=== PATIENT | female | born 1950 | race Caucasian/White ===

== ENCOUNTER 2016-12-24 22:36 | Emergency (ER) | payer MEDICARE, SELFPAY ==
[2016-12-24 22:46] VITALS: BP 132/70
[2016-12-24] MEDS ORDERED: Sodium Chloride 0.9% 10 ML Syringe FLUSH PRN (22:54)
[2016-12-24] MEDS ORDERED: HYDROmorphone 1 MG/ML Syringe IVPUSH ONE ×2 (22:55→23:30)
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
[2016-12-25] MEDS ORDERED: Ketorolac 30 MG/ML SDV IVPUSH ONE (00:23)
[2016-12-25] MEDS ORDERED: fentaNYL 100 MCG/2 ML SDV IVPUSH ONE (00:23)
[2016-12-25] MEDS ORDERED: Famotidine 20 MG Tab PO ONE (01:17)
--- NOTE | 2016-12-25 07:35 | CR ---
Chest: Portable view of the chest was obtained. Comparison: Previous chest x-ray of 06/06/16. Heart is slightly prominent. Tortuous thoracic aorta is seen. Lungs are clear. Minimal scoliosis is present within the spine. Bony structures are osteopenic. Impression: 1. Findings as described above. Nothing acute is identified on portable chest x-ray. Diagnostic code #2
== END 2016-12-25 02:17 | disposition home or self-care (01) ==
LOC: JD.ED 22:36
DX: R07.89 Other chest pain (principal); M54.5 Low back pain; J44.9 Chronic obstructive pulmonary disease, unspecified; M19.90 Unspecified osteoarthritis, unspecified site; E11.9 Type 2 diabetes mellitus without complications; M81.0 Age-related osteoporosis without current pathological fracture; F17.210 Nicotine dependence, cigarettes, uncomplicated; Z79.899 Other long term (current) drug therapy; Z88.1 Allergy status to other antibiotic agents; Z88.6 Allergy status to analgesic agent; Z88.8 Allergy status to other drugs, medicaments and biological substances; Z91.030 Bee allergy status; Z79.02 Long term (current) use of antithrombotics/antiplatelets
CPT/HCPCS: 36415; 71010; 80053; 84484; 85025; 93005; 96374; 96375; 96376; 99285; A9270; J1170; J1885; J3010; J7050; 99284

== ENCOUNTER 2017-01-06 23:25 | Emergency (ER) | payer MEDICARE, SELFPAY ==
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
[2017-01-06 23:46] VITALS: BP 112/86
[2017-01-07] MEDS ORDERED: LORazepam 2 MG/ML MDV IVPUSH ONE (00:27)
[2017-01-07] MEDS ORDERED: diphenhydrAMINE 50 MG/ML SDV IVPUSH ONE (02:01)
[2017-01-07] MEDS ORDERED: Lactated Ringers 1,000 ML IV ONE (02:01)
[2017-01-07] MEDS ORDERED: Doxycycline 100 MG Cap PO ONE (02:33)
--- NOTE | 2017-01-07 14:37 | CR ---
Chest: Portable view of the chest was obtained. Comparison: Previous chest x-ray of 12/24/16. Heart size mildly prominent. Mild tortuosity of the thoracic aorta is seen. Scoliosis is present within the spine. Lungs are clear with no acute infiltrates. Impression: 1. Incidental findings as noted above. Nothing acute is identified on portable chest x-ray. Diagnostic code #2
--- NOTE | 2017-01-07 14:37 | CT ---
Head CT Technique: Multiple axial sections through the brain were obtained. Intravenous contrast was not utilized. Comparison: Previous head CT study of 05/09/16. Findings: Ventricles along with basal cisterns and sulci over the convexities are mildly prominent. Minimal diminished density is noted within the periventricular white matter compatible with minimal small vessel ischemic demyelination change. No other abnormal parenchymal densities are seen. No evidence of intracranial hemorrhage. No midline shift or mass effect is seen. Bone window settings were reviewed which show no discrete calvarial abnormality. Visualized sinuses show minimal mucosal thickening within the ethmoid and left side of the sphenoid sinus. Impression: 1. Mild senescent change. Minimal sinus findings. 2. No acute abnormality is seen on noncontrast head CT. Diagnostic code #2 I agree with preliminary report issued by [facility] ([facility] preliminary report dictated on 01/07/17, 3:20 AM Central Time)
== END 2017-01-07 03:05 | disposition home or self-care (01) ==
LOC: JD.ED 23:25
DX: T63.441A Toxic effect of venom of bees, accidental (unintentional), initial encounter (principal); L03.114 Cellulitis of left upper limb; F41.9 Anxiety disorder, unspecified; J44.9 Chronic obstructive pulmonary disease, unspecified; M19.90 Unspecified osteoarthritis, unspecified site; E11.9 Type 2 diabetes mellitus without complications; F17.210 Nicotine dependence, cigarettes, uncomplicated; Z79.899 Other long term (current) drug therapy; Z88.6 Allergy status to analgesic agent; Z88.1 Allergy status to other antibiotic agents; R51 Headache
CPT/HCPCS: 36415; 70450; 71010; 80053; 83735; 85025; 93005; 96374; 99285; A9270; J2060; 99284

== ENCOUNTER 2017-03-21 00:50 | Emergency (ER) | payer MEDICARE, SELFPAY ==
[2017-03-21 01:14] VITALS: BP 108/62
--- NOTE | 2017-03-21 01:14 | EDM.PDOC ---
ED HPI GENERAL MEDICAL PROBLEM - General Chief Complaint: Gastrointestinal Problem Stated Complaint: BLOOD IN STOOL Time Seen by Provider: 03/21/17 01:14 - History of Present Illness INITIAL COMMENTS - FREE TEXT/NARRATIVE: 66-year-old female presents emergency room with rectal bleeding and concerns about needing a blood transfusion. Patient is had chronic intermittent rectal bleeding but this seems to be getting worse over the last couple of days. She notices this only when she has a BM or attempts to have a BM. The blood is described as bright red in the toilet the patient tries to pad the area with wipes and these start out with bright red discoloration but get darker with time. The patient has problems with chronic constipation. The patient has had long-standing external hemorrhoids. The patient denies any fevers or chills. She has not had any abdominal discomfort no nausea or vomiting. She has noticed some dizziness at times. Generalized Pain Score (Numeric/FACES): 9 - Related Data Allergies Allergy/AdvReac Type Severity Reaction Status Date / Time chlorhexidine Allergy Cannot Verified 03/21/17 01:27 Remember hornet venom Allergy Cannot Verified 03/21/17 01:27 Remember ibuprofen Allergy Bleeding Verified 03/21/17 01:27 venom-honey bee Allergy Cannot Verified 03/21/17 01:27 [bee venom (honey bee)] Remember doxycycline AdvReac Headache Verified 03/21/17 01:27 Home Meds: Home Meds Atenolol [Atenolol] 1 tab PO DAILY 05/09/16 [History] Clopidogrel [Plavix] 1 tab PO DAILY 05/09/16 [History] Dextromethorphan HBr/Chlor-Mal [Robitussin Long-Acting] 5 ml PO Q8H PRN [History] Diazepam [Diazepam] 1 tab PO BID PRN 05/09/16 [History] Dicyclomine [Bentyl] 10 mg PO QID 05/09/16 [History] Furosemide [Furosemide] 1 tab PO DAILY 05/09/16 [History] Glimepiride [Amaryl] 2 mg PO DAILY 05/09/16 [History] Loratadine [Claritin] 10 mg PO DAILY 05/09/16 [History] Multivitamin with Minerals [Hair, Skin & Nails] 1 tab PO DAILY 05/09/16 [History ] Omeprazole 20 mg PO DAILY 05/09/16 [History] Potassium Chloride 10 meq PO DAILY 05/09/16 [History] diphenhydrAMINE HCl [Allergy Relief] 2 tab PO DAILY PRN 05/09/16 [History] Hydrocortisone [Anusol-Hc] 30 gm TP Q12H #1 cream..g. 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 OB/BYN History: 3 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 Musculoskeletal History: Reports: Back Pain, Chronic, Fibromyalgia, Osteoarthritis Endocrine/Metabolic History: Reports: Diabetes, Type II, Osteoporosis - Past Surgical History Musculoskeletal Surgical History: Reports: Other (See Below) Social & Family History - Family History Family Medical History: Noncontributory - Tobacco Use Smoking Status *Q: Current Every Day Smoker Years of Tobacco use: 50 Packs/Tins Daily: 0.5 Used Tobacco, but Quit: No Second Hand Smoke Exposure: Yes - Caffeine Use Caffeine Use: Reports: Coffee - Recreational Drug Use Recreational Drug Use: No - Living Situation & Occupation Living situation: Reports: Single Occupation: Disabled ED ROS GENERAL - Review of Systems Review Of Systems: See Below Constitutional: Reports: No Symptoms Respiratory: Reports: No Symptoms, Cough GI/Abdominal: Reports: Bloody Stool, Constipation, Other (Blood with stool bright red). Denies: Abdominal Pain, Anorexia, Black Stool, Diarrhea, Hematochezia, Nausea, Vomiting ED EXAM, GI/ABD - Physical Exam Exam: See Below Exam Limited By: No Limitations General Appearance: Alert, No Apparent Distress Respiratory/Chest: No Respiratory Distress, Lungs Clear, Normal Breath Sounds Cardiovascular: Regular Rate, Rhythm, No Edema, No Murmur GI/Abdominal Exam: Normal Bowel Sounds, Soft, Non-Tender Rectal (Female) Exam: Normal Rectal Tone, Other (Patient has significant external hemorrhoids normal colored stool obtained is Hemoccult negative the patient has placed wipes near her rectum these do have blood on them that is mostly dried) Course - Vital Signs Last Recorded V/S: Last Vital Signs Temp 36.5 C 03/21/17 01:09 Pulse 78 03/21/17 01:09 Resp 16 03/21/17 01:09 BP 108/62 03/21/17 01:09 Pulse Ox 93 L 03/21/17 01:09 - Orders/Labs/Meds Orders: Active Orders 24 hr Category Date Time Status Abdomen 1V Flat [CR] Stat Exams 03/21/17 01:54 Taken Labs: Laboratory Tests 03/21/17 03/21/17 Range/Units 02:19 02:19 WBC 8.01 (3.98-10.04) K/mm3 RBC 4.26 (3.98-5.22) M/mm3 Hgb 13.0 (11.2-15.7) gm/L Hct 39.5 (34.1-44.9) % MCV 92.7 (79.4-94.8) fl MCH 30.5 (25.6-32.2) pg MCHC 32.9 (32.2-35.5) g/dl RDW Std Deviation 47.4 H (36.4-46.3) fL Plt Count 243 (182-369) K/mm3 MPV 9.8 (9.4-12.3) fl Neutrophils % (Manual) 65 H (40-60) % Band Neutrophils % 0 (0-10) % Lymphocytes % (Manual) 23 (20-40) % Atypical Lymphs % 0 % Monocytes % (Manual) 4 (2-10) % Eosinophils % (Manual) 5 (0.7-5.8) % Basophils % (Manual) 3 H (0.1-1.2) Platelet Estimate Adequate Plt Morphology Comment Normal RBC Morph Comment Normal Sodium 143 (136-145) mEq/L Potassium 4.1 (3.5-5.1) mEq/L Chloride 106 (98-107) mEq/L Carbon Dioxide 30 (21-32) mEq/L Anion Gap 11.1 (5-15) BUN 13 (7-18) mg/dL Creatinine 1.0 (0.55-1.02) mg/dL Est Cr Clr Drug Dosing 56.27 mL/min Estimated GFR (MDRD) 55 (>60) mL/min BUN/Creatinine Ratio 13.0 L (14-18) Glucose 114 (80-115) mg/dL Calcium 9.4 (8.5-10.1) mg/dL Total Bilirubin 0.2 (0.2-1.0) mg/dL AST 13 L (15-37) U/L ALT 16 (14-59) U/L Alkaline Phosphatase 55 (46-116) U/L Total Protein 7.2 (6.4-8.2) g/dl Albumin 3.6 (3.4-5.0) g/dl Globulin 3.6 gm/dL Albumin/Globulin Ratio 1.0 (1-2) - Re-Assessments/Exams Free Text/Narrative Re-Assessment/Exam: 03/21/17 04:04 Her hemoglobin and hematocrit are stable her RDW is a little elevated and her RBC indices are approaching the lower end of normal. The patient did have a Hemoccult test done rectal exam showed significant external hemorrhoids. She clearly had some blood on the tissue she had up there however was no gross blood seen on the stool obtained from digital rectal exam the stool was Hemoccult checked and was Hemoccult negative. This is suggestive of bleeding coming from the hemorrhoids. The patient be started anusol hc, she has problems with chronic constipation we'll start lactulose, and recommend sitz baths. Departure - Departure Time of Disposition: 04:06 Disposition: Home, Self-Care 01 Clinical Impression: Hemorrhoids - Discharge Information Prescriptions: Hydrocortisone [Anusol-Hc] 30 gm TP Q12H #1 cream..g. Lactulose 10 gm PO Q24H #500 ml Referrals: Tyrone Rivas MD [Primary Care Provider] - Forms: ED Department Discharge Additional Instructions: Return to the emergency room with any questions problems worsening symptoms. Follow-up with your regular physician next week for recheck. Discuss if your hemorrhoids are improving. Discuss any more bleeding. Discuss how the constipation is going. And mention your CBC in the emergency room possibly suggest an early iron deficiency process. You been started on 2 medications the first one is Anusol HC this is a cream for hemorrhoids apply this twice daily for 10 days. You been started on lactulose this is for constipation start out with 2 tablespoons a day if the stool gets excessively soft decrease to 1 tablespoon daily. Controlling the constipation will be essential to getting the hemorrhoids to improve. Sit in warm water several times a day. Epsom salts may be beneficial. - My Orders Last 24 Hours: My Active Orders 03/21/17 01:54 Abdomen 1V Flat [CR] Stat - Assessment/Plan Last 24 Hours: My Active Orders 03/21/17 01:54 Abdomen 1V Flat [CR] Stat
--- NOTE | 2017-03-21 09:42 | CR ---
Abdomen: Supine view of the abdomen was obtained. Comparison: No previous abdominal x-ray. Two cannulated screws cross the left sacroiliac joint. Old healed trauma is noted around the pubic symphysis. Mild scoliosis is noted within the spine. Bowel gas pattern is normal. Calcification is seen within the pelvis compatible with phlebolith. Impression: 1. Nonspecific abdominal study with incidental findings as described above. Diagnostic code #2
== END 2017-03-21 04:30 | disposition home or self-care (01) ==
LOC: JD.ED 00:50
DX: K64.4 Residual hemorrhoidal skin tags (principal); J44.9 Chronic obstructive pulmonary disease, unspecified; E11.9 Type 2 diabetes mellitus without complications; F17.210 Nicotine dependence, cigarettes, uncomplicated; Z88.8 Allergy status to other drugs, medicaments and biological substances; Z88.1 Allergy status to other antibiotic agents; Z91.030 Bee allergy status; Z79.899 Other long term (current) drug therapy
CPT/HCPCS: 36415; 74000; 74000-26; 80053; 82270; 85025; 99283; 99283-25

== ENCOUNTER 2017-09-04 09:53 | Day surgery (SDC) | payer MEDICARE, OTHER ==
[~2017-09-04 09:53] MED LIST: Bupivacaine 0.5%/EPINEPHrine 1:200,000 50 ML MDV ONE; Lactated Ringers 1,000 ML IV SCH; Lidocaine 1% 0 ML ONE; Lidocaine 1% with EPINEPHrine 1:100,000 20 ML MDV ONE; Lidocaine 1%/Sod Bicarbonate in NS 8.4% 1 ML Syringe IDERM PRN; Midazolam 1 MG/ML 2 ML SDV ONE; Ondansetron 4 MG/2 ML SDV ONE; Propofol 200 MG/20 ML SDV ONE; Sodium Chloride 0.9% 10 ML Syringe FLUSH PRN; fentaNYL 100 MCG/2 ML SDV ONE
[2017-09-04] MEDS ORDERED: Ondansetron 4 MG/2 ML SDV ONE (10:18)
[2017-09-04] MEDS ORDERED: Propofol 200 MG/20 ML SDV ONE ×2 (10:19→11:28)
[2017-09-04] MEDS ORDERED: Lidocaine 1% 4 ML ONE (10:19)
[2017-09-04] MEDS ORDERED: Midazolam 1 MG/ML 2 ML SDV ONE (10:19)
[2017-09-04] MEDS ORDERED: fentaNYL 250 MCG/5 ML SDV ONE (10:19)
--- NOTE | 2017-09-04 10:25 | PCM.PREANE ---
Preanesthetic Assessment - Anesthesia/Transfusion/Family Hx Anesthesia History: Prior Anesthesia Without Reaction Family History of Anesthesia Reaction: No Transfusion History: No Prior Transfusion(s) - Review of Systems General: No Symptoms Pulmonary: No Symptoms Cardiovascular: Dyspnea on Exertion Gastrointestinal: No Symptoms Neurological: No Symptoms Other: Reports: Diabetes - Physical Assessment NPO Status Date: 09/03/17 NPO Status Time: 00:00 Pulse: 53 O2 Sat by Pulse Oximetry: 99 Respiratory Rate: 16 Blood Pressure: 166/65 Temperature: 36.6 C Height: 1.73 m Weight: 71.577 kg ASA Class: 3 Mental Status: Alert & Oriented x3 Airway Class: Mallampati = 1 Dentition: Reports: Dentures Thyro-Mental Finger Breadths: 3 Mouth Opening Finger Breadths: 2 ROM/Head Extension: Limited/Partial Lungs: Normal Respiratory Effort, Decreased Breath Sounds Cardiovascular: Regular Rate, Regular Rhythm - Allergies Allergies/Adverse Reactions: Allergies Allergy/AdvReac Type Severity Reaction Status Date / Time amoxicillin [From Augmentin] Allergy Cannot Verified 09/03/17 13:03 Remember chlorhexidine Allergy Cannot Verified 09/03/17 13:03 Remember clavulanic acid Allergy Cannot Verified 09/03/17 13:03 [From Augmentin] Remember hornet venom Allergy Cannot Verified 09/03/17 13:03 Remember hydrocodone Allergy Cannot Verified 09/03/17 13:03 Remember ibuprofen Allergy Bleeding Verified 09/03/17 13:03 venom-honey bee Allergy Cannot Verified 09/03/17 13:03 [bee venom (honey bee)] Remember doxycycline AdvReac Headache Verified 09/03/17 13:03 - Anesthesia Plan Pre-Op Medication Ordered: Beta Emanuel Beta Emanuel: Atenolol Med Last Dose Date: 09/04/17 Med Last Dose Time: 08:30 - Acknowledgements Anesthesia Type Planned: MAC Pt an Appropriate Candidate for the Planned Anesthesia: Yes Alternatives and Risks of Anesthesia Discussed w Pt/Guardian: Yes Pt/Guardian Understands and Agrees with Anesthesia Plan: Yes PreAnesthesia Questionnaire HEENT History: Reports: Allergic Rhinitis, Sinusitis Cardiovascular History: Reports: CAD, Hypertension Respiratory History: Reports: Bronchitis, Recurrent, COPD Gastrointestinal History: Reports: Hemorrhoids [employer] History: Reports: Other OB/BYN History: 3 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 Musculoskeletal History: Reports: Arthritis, Back Pain, Chronic, Fibromyalgia, Osteoarthritis, Osteoporosis Neurological History: Reports: Headaches, Chronic Psychiatric History: Reports: Anxiety, Depression Endocrine/Metabolic History: Reports: Diabetes, Type II, Osteoporosis Hematologic History: Reports: None Immunologic History: Reports: None Oncologic (Cancer) History: Reports: None Dermatologic History: Reports: Other (See Below) Other Dermatologic History: bug bite - Past Surgical History Head Surgeries/Procedures: Reports: None HEENT Surgical History: Reports: Cataract Surgery, Tonsillectomy Cardiovascular Surgical History: Reports: None Respiratory Surgical History: Reports: None GI Surgical History: Reports: None Female Surgical History: Reports: Hysterectomy, Oophorectomy Other Female Surgeries/Procedures: pt states "partial hysterectomy, I still have my ovaries." Endocrine Surgical History: Reports: None Neurological Surgical History: Reports: None Musculoskeletal Surgical History: Reports: Other (See Below) Other Musculoskeletal Surgeries/Procedures:: back surgery. Oncologic Surgical History: Reports: None - SUBSTANCE USE Smoking Status *Q: Current Every Day Smoker Tobacco Use Within Last Twelve Months: Cigarettes Second Hand Smoke Exposure: Yes Days Per Week of Alcohol Use: 0 Number of Drinks Per Day: 0 Total Drinks Per Week: 0 Recreational Drug Use History: No - HOME MEDS Home Medications: Home Meds Atenolol [Atenolol] 50 tab PO DAILY 05/09/16 [History] Clopidogrel [Plavix] 75 mg PO DAILY 05/09/16 [History] Dextromethorphan HBr/Chlor-Mal [Robitussin Long-Acting] 5 ml PO Q8H PRN [History] Diazepam [Diazepam] 5 mg PO BID PRN 05/09/16 [History] Dicyclomine [Bentyl] 10 mg PO QID 05/09/16 [History] Furosemide [Furosemide] 20 mg PO DAILY 05/09/16 [History] Glimepiride [Amaryl] 2 mg PO DAILY 05/09/16 [History] Loratadine [Claritin] 10 mg PO DAILY 05/09/16 [History] Multivitamin with Minerals [Hair, Skin & Nails] 1 tab PO DAILY 05/09/16 [History ] Omeprazole 20 mg PO DAILY 05/09/16 [History] Potassium Chloride 10 meq PO DAILY 05/09/16 [History] diphenhydrAMINE HCl [Allergy Relief] 2 tab PO DAILY PRN 05/09/16 [History] Hydrocortisone [Anusol-Hc] 30 gm TP Q12H #1 cream..g. 03/21/17 [Rx] Lactulose 10 gm PO Q24H #500 ml 03/21/17 [Rx] Albuterol [Proair HFA] 1 - 2 puff INH Q4H PRN 09/03/17 [History] EPINEPHrine [Epipen] 1 dose IM ONETIME PRN 09/03/17 [History] Fluticasone Propionate [Flonase] 1 spray NASBOTH BID 09/03/17 [History] Ibandronate Sodium 150 mg PO ASDIRECTED 09/03/17 [History] Rosuvastatin [Crestor] 10 mg PO DAILY 09/03/17 [History] - CURRENT (IN HOUSE) MEDS Current Meds: Current Medications Lactated Ringer's (Ringers, Lactated) 1,000 mls @ 125 mls/hr IV ASDIRECTED FRANNIE Lidocaine/Sodium Bicarbonate (Buffered Lidocaine 1% In Ns 8.4%) 0.25 ml IDERM ONETIME PRN PRN Reason: Prior to IV Start Sodium Chloride (Saline Flush) 10 ml FLUSH ASDIRECTED PRN PRN Reason: Keep Vein Open Discontinued Medications Bupivacaine HCl/Epinephrine Bitart (Marcaine 0.5%/Epinephrine 1:200,000) Confirm Administered Dose 50 ml .ROUTE .STK-MED ONE Stop: 09/04/17 09:45 Dibucaine (Nupercainal 1% Oint) Confirm Administered Dose 28.35 gm .ROUTE .STK- MED ONE Stop: 09/04/17 09:53 Fentanyl (Sublimaze) Confirm Administered Dose 100 mcg .ROUTE .STK-MED ONE Stop: 09/04/17 09:06 Fentanyl (Sublimaze) Confirm Administered Dose 250 mcg .ROUTE .STK-MED ONE Stop: 09/04/17 10:20 Lidocaine HCl (Xylocaine-Mpf 1%) Confirm Administered Dose 4 mls @ as directed .ROUTE .STK-MED ONE Stop: 09/04/17 09:06 Lidocaine HCl (Xylocaine-Mpf 1%) Confirm Administered Dose 4 mls @ as directed .ROUTE .STK-MED ONE Stop: 09/04/17 10:20 Lidocaine/Epinephrine (Xylocaine 1% With Epinephrine 1:100,000) Confirm Administered Dose 20 ml .ROUTE .STK-MED ONE Stop: 09/04/17 09:45 Midazolam HCl (Versed 1 Mg/Ml) Confirm Administered Dose 2 mg .ROUTE .STK-MED ONE Stop: 09/04/17 09:06 Midazolam HCl (Versed 1 Mg/Ml) Confirm Administered Dose 2 mg .ROUTE .STK-MED ONE Stop: 09/04/17 10:20 Ondansetron HCl (Zofran) Confirm Administered Dose 4 mg .ROUTE .STK-MED ONE Stop: 09/04/17 09:06 Ondansetron HCl (Zofran) Confirm Administered Dose 4 mg .ROUTE .STK-MED ONE Stop: 09/04/17 10:19 Propofol (Diprivan 20 Ml) Confirm Administered Dose 200 mg .ROUTE .STK-MED ONE Stop: 09/04/17 09:06 Propofol (Diprivan 20 Ml) Confirm Administered Dose 200 mg .ROUTE .STK-MED ONE Stop: 09/04/17 10:20
[2017-09-04] MEDS ORDERED: Ertapenem 1 GM in Sodium Chloride 0.9% 100 ML IV ONE (10:45)
--- NOTE | 2017-09-04 11:28 | PCM.OPNOTE ---
- General Post-Op/Procedure Note Date of Surgery/Procedure: 09/04/17 Operative Procedure(s): Stapled hemorrhoidal pexy--PPH Findings: 1. Prolapsing 3 column hemorrhoids 2. Diminutive rectal polyp Pre Op Diagnosis: Grade 3 internal hemorrhoids Post-Op Diagnosis: Same. Diminutive rectal polyp Anesthesia Technique: Local, MAC, Moderate Sedation Primary Surgeon: El Graham Pathology: 1. Rectal polyp 2. Rectal mucosal EBL in mLs: 5 Complications: None Condition: Good Free Text/Narrative:: After adequate IV sedation and analgesia was obtained with monitoring the patient was placed in the prone jackknife position with her buttocks taped. The perianal region was prepped with Betadine and draped with field towels. A perianal block was administered with local analgesia. Inspection revealed the internal prolapsing hemorrhoids. Anoscopy revealed the hemorrhoids as well. A 2- 0 Prolene pursestring suture was placed about 4 cm from the dentate line. A circular stapler was inserted into the anal canal and fired. The staple line was hemostatic. There was a small diminutive polyp about 2 cm from the dentate line anteriorly which I excised with cautery. This was sent to pathology. Surgicel and ointment were applied to the anal canal. There were no complications.
[2017-09-04 12:03] VITALS: BP 166/65
--- NOTE | 2017-09-04 12:04 | PCM48HPAN ---
Post Anesthesia Note - EVALUATION WITHIN 48HRS OF ANESTHETIC Vital Signs in Normal Range: Yes Patient Participated in Evaluation: Yes Respiratory Function Stable: Yes Airway Patent: Yes Cardiovascular Function Stable: Yes Hydration Status Stable: Yes Pain Control Satisfactory: Yes Nausea and Vomiting Control Satisfactory: Yes Mental Status Recovered: Yes Pulse Rate: 53 SaO2: 91 Resp Rate: 14 Temperature: 36.6 C Blood Pressure: 166/65 Pulse Rate: 53 - COMMENTS/OBSERVATIONS Free Text/Narrative:: no anesthesia complications noted
[2017-09-04] MEDS ORDERED: traMADol 50 MG Tab PO ONE (13:00)
== END 2017-09-04 13:07 | disposition home or self-care (01) ==
LOC: JD.SDS 09:53
PROVIDERS: ATTEND Surgery
DX: K62.1 Rectal polyp (principal); F41.9 Anxiety disorder, unspecified; I25.10 Atherosclerotic heart disease of native coronary artery without angina pectoris; F32.9 Major depressive disorder, single episode, unspecified; I10 Essential (primary) hypertension; E11.9 Type 2 diabetes mellitus without complications; Z88.1 Allergy status to other antibiotic agents; Z88.8 Allergy status to other drugs, medicaments and biological substances; Z91.030 Bee allergy status; Z79.899 Other long term (current) drug therapy; F17.210 Nicotine dependence, cigarettes, uncomplicated
CPT/HCPCS: 46947; 82962; A9270; J1335; J2250; J2405; J3010; J7030; J7120; J2704

== ENCOUNTER 2017-09-09 23:21 | Emergency (ER) | payer MEDICARE, OTHER ==
[2017-09-09 23:29] VITALS: BP 107/65
[2017-09-09] MEDS ORDERED: Sodium Chloride 0.9% 10 ML Syringe FLUSH PRN (23:38)
[2017-09-09] MEDS ORDERED: HYDROmorphone 1 MG/ML Syringe IVPUSH ONE (23:40)
[2017-09-09] MEDS ORDERED: Sodium Chloride 0.9% 1,000 ML IV SCH (23:45)
[2017-09-09] MEDS ORDERED: HYDROmorphone 0.5 MG/0.5 ML SYRINGE IVPUSH ONE (23:45)
--- NOTE | 2017-09-10 00:07 | EDM.PDOC ---
ED HPI GENERAL MEDICAL PROBLEM - General Chief Complaint: Gastrointestinal Problem Stated Complaint: PAIN FROM SURGERY Time Seen by Provider: 09/09/17 23:31 Source of Information: Reports: Patient History Limitations: Reports: No Limitations - History of Present Illness INITIAL COMMENTS - FREE TEXT/NARRATIVE: The patient presents with rectal pain and generalized abdominal pain going on for the past few days. She had internal hemorrhoids removed a few days ago by Dr Graham. The pain has gotten worse. She has no bleeding. She has no nausea and vomiting. She has no appetite. She has no fever, chills, cough, chest pain or shortness of breath. Onset: Gradual Duration: Day(s): (4) Location: Reports: Abdomen (and rectum) Severity: Severe Improves with: Reports: None Worsens with: Reports: None Associated Symptoms: Denies: Confusion, Chest Pain, Fever/Chills, Headaches, Nausea/Vomiting, Shortness of Breath Rectal Pain Score (Numeric/FACES): 10 - Related Data Allergies Allergy/AdvReac Type Severity Reaction Status Date / Time amoxicillin [From Augmentin] Allergy Cannot Verified 09/09/17 23:41 Remember chlorhexidine Allergy Cannot Verified 09/09/17 23:41 Remember clavulanic acid Allergy Cannot Verified 09/09/17 23:41 [From Augmentin] Remember hornet venom Allergy Cannot Verified 09/09/17 23:41 Remember hydrocodone Allergy Cannot Verified 09/09/17 23:41 Remember venom-honey bee Allergy Cannot Verified 09/09/17 23:41 [bee venom (honey bee)] Remember doxycycline AdvReac Headache Verified 09/09/17 23:41 ibuprofen AdvReac Bleeding Verified 09/09/17 23:41 Home Meds: Home Meds Atenolol 50 tab PO DAILY 05/09/16 [History] Clopidogrel [Plavix] 75 mg PO DAILY 05/09/16 [History] Dextromethorphan HBr/Chlor-Mal [Robitussin Long-Acting] 5 ml PO Q8H PRN [History] Diazepam 5 mg PO BID PRN 05/09/16 [History] Dicyclomine [Bentyl] 10 mg PO QID 05/09/16 [History] Furosemide 20 mg PO DAILY 05/09/16 [History] Glimepiride [Amaryl] 2 mg PO DAILY 05/09/16 [History] Loratadine [Claritin] 10 mg PO DAILY 05/09/16 [History] Multivitamin with Minerals [Hair, Skin and Nails] 1 tab PO DAILY 05/09/16 [ History] Omeprazole 20 mg PO DAILY 05/09/16 [History] Potassium Chloride 10 meq PO DAILY 05/09/16 [History] diphenhydrAMINE HCl [Allergy Relief] 2 tab PO DAILY PRN 05/09/16 [History] Hydrocortisone [Anusol-HC] 30 gm TP Q12H #1 cream..g. 03/21/17 [Rx] Lactulose 10 gm PO Q24H #500 ml 03/21/17 [Rx] Albuterol [Proair HFA] 1 - 2 puff INH Q4H PRN 09/03/17 [History] EPINEPHrine [Epipen] 1 dose IM ONETIME PRN 09/03/17 [History] Fluticasone Propionate [Flonase] 1 spray NASBOTH BID 09/03/17 [History] Ibandronate Sodium 150 mg PO ASDIRECTED 09/03/17 [History] Rosuvastatin [Crestor] 10 mg PO DAILY 09/03/17 [History] oxyCODONE HCl/Acetaminophen [Percocet 5-325 mg Tablet] 1 - 2 each PO Q6HR PRN # 20 tablet 09/10/17 [Rx] Past Medical History HEENT History: Reports: Allergic Rhinitis, Sinusitis Cardiovascular History: Reports: CAD, Hypertension Respiratory History: Reports: Bronchitis, Recurrent, COPD Gastrointestinal History: Reports: Hemorrhoids STONER OUT History: Reports: Other OB/BYN History: 3 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 Musculoskeletal History: Reports: Arthritis, Back Pain, Chronic, Fibromyalgia, Osteoarthritis, Osteoporosis Neurological History: Reports: Headaches, Chronic Psychiatric History: Reports: Anxiety, Depression Endocrine/Metabolic History: Reports: Diabetes, Type II, Osteoporosis Hematologic History: Reports: None Immunologic History: Reports: None Oncologic (Cancer) History: Reports: None Dermatologic History: Reports: Other (See Below) Other Dermatologic History: bug bite - Past Surgical History Head Surgeries/Procedures: Reports: None HEENT Surgical History: Reports: Cataract Surgery, Tonsillectomy Cardiovascular Surgical History: Reports: None Respiratory Surgical History: Reports: None GI Surgical History: Reports: None Female Surgical History: Reports: Hysterectomy, Oophorectomy Other Female Surgeries/Procedures: pt states "partial hysterectomy, I still have my ovaries." Endocrine Surgical History: Reports: None Neurological Surgical History: Reports: None Musculoskeletal Surgical History: Reports: Other (See Below) Other Musculoskeletal Surgeries/Procedures:: back surgery. Oncologic Surgical History: Reports: None Social & Family History - Family History Family Medical History: Noncontributory - Tobacco Use Smoking Status *Q: Current Every Day Smoker Years of Tobacco use: 50 Packs/Tins Daily: 0.5 Used Tobacco, but Quit: No Second Hand Smoke Exposure: Yes - Caffeine Use Caffeine Use: Reports: Coffee - Alcohol Use Days Per Week of Alcohol Use: 0 Number of Drinks Per Day: 0 Total Drinks Per Week: 0 - Recreational Drug Use Recreational Drug Use: No - Living Situation & Occupation Living situation: Reports: Single Occupation: Disabled ED ROS GENERAL - Review of Systems Review Of Systems: See Below Constitutional: Reports: No Symptoms HEENT: Reports: No Symptoms Respiratory: Reports: No Symptoms Cardiovascular: Reports: No Symptoms Endocrine: Reports: No Symptoms GI/Abdominal: Reports: Abdominal Pain, Other (Rectal pain). Denies: Nausea, Vomiting : Reports: No Symptoms Musculoskeletal: Reports: No Symptoms ED EXAM, GI/ABD - Physical Exam Exam: See Below Exam Limited By: No Limitations General Appearance: Alert, No Apparent Distress Ears: Normal External Exam Nose: Normal Inspection Head: Atraumatic, Normocephalic Neck: Normal Inspection Respiratory/Chest: No Respiratory Distress, Lungs Clear, Normal Breath Sounds Cardiovascular: Regular Rate, Rhythm, No Edema, No Murmur GI/Abdominal Exam: Soft, No Organomegaly, No Mass, Tender (Mild generalized tenderness) Back Exam: Normal Inspection Extremities: Normal Inspection Course - Vital Signs Last Recorded V/S: Last Vital Signs Temp 97.7 F 09/09/17 23:26 Pulse 75 09/09/17 23:26 Resp 16 09/09/17 23:26 BP 107/65 09/09/17 23:26 Pulse Ox 100 09/09/17 23:26 - Orders/Labs/Meds Orders: Active Orders 24 hr Category Date Time Status Peripheral IV Care [RC] . DIRECTED Care 09/09/17 23:39 Active Abdomen Pelvis w Cont [CT] Stat Exams 09/09/17 23:38 Taken UA W/MICROSCOPIC [URIN] Stat Lab 09/09/17 23:38 Stop Req Sodium Chloride 0.9% [Normal Saline] 1,000 ml Med 09/09/17 23:45 Active IV ASDIRECTED Sodium Chloride 0.9% [Saline Flush] Med 09/09/17 23:38 Active 10 ml FLUSH ASDIRECTED PRN ED Antiemetic Medication Reflex [OM.PC] Stat Oth 09/09/17 23:38 Ordered Peripheral IV Insertion Adult [OM.PC] Stat Ot 09/09/17 23:38 Ordered Medication Orders Sodium Chloride (Normal Saline) 1,000 mls @ 125 mls/hr IV ASDIRECTED FRANNIE Last Admin: 09/09/17 23:50 Dose: 125 mls/hr Sodium Chloride (Saline Flush) 10 ml FLUSH ASDIRECTED PRN PRN Reason: Keep Vein Open Last Admin: 09/09/17 23:51 Dose: 10 ml Labs: Laboratory Tests 09/09/17 09/09/17 Range/Units 23:53 23:53 WBC 8.16 (3.98-10.04) K/mm3 RBC 4.06 (3.98-5.22) M/mm3 Hgb 12.0 (11.2-15.7) gm/L Hct 37.9 (34.1-44.9) % MCV 93.3 (79.4-94.8) fl MCH 29.6 (25.6-32.2) pg MCHC 31.7 L (32.2-35.5) g/dl RDW Std Deviation 44.9 (36.4-46.3) fL Plt Count 330 (182-369) K/mm3 MPV 9.3 L (9.4-12.3) fl Neut % (Auto) 53.0 (34.0-71.1) % Lymph % (Auto) 34.9 (19.3-51.7) % Metcalfe % (Auto) 7.1 (4.7-12.5) % Eos % (Auto) 4.5 (0.7-5.8) Baso % (Auto) 0.4 (0.1-1.2) % Neut # (Auto) 4.32 (1.56-6.13) K/mm3 Lymph # (Auto) 2.85 (1.18-3.74) K/mm3 Metcalfe # (Auto) 0.58 H (0.24-0.36) K/mm3 Eos # (Auto) 0.37 H (0.04-0.36) K/mm3 Baso # (Auto) 0.03 (0.01-0.08) K/mm3 Sodium 141 (136-145) mEq/L Potassium 3.6 (3.5-5.1) mEq/L Chloride 103 (98-107) mEq/L Carbon Dioxide 29 (21-32) mEq/L Anion Gap 12.6 (5-15) BUN 14 (7-18) mg/dL Creatinine 0.9 (0.55-1.02) mg/dL Est Cr Clr Drug Dosing 61.65 mL/min Estimated GFR (MDRD) > 60 (>60) mL/min BUN/Creatinine Ratio 15.6 (14-18) Glucose 158 H (80-115) mg/dL Calcium 9.1 (8.5-10.1) mg/dL Total Bilirubin 0.1 L (0.2-1.0) mg/dL AST 15 (15-37) U/L ALT 20 (14-59) U/L Alkaline Phosphatase 69 (46-116) U/L Total Protein 7.5 (6.4-8.2) g/dl Albumin 3.5 (3.4-5.0) g/dl Globulin 4.0 gm/dL Albumin/Globulin Ratio 0.9 L (1-2) Lipase 89 (73-393) U/L Meds: Medications Generic Name Dose Route Start Last Admin Trade Name Freq PRN Reason Stop Dose Admin Sodium Chloride 1,000 mls @ 125 mls/hr 09/09/17 23:45 09/09/17 23:50 Normal Saline IV 125 mls/hr ASDIRECTED FRANNIE Administration Sodium Chloride 10 ml 09/09/17 23:38 09/09/17 23:51 Saline Flush FLUSH 10 ml ASDIRECTED PRN Administration Keep Vein Open Discontinued Medications Generic Name Dose Route Start Last Admin Trade Name Freq PRN Reason Stop Dose Admin Diatrizoate Meglum/Diatrizoate Sod 120 ml 09/10/17 00:58 09/10/17 02:01 Gastrografin 37% PO 09/10/17 00:59 120 ml ONETIME ONE Administration Hydromorphone HCl 1 mg 09/09/17 23:40 Dilaudid IVPUSH 09/09/17 23:41 ONETIME ONE Hydromorphone HCl 1 mg 09/09/17 23:45 09/09/17 23:51 Dilaudid IVPUSH 09/09/17 23:46 1 mg ONETIME ONE Administration Iopamidol 125 ml 09/10/17 00:58 09/10/17 01:59 Isovue-300 (61%) IVPUSH 09/10/17 00:59 125 ml ONETIME ONE Administration - Re-Assessments/Exams Free Text/Narrative Re-Assessment/Exam: 09/10/17 00:06 I ordered an IV NS 125mL/hr, zofran 4mg IV, dilaudid 1mg IV, labs, UA and a CT of her abdomen and pelvis. 09/10/17 02:16 Her CBC and CMP look good. My nurse and I looked at her rectum and she had a hemorrhoid but it was not thrombosed. She was tender around the rectum but no sign of an abscess. Her CT shows nothing acute. I will give her some percocet for pain. Departure - Departure Time of Disposition: 02:20 Disposition: Home, Self-Care 01 Condition: Good Clinical Impression: Rectal pain Hemorrhoid Qualifiers: Hemorrhoid type: other Qualified Code(s): K64.8 - Other hemorrhoids - Discharge Information Prescriptions: oxyCODONE HCl/Acetaminophen [Percocet 5-325 mg Tablet] 1 - 2 each PO Q6HR PRN # 20 tablet PRN Reason: Pain Referrals: Tyrone Rivas MD [Primary Care Provider] - Forms: ED Department Discharge Additional Instructions: Take your medicine as prescribed. Take the percocet as needed for pain. Drink plenty of fluids. Take a stool softner such as colace daily. Please return if you are worse. - My Orders Last 24 Hours: My Active Orders 09/09/17 23:38 Abdomen Pelvis w Cont [CT] Stat UA W/MICROSCOPIC [URIN] Stat Sodium Chloride 0.9% [Saline Flush] 10 ml FLUSH ASDIRECTED PRN ED Antiemetic Medication Reflex [OM.PC] Stat Peripheral IV Insertion Adult [OM.PC] Stat 09/09/17 23:39 Peripheral IV Care [RC] . DIRECTED 09/09/17 23:45 Sodium Chloride 0.9% [Normal Saline] 1,000 ml IV ASDIRECTED - Assessment/Plan Last 24 Hours: My Active Orders 09/09/17 23:38 Abdomen Pelvis w Cont [CT] Stat UA W/MICROSCOPIC [URIN] Stat Sodium Chloride 0.9% [Saline Flush] 10 ml FLUSH ASDIRECTED PRN ED Antiemetic Medication Reflex [OM.PC] Stat Peripheral IV Insertion Adult [OM.PC] Stat 09/09/17 23:39 Peripheral IV Care [RC] . DIRECTED 09/09/17 23:45 Sodium Chloride 0.9% [Normal Saline] 1,000 ml IV ASDIRECTED
[2017-09-10] MEDS ORDERED: Iopamidol 612 MG/ML 150 ML Bottle IVPUSH ONE (00:58)
[2017-09-10] MEDS: Diatrizoate Meglumine/Diatrizoate Sodium 37% 120 ML Bottle PO ONE ×2 (01:59→02:01)
[2017-09-10] MEDS ORDERED: HYDROmorphone 0.5 MG/0.5 ML SYRINGE IVPUSH ONE (02:15)
--- NOTE | 2017-09-10 08:01 | CT ---
CT abdomen and pelvis Technique: Multiple axial sections were obtained from above the dome of the diaphragm inferiorly through the pubic symphysis. Intravenous and oral contrast has been given. Delayed images were also obtained through the pelvis. Comparison: No prior abdominal or pelvic CT exam. Findings: Small portion of the visualized lung bases show nothing acute. Liver shows no focal parenchymal abnormality. Adrenal glands show no nodule. Spleen appears within normal limits. Reflux of contrast is seen into the esophagus. Kidneys show symmetric contrast enhancement without hydronephrosis or mass. Aorta and iliac vessels show atherosclerotic change. Pancreas appears normal. No retroperitoneal adenopathy or mesenteric abnormalities are seen. Appendix is not definitely seen. Mild increased stool is noted within portions of the colon. No pelvic mass or adenopathy is seen. Delayed images show contrast within both distal ureters and within the bladder. Bone window settings shows 2 fixation screws across left sacroiliac joints. Disc space narrowing and vacuum phenomena is noted within the L5-S1 disc. Lesser degenerative disc change is seen throughout other portions of the spine. Impression: 1. Incidental findings as noted above. Nothing acute is appreciated on CT study of the abdomen and pelvis. Diagnostic code #2 I agree with preliminary report issued by [facility] preliminary report dictated on 09/10/17, 3:07 AM Central Time)
== END 2017-09-10 03:10 | disposition home or self-care (01) ==
LOC: JD.ED 23:21
DX: K64.8 Other hemorrhoids (principal); I10 Essential (primary) hypertension; I25.10 Atherosclerotic heart disease of native coronary artery without angina pectoris; J44.9 Chronic obstructive pulmonary disease, unspecified; F32.9 Major depressive disorder, single episode, unspecified; E11.9 Type 2 diabetes mellitus without complications; F17.210 Nicotine dependence, cigarettes, uncomplicated; Z79.02 Long term (current) use of antithrombotics/antiplatelets; Z79.899 Other long term (current) drug therapy; Z79.84 Long term (current) use of oral hypoglycemic drugs; Z88.1 Allergy status to other antibiotic agents; Z88.5 Allergy status to narcotic agent; Z88.6 Allergy status to analgesic agent; Z91.030 Bee allergy status; Z88.8 Allergy status to other drugs, medicaments and biological substances
CPT/HCPCS: 36415; 74177; 80053; 83690; 85025; 96361; 96374; 96376; 99284; J1170; J7040; J7050; Q9963; Q9967

== ENCOUNTER 2017-09-18 23:22 | Emergency (ER) | payer MEDICARE, SELFPAY ==
[2017-09-18 23:34] VITALS: BP 114/79
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
== END 2017-09-19 01:16 | disposition home or self-care (01) ==
LOC: JD.ED 23:22
DX: R10.2 Pelvic and perineal pain (principal); G89.29 Other chronic pain; I10 Essential (primary) hypertension; E11.9 Type 2 diabetes mellitus without complications; F17.210 Nicotine dependence, cigarettes, uncomplicated; Z88.1 Allergy status to other antibiotic agents; Z91.030 Bee allergy status; Z88.8 Allergy status to other drugs, medicaments and biological substances; Z79.899 Other long term (current) drug therapy; Z79.82 Long term (current) use of aspirin
CPT/HCPCS: 99283

== ENCOUNTER 2017-10-02 23:30 | Emergency (ER) | payer MEDICARE, OTHER ==
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
[2017-10-03] MEDS: Acetaminophen/oxyCODONE 325-5 MG Tab PO ONE (00:49)
[2017-10-03 00:57] VITALS: BP 112/70
== END 2017-10-03 00:50 | disposition home or self-care (01) ==
LOC: JD.ED 23:30
DX: M54.5 Low back pain (principal); G89.29 Other chronic pain; J44.9 Chronic obstructive pulmonary disease, unspecified; E78.00 Pure hypercholesterolemia, unspecified; I10 Essential (primary) hypertension; E11.9 Type 2 diabetes mellitus without complications; F32.9 Major depressive disorder, single episode, unspecified; F41.9 Anxiety disorder, unspecified; Z88.1 Allergy status to other antibiotic agents; Z88.8 Allergy status to other drugs, medicaments and biological substances; Z91.030 Bee allergy status; Z88.5 Allergy status to narcotic agent; Z79.82 Long term (current) use of aspirin; Z79.899 Other long term (current) drug therapy; Z77.22 Contact with and (suspected) exposure to environmental tobacco smoke (acute) (chronic)
CPT/HCPCS: 99283; A9270

== ENCOUNTER 2017-10-13 02:49 | Emergency (ER) | payer MEDICARE, OTHER ==
[2017-10-13 02:59] VITALS: BP 113/86
[2017-10-13] MEDS ORDERED: Meperidine PF 50 MG/ML Syringe IVPUSH ONE (03:19)
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
--- NOTE | 2017-10-13 12:46 | CR ---
Chest: Two views of the chest were obtained. Comparison: Prior chest x-ray of 07/23/17. Slight parenchymal density is seen within the lingula which is more prominent than on prior exam raising the possibility of small area of pneumonia. Lungs otherwise are clear. Several old right-sided rib fractures are seen. Mild scoliosis is noted within the spine. Anterior wedge deformity is noted within the mid thoracic spine which is stable. Mild degenerative change is seen within the mid thoracic spine. Impression: 1. Slight parenchymal density within the lingula possibly due to small area of pneumonia. 2. Other incidental findings as noted above. Diagnostic code #3
== END 2017-10-13 05:59 | disposition home or self-care (01) ==
LOC: JD.ED 02:49
DX: M54.9 Dorsalgia, unspecified (principal); R10.2 Pelvic and perineal pain; G89.29 Other chronic pain; E78.00 Pure hypercholesterolemia, unspecified; R25.8 Other abnormal involuntary movements; I10 Essential (primary) hypertension; J44.9 Chronic obstructive pulmonary disease, unspecified; F41.9 Anxiety disorder, unspecified; F32.9 Major depressive disorder, single episode, unspecified; E11.9 Type 2 diabetes mellitus without complications; F17.210 Nicotine dependence, cigarettes, uncomplicated; Z88.1 Allergy status to other antibiotic agents; Z88.8 Allergy status to other drugs, medicaments and biological substances; Z88.6 Allergy status to analgesic agent; Z79.899 Other long term (current) drug therapy
CPT/HCPCS: 36415; 71046; 80053; 81001; 83605; 84484; 85025; 93005; 96374; 99284; J2175

== ENCOUNTER 2018-01-29 23:12 | Emergency (ER) | payer MEDICARE, SELFPAY ==
[2018-01-29 23:24] VITALS: BP 112/75
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
[2018-01-30] MEDS: HYDROmorphone 0.5 MG/0.5 ML SYRINGE IM STA (00:06)
== END 2018-01-30 00:10 | disposition home or self-care (01) ==
LOC: JD.ED 23:12
DX: G89.29 Other chronic pain (principal); E11.9 Type 2 diabetes mellitus without complications; F17.210 Nicotine dependence, cigarettes, uncomplicated; Z79.899 Other long term (current) drug therapy; Z88.1 Allergy status to other antibiotic agents; Z88.6 Allergy status to analgesic agent; Z91.030 Bee allergy status; F41.9 Anxiety disorder, unspecified
CPT/HCPCS: 96372; 99283-25; J1170

== ENCOUNTER 2018-08-01 13:49 | Emergency (ER) | payer MEDICARE, OTHER ==
[2018-08-01 14:19] VITALS: BP 106/62
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
--- NOTE | 2018-08-01 16:49 | CR ---
Chest: Two views of the chest were obtained. Comparison: Prior chest x-ray of 07/08/18. Heart is slightly enlarged. Tortuous thoracic aorta is seen. Slight scarring is seen within the left base. No acute parenchymal change is seen within either lung. Anterior wedge deformity is noted within the mid thoracic spine which is stable. Impression: 1. Findings as noted above. Nothing acute is appreciated. Diagnostic code #2
== END 2018-08-01 16:19 | disposition home or self-care (01) ==
LOC: JD.ED 13:49
DX: J42 Unspecified chronic bronchitis (principal); I25.10 Atherosclerotic heart disease of native coronary artery without angina pectoris; I10 Essential (primary) hypertension; K21.9 Gastro-esophageal reflux disease without esophagitis; E11.9 Type 2 diabetes mellitus without complications; F41.9 Anxiety disorder, unspecified; F32.9 Major depressive disorder, single episode, unspecified; Z91.030 Bee allergy status; Z88.8 Allergy status to other drugs, medicaments and biological substances; Z91.011 Allergy to milk products; Z79.899 Other long term (current) drug therapy; Z77.22 Contact with and (suspected) exposure to environmental tobacco smoke (acute) (chronic); Z79.84 Long term (current) use of oral hypoglycemic drugs
CPT/HCPCS: 71046; 71046-26; 87804; 99284

== ENCOUNTER 2018-09-24 02:45 | Emergency (ER) | payer MEDICARE, OTHER ==
[2018-09-24 02:58] VITALS: BP 99/63
[2018-09-24] MEDS ORDERED: Amoxicillin 500 MG Cap PO ONE (03:43)
--- NOTE | 2018-09-24 03:49 | EDM.PDOC ---
ED HPI GENERAL MEDICAL PROBLEM - General Chief Complaint: Respiratory Problem Stated Complaint: COLD Time Seen by Provider: 09/24/18 03:05 - History of Present Illness INITIAL COMMENTS - FREE TEXT/NARRATIVE: 68 year old female comes in with cough, mild dyspnea, difficulty sleeping secondary to cough. Has had 2 recent courses of zithromax for similar sx. No chest pain at this time, does not feel short of breath at this time. Cough is dry, non prod. No current sore throat, fever or chills. Hx COPD Chest Pain Score (Numeric/FACES): 3 - Related Data Allergies Allergy/AdvReac Type Severity Reaction Status Date / Time hornet venom Allergy Cannot Verified 09/24/18 02:58 Remember ketoprofen Allergy Nausea Verified 09/24/18 02:58 lactose Allergy bloating Verified 09/24/18 02:58 Pork/Porcine Containing Allergy bloating Verified 09/24/18 02:58 Products venom-honey bee Allergy Cannot Verified 09/24/18 02:58 [bee venom (honey bee)] Remember doxycycline AdvReac Headache Verified 09/24/18 02:58 ibuprofen AdvReac Bleeding Verified 09/24/18 02:58 Home Meds: Home Meds Atenolol 50 tab PO DAILY 05/09/16 [History] Dicyclomine [Bentyl] 10 mg PO QID 05/09/16 [History] Furosemide 20 mg PO DAILY 05/09/16 [History] Glimepiride [Amaryl] 2 mg PO DAILY 05/09/16 [History] Loratadine [Claritin] 10 mg PO DAILY 05/09/16 [History] Omeprazole 20 mg PO DAILY 05/09/16 [History] Potassium Chloride 10 meq PO DAILY 05/09/16 [History] diazePAM [Diazepam] 5 mg PO QID PRN 05/09/16 [History] Albuterol [Proair HFA] 1 - 2 puff INH Q4H PRN 09/03/17 [History] EPINEPHrine [Epipen] 1 dose IM ONETIME PRN 09/03/17 [History] Dronabinol [Marinol] 2.5 mg PO TID 01/29/18 [History] Acetaminophen/Butalbital/Caff [Fioricet 325-50-40 MG] 1 tab PO Q6H PRN 07/09/18 [History] Amitriptyline [Elavil] 50 mg PO DAILY 07/09/18 [History] Budesonide [Rhinocort Allergy] 1 spray NASBOTH BID 07/09/18 [History] Lidocaine 5% [Lidoderm 5%] 1 dose TOP ASDIRECTED PRN 07/09/18 [History] atorvaSTATin [Lipitor] 10 mg PO DAILY 07/09/18 [History] Enoxaparin Sodium [Lovenox] 40 mg SQ DAILY #20 ml 07/10/18 [Rx] oxyCODONE HCl/Acetaminophen [Percocet 5-325 mg Tablet] 1 - 2 each PO Q6H PRN # 20 tablet 07/10/18 [Rx] Albuterol/Ipratropium [DuoNeb 3.0-0.5 MG/3 ML] 3 ml .XX Q8HR #30 neb 08/01/18 [ Rx] predniSONE [Prednisone] 20 mg PO DAILY #11 tablet 08/01/18 [Rx] Amoxicillin 500 mg PO Q8HR #20 capsule 09/24/18 [Rx] Past Medical History HEENT History: Reports: Allergic Rhinitis, Cataract, Impaired Vision Other HEENT History: Wears glasses Cardiovascular History: Reports: Arrhythmia, CAD, High Cholesterol, Hypertension Respiratory History: Reports: COPD Other Respiratory History: coughing Gastrointestinal History: Reports: GERD, Hemorrhoids Genitourinary History: Reports: None 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 FAT TESTER History: 3 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 Musculoskeletal History: Reports: Back Pain, Chronic, Fracture, Osteoarthritis, Osteoporosis, Other (See Below) Other Musculoskeletal History: fracture ankle currently in boot Neurological History: Reports: Concussion, Headaches, Chronic, TIA Psychiatric History: Reports: Anxiety, Depression, Other (See Below) Endocrine/Metabolic History: Reports: Diabetes, Type II Hematologic History: Reports: None Immunologic History: Reports: None Oncologic (Cancer) History: Reports: None Dermatologic History: Reports: Other (See Below) Other Dermatologic History: bug bite - Past Surgical History Head Surgeries/Procedures: Reports: None HEENT Surgical History: Reports: Cataract Surgery, Tonsillectomy Cardiovascular Surgical History: Reports: None Respiratory Surgical History: Reports: None GI Surgical History: Reports: Appendectomy, Other (See Below) Other GI Surgeries/Procedures: prolapsed hemorrhoid surgery Female Surgical History: Reports: Hysterectomy 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 Oncologic Surgical History: Reports: None Dermatological Surgical History: Reports: None Social & Family History - Family History Family Medical History: Noncontributory - Tobacco Use Smoking Status *Q: Current Every Day Smoker Years of Tobacco use: 50 Packs/Tins Daily: 0.5 - Caffeine Use Caffeine Use: Reports: None - Recreational Drug Use Recreational Drug Use: No - Living Situation & Occupation Living situation: Reports: , with Spouse Occupation: Retired ED ROS GENERAL - Review of Systems Review Of Systems: See Below Constitutional: Denies: Fever, Chills, Diaphoresis HEENT: Denies: Sinus Problem, Throat Pain Respiratory: Reports: Shortness of Breath (exertional, chronic), Wheezing ( occasional), Cough. Denies: Pleuritic Chest Pain, Sputum Cardiovascular: Denies: Chest Pain GI/Abdominal: Denies: Abdominal Pain, Nausea, Vomiting Musculoskeletal: Denies: Shoulder Pain, Arm Pain Skin: Reports: No Symptoms Neurological: Reports: No Symptoms ED EXAM, GENERAL - Physical Exam Exam: See Below General Appearance: Alert, No Apparent Distress Ears: Normal External Exam, Normal TMs Nose: Normal Inspection Throat/Mouth: Normal Inspection, Normal Oropharynx Head: Atraumatic. No: Facial Swelling Neck: Supple, Full Range of Motion Respiratory/Chest: No Respiratory Distress, Lungs Clear, Normal Breath Sounds. No: Rales, Rhonchi, Wheezing Cardiovascular: Regular Rate, Rhythm GI/Abdominal: Soft, Non-Tender Extremities: Normal Inspection. No: Pedal Edema, Leg Pain, Increased Warmth, Redness Neurological: Alert, Oriented, No Motor/Sensory Deficits Course - Vital Signs Last Recorded V/S: Last Vital Signs Temp 97.5 F 09/24/18 02:54 Pulse 77 09/24/18 02:54 Resp 20 09/24/18 02:54 BP 99/63 09/24/18 02:54 Pulse Ox 96 09/24/18 02:54 - Orders/Labs/Meds Meds: Medications Discontinued Medications Generic Name Dose Route Start Last Admin Trade Name Freq PRN Reason Stop Dose Admin Amoxicillin 500 mg 09/24/18 03:43 09/24/18 03:48 Amoxil PO 09/24/18 03:44 500 mg ONETIME ONE Administration - Re-Assessments/Exams Free Text/Narrative Re-Assessment/Exam: 09/25/18 11:44 CXR normal, sats are good, sinus rythm, no ecotpy. She and her are convinced she needs "amoxacillin to get over this, has worked well in the past " CXR, lungs are clear a this time, discharge instr. as documented. Departure - Departure Time of Disposition: 03:48 Disposition: Home, Self-Care 01 Condition: Fair Clinical Impression: Bronchitis - Discharge Information Prescriptions: Amoxicillin 500 mg PO Q8HR #20 capsule Instructions: Acute Bronchitis, Adult, [id number] Referrals: Tyrone Rivas MD [Primary Care Provider] - Forms: ED Department Discharge Additional Instructions: Vaporizer or humidifier as needed, amoxicillin 500 mg 3 times daily for 1 week or until gone, drinke plenty of water to maintain hydration, Phenergan with codeine cough medication if needed for severe cough. Follow up with Dr Rivas if not much better within 5-7 days as expected.
--- NOTE | 2018-09-24 07:01 | CR ---
Chest: Frontal view of the chest was obtained utilizing portable technique. Comparison: Prior chest x-ray of 08/01/18. Heart size at the upper limits of normal. Tortuous thoracic aorta is seen. Lungs are clear with no acute parenchymal change. Old healed left mid rib fracture is incidentally noted. Impression: 1. Incidental findings. Nothing acute is seen. Diagnostic code #2
== END 2018-09-24 04:00 | disposition home or self-care (01) ==
LOC: JD.ED 02:45
DX: J40 Bronchitis, not specified as acute or chronic (principal); I10 Essential (primary) hypertension; J44.9 Chronic obstructive pulmonary disease, unspecified; E11.9 Type 2 diabetes mellitus without complications; F17.210 Nicotine dependence, cigarettes, uncomplicated; Z88.8 Allergy status to other drugs, medicaments and biological substances; Z91.030 Bee allergy status; Z79.899 Other long term (current) drug therapy
CPT/HCPCS: 71045; 99283; A9270

== ENCOUNTER → 2019-05-21 | Day surgery (SDC) | payer MEDICARE, OTHER, SELFPAY ==
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
[~2019-05-21] MED LIST changes: +Albuterol 0.083% 2.5 MG/3 ML Neb Soln NEB PRN; +Bupivacaine 0.25% 10 ML SDV ONE; -Bupivacaine 0.5%/EPINEPHrine 1:200,000 50 ML MDV ONE; +HYDROmorphone 0.5 MG/0.5 ML Syringe IVPUSH PRN; +Lactated Ringers 1,000 ML ONE; -Lidocaine 1% 0 ML ONE; +Lidocaine 1% 6 ML ONE; -Lidocaine 1% with EPINEPHrine 1:100,000 20 ML MDV ONE; +Ondansetron 4 MG/2 ML SDV IVPUSH PRN; +Phenylephrine 1 MG in Sodium Chloride 0.9% 10 ML IV SCH; +Phenylephrine/Normal Saline 100 MCG/ML 10 ML Syringe ONE; +ceFAZolin 1 GM Vial ONE
--- NOTE | 2019-05-21 07:48 | PCM48HPAN ---
Post Anesthesia Note - EVALUATION WITHIN 48HRS OF ANESTHETIC Vital Signs in Normal Range: Yes Patient Participated in Evaluation: Yes Respiratory Function Stable: Yes Airway Patent: Yes Cardiovascular Function Stable: Yes Hydration Status Stable: Yes Pain Control Satisfactory: Yes Nausea and Vomiting Control Satisfactory: Yes Mental Status Recovered: Yes Vital Signs: Last Vital Signs Temp 98.5f 05/21/19 0745 Pulse 59 05/21/19 0745 Resp 10 05/21/1945 BP 93/53 05/21/1945 Pulse Ox 96 05/21/1945
--- NOTE | 2019-05-21 08:44 | CR ---
Left ankle: Single fluoroscopic spot view is obtained of the left ankle utilizing C-arm device. Comparison: Prior CT left ankle exam of 07/03/18. Plate and screws are identified within the distal fibula. Single screw crosses into the tibia. Lucency is seen around this tibial screw. Previous fractures show healing. Ankle mortise is symmetric. Fluoroscopy time given as 5.1 seconds. Impression: 1. Previous ankle fracture show healing. 2. Orthopedic hardware as noted above. Diagnostic code #2
[2019-05-21 09:08] VITALS: BP 93/57; PULSE 61
--- NOTE | 2019-05-26 14:17 | PCM.OPNOTE ---
- General Post-Op/Procedure Note Date of Surgery/Procedure: 05/21/19 Operative Procedure(s): left deep medial ankle hardware removal Pre Op Diagnosis: painful hardware left ankle Post-Op Diagnosis: Same Anesthesia Technique: Local, MAC Primary Surgeon: Gomez Renteria Anesthesia Provider: Hedy Durham Building Supervisor: Jalyn Berg in mLs: 5 Complications: None Condition: Good
--- NOTE | 2019-05-26 16:27 | OR ---
DATE OF OPERATION: 05/21/2019 SURGEON: Gomez Renteria MD OPERATION PERFORMED: Left medial ankle hardware removal. PREOPERATIVE DIAGNOSIS: Painful hardware, left ankle. POSTOPERATIVE DIAGNOSIS: Painful hardware, left ankle. ANESTHESIA: Local MAC. ANESTHESIA PROVIDER: Hedy Durham CRNA. BILLPOSTER: Jalyn Berg PA-C. ESTIMATED BLOOD LOSS: Less than 5 mL. COMPLICATIONS: None. CONDITION: Stable. DESCRIPTION OF PROCEDURE: The patient was identified in the preop holding area. Proper site was marked and identified by the surgeon. The patient was taken back to the operating theater where after adequate anesthesia, the patient's left lower extremity was sterilely prepped and draped in the usual sterile fashion. OR time-out was performed. The patient received 2 g IV Ancef at this time. A small incision was made over the medial deep hardware. After 1% lidocaine without epinephrine and 0.25% Marcaine without epinephrine used to anesthetize the incisional site. At this time, under direct C-arm fluoroscopy, the both K-wires on the medial side were removed. Adequate saline was irrigated through the wound. 2-0 nylon sutures were used for closure of the skin. The patient tolerated this procedure well and sent to PACU in stable condition. YRN /[id number]
== END | disposition home or self-care (01) ==
LOC: JD.SDS 06:16
PROVIDERS: ATTEND Orthopaedic Surgery
DX: T84.84XA Pain due to internal orthopedic prosthetic devices, implants and grafts, initial encounter (principal); S82.852D Displaced trimalleolar fracture of left lower leg, subsequent encounter for closed fracture with routine healing; I10 Essential (primary) hypertension; E11.9 Type 2 diabetes mellitus without complications; E78.2 Mixed hyperlipidemia; J44.9 Chronic obstructive pulmonary disease, unspecified; K21.9 Gastro-esophageal reflux disease without esophagitis; F41.9 Anxiety disorder, unspecified; F32.9 Major depressive disorder, single episode, unspecified; F17.210 Nicotine dependence, cigarettes, uncomplicated; M41.9 Scoliosis, unspecified; X58.XXXD Exposure to other specified factors, subsequent encounter; Z88.6 Allergy status to analgesic agent; Z91.018 Allergy to other foods; Z91.011 Allergy to milk products; Z88.1 Allergy status to other antibiotic agents; Z91.030 Bee allergy status; Z91.09 Other allergy status, other than to drugs and biological substances; Z79.02 Long term (current) use of antithrombotics/antiplatelets; Z79.84 Long term (current) use of oral hypoglycemic drugs; Z79.51 Long term (current) use of inhaled steroids; Z79.899 Other long term (current) drug therapy
CPT/HCPCS: 20680; 76000; 82962; 87641; 94640; J0690; J1170; J2001; J2250; J2370; J2405; J2704; J3010; J3490; J7120; 01480

== ENCOUNTER 2019-05-25 15:36 | Emergency (ER) | payer MEDICARE ==
--- NOTE | 2019-05-25 15:58 | EDM.PDOC ---
ED HPI GENERAL MEDICAL PROBLEM - General Chief Complaint: Respiratory Problem Stated Complaint: COUGH AND NO APPETITE Time Seen by Provider: 05/25/19 15:57 Source of Information: Reports: Patient, RN, RN Notes Reviewed, Significant Other History Limitations: Reports: No Limitations - History of Present Illness INITIAL COMMENTS - FREE TEXT/NARRATIVE: Patient is a 68-year-old female who presents to the ED with a "bad cold". She reports she's had sinus issues and a sore throat accompanied by cough which has been nonproductive. She also reports she's had occasional chest pain when she coughs. She reports this started in full force on Saturday but she has had some mild symptoms prior to that. Loss of appetite. Denies any nausea, vomiting, fevers. She has had some ear pain. She reports her voice comes and goes. She has tried Robitussin but that has not helped. She also does have a little bit of a headache. Her significant other reports she has not been eating or drinking much. She reports she lives in an apartment complex that has had multiple sick individuals. She reports she smokes less than 8 cigarettes per day. She states she underwent surgery on in which Dr. Tess obando removed a few pins from her left foot. She does have a walking boot on her left foot. She carries a history of "racing heart", diabetes which she describes as "mild" , osteoporosis. She denies any lung problems. Her PCP is Dr. Rivas. Throat Pain Score (Numeric/FACES): 8 - Related Data Allergies Allergy/AdvReac Type Severity Reaction Status Date / Time hornet venom Allergy Cannot Verified 05/20/19 13:53 Remember ketoprofen Allergy Nausea Verified 05/20/19 13:53 lactose Allergy bloating Verified 05/20/19 13:53 Pork/Porcine Containing Allergy bloating Verified 05/20/19 13:53 Products venom-honey bee Allergy Cannot Verified 05/20/19 13:53 [bee venom (honey bee)] Remember doxycycline AdvReac Headache Verified 05/20/19 13:53 ibuprofen AdvReac Bleeding Verified 05/20/19 13:53 Home Meds: Home Meds Atenolol 50 tab PO DAILY 05/09/16 [History] Dicyclomine [Bentyl] 10 mg PO QID 05/09/16 [History] Furosemide 20 mg PO DAILY 05/09/16 [History] Glimepiride [Amaryl] 2 mg PO DAILY 05/09/16 [History] Loratadine [Claritin] 10 mg PO DAILY 05/09/16 [History] Omeprazole 40 mg PO DAILY 05/09/16 [History] Potassium Chloride 10 meq PO DAILY 05/09/16 [History] diazePAM [Diazepam] 10 mg PO QID PRN 05/09/16 [History] Albuterol [Proair HFA] 1 - 2 puff INH Q4H PRN 09/03/17 [History] EPINEPHrine [Epipen] 1 dose IM ONETIME PRN 09/03/17 [History] Acetaminophen/Butalbital/Caff [Fioricet 325-50-40 MG] 1 tab PO Q6H PRN 07/09/18 [History] Budesonide [Rhinocort Allergy] 1 spray NASBOTH BID 07/09/18 [History] atorvaSTATin [Lipitor] 10 mg PO DAILY 07/09/18 [History] oxyCODONE HCl/Acetaminophen [Percocet 5-325 mg Tablet] 1 - 2 each PO Q6H PRN # 20 tablet 07/10/18 [Rx] Albuterol/Ipratropium [DuoNeb 3.0-0.5 MG/3 ML] 3 ml NEB Q6HR #25 ampule [Rx] Amitriptyline [Elavil] 50 mg PO BEDTIME 05/20/19 [History] Clopidogrel Bisulfate [Plavix] 75 mg PO DAILY 05/20/19 [History] Fluticasone Propionate [Flonase] 1 dose NASBOTH BID 05/20/19 [History] Ibandronate Sodium [Boniva] 150 mg PO Q30D 05/20/19 [History] Amoxicillin 1,000 mg PO BID #40 tab 05/25/19 [Rx] Codeine/Promethazine [Phenergan with Codeine] 5 ml PO Q6HR PRN #300 ml 05/25/19 [Rx] Past Medical History HEENT History: Reports: Allergic Rhinitis, Cataract, Impaired Vision Other HEENT History: Wears glasses Cardiovascular History: Reports: Arrhythmia, CAD, High Cholesterol, Hypertension Respiratory History: Reports: COPD Other Respiratory History: coughing Gastrointestinal History: Reports: GERD, Hemorrhoids Other Gastrointestinal History: abdominal pain Genitourinary History: Reports: None TIMBER APPRAISER 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: Reports: Other TIMBER APPRAISER History: 3 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 Musculoskeletal History: Reports: Back Pain, Chronic, Fracture, Osteoarthritis, Osteoporosis, Other (See Below) Other Musculoskeletal History: fracture ankle currently in boot Neurological History: Reports: Concussion, Headaches, Chronic, TIA Psychiatric History: Reports: Anxiety, Depression, Other (See Below) Endocrine/Metabolic History: Reports: Diabetes, Type II Hematologic History: Reports: None Immunologic History: Reports: None Oncologic (Cancer) History: Reports: None Dermatologic History: Reports: Other (See Below) Other Dermatologic History: bug bite - Infectious Disease History Infectious Disease History: Reports: None - Past Surgical History Head Surgeries/Procedures: Reports: None HEENT Surgical History: Reports: Cataract Surgery, Tonsillectomy Cardiovascular Surgical History: Reports: None Respiratory Surgical History: Reports: None GI Surgical History: Reports: Appendectomy, Other (See Below) Other GI Surgeries/Procedures: prolapsed hemorrhoid surgery Female Surgical History: Reports: Hysterectomy 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 Oncologic Surgical History: Reports: None Dermatological Surgical History: Reports: None Social & Family History - Family History Family Medical History: Noncontributory - Tobacco Use Smoking Status *Q: Current Every Day Smoker Years of Tobacco use: 50 Packs/Tins Daily: 0.4 - Caffeine Use Caffeine Use: Reports: Coffee, Soda - Recreational Drug Use Recreational Drug Use: No - Living Situation & Occupation Living situation: Reports: , with Spouse Occupation: Retired ED ROS GENERAL - Review of Systems Review Of Systems: See Below Constitutional: Reports: Malaise, Weakness, Fatigue, Decreased Appetite. Denies : Fever, Chills HEENT: Reports: Ear Pain, Sinus Problem, Throat Pain. Denies: Ear Discharge, Eye Discharge, Eye Pain, Rhinitis, Vertigo, Vision Change Respiratory: Reports: Shortness of Breath, Pleuritic Chest Pain, Cough. Denies : Wheezing, Sputum Cardiovascular: Reports: No Symptoms. Denies: Chest Pain, Dyspnea on Exertion, Palpitations GI/Abdominal: Reports: No Symptoms. Denies: Abdominal Pain, Constipation, Diarrhea, Nausea, Vomiting : Reports: No Symptoms Musculoskeletal: Reports: Other (Generalized pain from accident several years ago ) Skin: Reports: No Symptoms Neurological: Reports: No Symptoms ED EXAM, GENERAL - Physical Exam Exam: See Below Exam Limited By: No Limitations General Appearance: Alert, WD/WN, No Apparent Distress Eye Exam: Bilateral Eye: EOMI, PERRL Ears: Hearing Grossly Normal Ear Exam: Bilateral Ear: Auricle Normal, Canal Normal, Erythema, TM Red Nose: Normal Inspection, Normal Mucosa Throat/Mouth: Normal Lips, Normal Teeth, Normal Oropharynx, Normal Voice, No Airway Compromise, Other (dry mucous membranes) Head: Atraumatic, Normocephalic Neck: Normal Inspection, Supple, Non-Tender, Full Range of Motion Respiratory/Chest: No Respiratory Distress, Lungs Clear, No Accessory Muscle Use , Chest Non-Tender, Decreased Breath Sounds. No: Rhonchi, Wheezing Cardiovascular: Normal Peripheral Pulses, Regular Rate, Rhythm, No Edema, No Gallop, No JVD, No Murmur, No Rub Peripheral Pulses: 2+: Radial (L), Radial (R), Dorsalis Pedis (R) Extremities: Normal Inspection, Normal Range of Motion, Non-Tender, No Pedal Edema, Normal Capillary Refill, Other (Walking boot on left foot ) Skin Exam: Warm, Dry, Intact Course - Vital Signs Last Recorded V/S: Last Vital Signs Temp 97.3 F 05/25/19 15:57 Pulse 60 05/25/19 15:57 Resp 20 05/25/19 15:57 BP 127/73 05/25/19 15:57 Pulse Ox 95 05/25/19 15:57 - Orders/Labs/Meds Orders: Active Orders 24 hr Category Date Time Status Peripheral IV Care [RC] . DIRECTED Care 05/25/19 16:31 Active Sodium Chloride 0.9% [Normal Saline] 1,000 ml Med 05/25/19 16:45 Active IV ASDIRECTED Sodium Chloride 0.9% [Saline Flush] Med 05/25/19 16:31 Active 10 ml FLUSH ASDIRECTED PRN Peripheral IV Insertion Adult [OM.PC] Stat Oth 05/25/19 16:31 Ordered Medication Orders Sodium Chloride (Normal Saline) 1,000 mls @ 150 mls/hr IV ASDIRECTED FRANNIE Last Admin: 05/25/19 16:49 Dose: 150 mls/hr Sodium Chloride (Saline Flush) 10 ml FLUSH ASDIRECTED PRN PRN Reason: Keep Vein Open Last Admin: 05/25/19 16:50 Dose: 10 ml Labs: Laboratory Tests 05/25/19 05/25/19 Range/Units 16:56 16:56 WBC 7.45 (3.98-10.04) K/mm3 RBC 3.78 L (3.98-5.22) M/mm3 Hgb 11.9 (11.2-15.7) gm/dl Hct 36.7 (34.1-44.9) % MCV 97.1 H D (79.4-94.8) fl MCH 31.5 (25.6-32.2) pg MCHC 32.4 (32.2-35.5) g/dl RDW Std Deviation 49.6 H (36.4-46.3) fL Plt Count 228 D (182-369) K/mm3 MPV 9.6 (9.4-12.3) fl Neutrophils % (Manual) 64 H (40-60) % Band Neutrophils % 3 (0-10) % Lymphocytes % (Manual) 25 (20-40) % Atypical Lymphs % 0 % Monocytes % (Manual) 4 (2-10) % Eosinophils % (Manual) 2 (0.7-5.8) % Basophils % (Manual) 2 H (0.1-1.2) Platelet Estimate Adequate RBC Morph Comment Normal Sodium 143 (136-145) mEq/L Potassium 3.3 L (3.5-5.1) mEq/L Chloride 107 (98-107) mEq/L Carbon Dioxide 28 (21-32) mEq/L Anion Gap 11.3 (5-15) BUN 4 L (7-18) mg/dL Creatinine 0.6 (0.55-1.02) mg/dL Est Cr Clr Drug Dosing 82.47 mL/min Estimated GFR (MDRD) > 60 (>60) mL/min BUN/Creatinine Ratio 6.7 L (14-18) Glucose 97 (80-115) mg/dL Calcium 8.5 (8.5-10.1) mg/dL Total Bilirubin 0.3 (0.2-1.0) mg/dL AST 11 L (15-37) U/L ALT 12 L (14-59) U/L Alkaline Phosphatase 62 (46-116) U/L Total Protein 6.2 L (6.4-8.2) g/dl Albumin 2.9 L (3.4-5.0) g/dl Globulin 3.3 gm/dL Albumin/Globulin Ratio 0.9 L (1-2) Mycoplasma pneumon IgM Negative (NEGATIVE) Meds: Medications Generic Name Dose Route Start Last Admin Trade Name Freq PRN Reason Stop Dose Admin Sodium Chloride 1,000 mls @ 150 mls/hr 05/25/19 16:45 05/25/19 16:49 Normal Saline IV 150 mls/hr ASDIRECTED FRANNIE Administration Sodium Chloride 10 ml 05/25/19 16:31 05/25/19 16:50 Saline Flush FLUSH 10 ml ASDIRECTED PRN Administration Keep Vein Open Discontinued Medications Generic Name Dose Route Start Last Admin Trade Name Freq PRN Reason Stop Dose Admin Potassium Chloride 40 meq 05/25/19 18:04 05/25/19 19:03 Klor-Con M20 PO 05/25/19 18:05 40 meq ONETIME ONE Administration - Re-Assessments/Exams Free Text/Narrative Re-Assessment/Exam: initial plan of care will include 2 view chest x-ray, influenza swab, CMP, CBC, mycoplasma. Will also order IV fluids at 150 mils an hour for now. 05/25/19 16:46 Labs have mostly returned. Influenza is negative. CBC is otherwise grossly normal. Potassium is low at 3.3. We'll give potassium pill. Mycoplasma still pending. Chest x-ray interpreted by Dr. Wilson, radiologist, as "1. Interstitial change believed to be chronic. Emphysematous changes noted. 2. Focal parenchyma densities within the right upper and left lower lung are These are most likely due to focal areas of scarring although given the emphysematous change, recommend noncontrast chest CT to completely exclude parenchymal nodule or mass." Will order chest CT. 05/25/19 18:11 Mycoplasma returns negative. chest CT was obtained and interpreted by Dr. Wilson as "1. Multiple findings as noted above. Nothing acute is seen. Pulmonary nodules that are noted on recent chest x-ray are felt to be incidental as described above." 05/25/19 19:10 Departure - Departure Time of Disposition: 19:12 Disposition: Home, Self-Care 01 Clinical Impression: Bronchitis Otitis media Qualifiers: Otitis media type: unspecified Chronicity: acute Qualified Code(s): H66.90 - Otitis media, unspecified, unspecified ear - Discharge Information *PRESCRIPTION DRUG MONITORING PROGRAM REVIEWED*: No *COPY OF PRESCRIPTION DRUG MONITORING REPORT IN PATIENT SANDOR: No Prescriptions: Codeine/Promethazine [Phenergan with Codeine] 5 ml PO Q6HR PRN #300 ml PRN Reason: Cough Amoxicillin 1,000 mg PO BID #40 tab Instructions: Otitis Media, Adult Referrals: Tyrone Rivas MD [Primary Care Provider] - Forms: ED Department Discharge Additional Instructions: you were seen today in the emergency room for cold-like symptoms. You reported ear pain and a cough. Your chest x-ray was inconclusive so a CT scan was ordered which showed nothing acute. Your labs looked good. Your ears were noted to be red and inflamed. You noted ear pain. Your prescribed the antibiotic amoxicillin 1000 mg twice a day for 10 days. He also reported a significant cough. Your prescribed Phenergan With Codeine for this cough. Be cautious as this medication can make you sleepy. drink plenty of fluids. Should symptoms return or worsen contact your primary care provider or return to the emergency room. - My Orders Last 24 Hours: My Active Orders 05/25/19 16:31 Peripheral IV Care [RC] . DIRECTED Sodium Chloride 0.9% [Saline Flush] 10 ml FLUSH ASDIRECTED PRN Peripheral IV Insertion Adult [OM.PC] Stat 05/25/19 16:45 Sodium Chloride 0.9% [Normal Saline] 1,000 ml IV ASDIRECTED - Assessment/Plan Last 24 Hours: My Active Orders 05/25/19 16:31 Peripheral IV Care [RC] . DIRECTED Sodium Chloride 0.9% [Saline Flush] 10 ml FLUSH ASDIRECTED PRN Peripheral IV Insertion Adult [OM.PC] Stat 05/25/19 16:45 Sodium Chloride 0.9% [Normal Saline] 1,000 ml IV ASDIRECTED
[2019-05-25 16:01] VITALS: BP 127/73; PULSE 60
[2019-05-25] MEDS ORDERED: Sodium Chloride 0.9% 10 ML Syringe FLUSH PRN (16:31)
[2019-05-25] MEDS ORDERED: Sodium Chloride 0.9% 1,000 ML IV SCH (16:45)
--- NOTE | 2019-05-25 17:19 | CR ---
Chest: 2 views of the chest were obtained. Comparison: Prior chest x-ray of 01/27/19. Heart is felt to be slightly enlarged. Tortuous thoracic aorta is seen. Interstitial changes are noted which are felt to be fairly stable from most recent study. Focal densities are is noted within the right upper and left lower lung. No definite acute-appearing parenchymal change is seen. Stable compression deformity within the midthoracic spine. Lungs are hyperinflated compatible with emphysematous change. Impression: 1. Interstitial change believed to be chronic. Emphysematous change is noted. 2. Focal parenchymal densities within the right upper and left lower lung are seen. These are most likely due to focal areas of scarring although given the emphysematous change, recommend noncontrast chest CT to completely exclude parenchymal nodule or mass. Diagnostic code #9
[2019-05-25] MEDS ORDERED: Potassium Chloride 20 MEQ Tab.ER PO ONE (18:04)
--- NOTE | 2019-05-25 18:47 | CT ---
CT chest Technique: Multiple axial sections were obtained through the chest. Intravenous contrast was not utilized. Comparison: Previous chest x-ray performed earlier on same day (4:56 PM) Findings: Basilar interstitial change is noted having appearance of atelectasis and slight fibrosis. Focal nodular density is noted within the left base. This is associated with linear scar and most likely represents more nodular area of scarring rather than an actual pulmonary nodule as suggested on chest x-ray. Questioned nodule within the right upper lung on chest x-ray does not correspond to an actual parenchymal nodule on the chest CT and felt to correlate to an old rib fracture. No acute appearing parenchymal change is seen. Aorta shows no aneurysm. Mild coronary artery calcification is seen. No pericardial thickening is seen. Several old healed right sided rib fractures are noted. No acute osseous abnormality is appreciated. Compression deformity within the midthoracic spine is seen which appears old. Minimal deformity is seen within the manubrium which is believed to represent an old healed fracture. Impression: 1. Multiple findings as noted above. Nothing acute is seen. Pulmonary nodules that are noted on recent chest x-ray are felt to be incidental as described above. Diagnostic code #2
== END 2019-05-25 19:34 | disposition home or self-care (01) ==
LOC: JD.ED 15:36
DX: J40 Bronchitis, not specified as acute or chronic (principal); H66.90 Otitis media, unspecified, unspecified ear; F17.210 Nicotine dependence, cigarettes, uncomplicated; I25.10 Atherosclerotic heart disease of native coronary artery without angina pectoris; E78.00 Pure hypercholesterolemia, unspecified; I10 Essential (primary) hypertension; J44.9 Chronic obstructive pulmonary disease, unspecified; K21.9 Gastro-esophageal reflux disease without esophagitis; E11.9 Type 2 diabetes mellitus without complications; F41.9 Anxiety disorder, unspecified; F32.9 Major depressive disorder, single episode, unspecified; M81.0 Age-related osteoporosis without current pathological fracture; Z88.6 Allergy status to analgesic agent; Z91.030 Bee allergy status; Z91.011 Allergy to milk products; Z91.018 Allergy to other foods; Z88.1 Allergy status to other antibiotic agents; Z79.899 Other long term (current) drug therapy; Z79.84 Long term (current) use of oral hypoglycemic drugs; Z79.51 Long term (current) use of inhaled steroids; Z79.02 Long term (current) use of antithrombotics/antiplatelets
CPT/HCPCS: 36415; 71046; 71046-26; 71250; 71250-26; 80053; 85007; 85027; 86738; 87804; 96360; 96361; 99283; 99284-25; A9270-GY; J7040

== ENCOUNTER 2019-06-06 08:27 | Emergency (ER) | payer MEDICARE, OTHER ==
[2019-06-06 08:42] VITALS: BP 112/79; PULSE 68
[2019-06-06] MEDS ORDERED: Sodium Chloride 0.9% 10 ML Syringe FLUSH PRN (08:56)
[2019-06-06] MEDS ORDERED: methylPREDNISolone Sodium Succinate 125 MG/2 ML SDV IVPUSH ONE (08:57)
[2019-06-06] MEDS ORDERED: Albuterol/Ipratropium 3.0-0.5 MG/3 ML Neb Soln NEB ONE (08:58)
--- NOTE | 2019-06-06 09:34 | EDM.PDOC ---
ED HPI GENERAL MEDICAL PROBLEM - General Chief Complaint: Respiratory Problem Stated Complaint: PAIN IN LUNGS Time Seen by Provider: 06/06/19 08:39 Source of Information: Reports: Patient, Family History Limitations: Reports: No Limitations - History of Present Illness INITIAL COMMENTS - FREE TEXT/NARRATIVE: The patient presents with a dry cough and shortness of breath. This has been going on for a couple of weeks. She was seen here about 4 days ago and she had a CXR and CT of her chest. She had no pneumonia but she was diagnosed with bronchitis. She was put on amoxicillin for a week. She started to get better but then she got worse. She has a dry cough. She has laryngitis. She has no fever now. She has shortness of breath and some tightness in her chest. She does still smoke. She has no abdominal pain, nausea or vomiting. Onset: Gradual Duration: Week(s): (2) Location: Reports: Chest Quality: Reports: Other (Tightness) Severity: Mild Improves with: Reports: None Worsens with: Reports: None Associated Symptoms: Reports: Cough, Shortness of Breath. Denies: Chest Pain, Fever/Chills, Headaches, Nausea/Vomiting Chest Pain Score (Numeric/FACES): 9 - Related Data Allergies Allergy/AdvReac Type Severity Reaction Status Date / Time hornet venom Allergy Cannot Verified 06/06/19 08:42 Remember ketoprofen Allergy Nausea Verified 06/06/19 08:42 lactose Allergy bloating Verified 06/06/19 08:42 Pork/Porcine Containing Allergy bloating Verified 06/06/19 08:42 Products venom-honey bee Allergy Cannot Verified 06/06/19 08:42 [bee venom (honey bee)] Remember doxycycline AdvReac Headache Verified 06/06/19 08:42 ibuprofen AdvReac Bleeding Verified 06/06/19 08:42 Home Meds: Home Meds Atenolol 50 tab PO DAILY 05/09/16 [History] Dicyclomine [Bentyl] 10 mg PO QID 05/09/16 [History] Furosemide 20 mg PO DAILY 05/09/16 [History] Glimepiride [Amaryl] 2 mg PO DAILY 05/09/16 [History] Loratadine [Claritin] 10 mg PO DAILY 05/09/16 [History] Omeprazole 40 mg PO DAILY 05/09/16 [History] Potassium Chloride 10 meq PO DAILY 10/19/16 [History] diazePAM [Diazepam] 10 mg PO QID PRN 05/09/16 [History] Albuterol [Proair HFA] 1 - 2 puff INH Q4H PRN 09/03/17 [History] EPINEPHrine [Epipen] 1 dose IM ONETIME PRN 09/03/17 [History] Acetaminophen/Butalbital/Caff [Fioricet 325-50-40 MG] 1 tab PO Q6H PRN 07/09/18 [History] Budesonide [Rhinocort Allergy] 1 spray NASBOTH BID 07/09/18 [History] atorvaSTATin [Lipitor] 10 mg PO DAILY 07/09/18 [History] oxyCODONE HCl/Acetaminophen [Percocet 5-325 mg Tablet] 1 - 2 each PO Q6H PRN # 20 tablet 07/10/18 [Rx] Albuterol/Ipratropium [DuoNeb 3.0-0.5 MG/3 ML] 3 ml NEB Q6HR #25 ampule [Rx] Amitriptyline [Elavil] 50 mg PO BEDTIME 05/20/19 [History] Clopidogrel Bisulfate [Plavix] 75 mg PO DAILY 05/20/19 [History] Fluticasone Propionate [Flonase] 1 dose NASBOTH BID 05/20/19 [History] Ibandronate Sodium [Boniva] 150 mg PO Q30D 05/20/19 [History] Amoxicillin 1,000 mg PO BID #40 tab 05/25/19 [Rx] Codeine/Promethazine [Phenergan with Codeine] 5 ml PO Q6HR PRN #300 ml 05/25/19 [Rx] Amoxicillin 1,000 mg PO BID #40 tab 06/06/19 [Rx] Codeine/Promethazine [Phenergan with Codeine] 5 - 10 ml PO Q6HR PRN #300 ml [Rx] Past Medical History HEENT History: Reports: Allergic Rhinitis, Cataract, Impaired Vision Other HEENT History: Wears glasses Cardiovascular History: Reports: Arrhythmia, CAD, High Cholesterol, Hypertension Respiratory History: Reports: COPD Other Respiratory History: coughing Gastrointestinal History: Reports: GERD, Hemorrhoids Other Gastrointestinal History: abdominal pain Genitourinary History: Reports: None 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: 3 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 Musculoskeletal History: Reports: Back Pain, Chronic, Fracture, Osteoarthritis, Osteoporosis, Other (See Below) Other Musculoskeletal History: fracture ankle currently in boot Neurological History: Reports: Concussion, Headaches, Chronic, TIA Psychiatric History: Reports: Anxiety, Depression, Other (See Below) Endocrine/Metabolic History: Reports: Diabetes, Type II Hematologic History: Reports: None Immunologic History: Reports: None Oncologic (Cancer) History: Reports: None Dermatologic History: Reports: Other (See Below) Other Dermatologic History: bug bite - Infectious Disease History Infectious Disease History: Reports: None - Past Surgical History Head Surgeries/Procedures: Reports: None HEENT Surgical History: Reports: Cataract Surgery, Tonsillectomy Cardiovascular Surgical History: Reports: None Respiratory Surgical History: Reports: None GI Surgical History: Reports: Appendectomy, Other (See Below) Other GI Surgeries/Procedures: prolapsed hemorrhoid surgery Female Surgical History: Reports: Hysterectomy 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 Oncologic Surgical History: Reports: None Dermatological Surgical History: Reports: None Social & Family History - Family History Family Medical History: Noncontributory - Tobacco Use Smoking Status *Q: Current Every Day Smoker Years of Tobacco use: 50 Packs/Tins Daily: 0.4 - Caffeine Use Caffeine Use: Reports: Coffee, Soda - Recreational Drug Use Recreational Drug Use: No - Living Situation & Occupation Living situation: Reports: , with Spouse Occupation: Retired ED ROS GENERAL - Review of Systems Review Of Systems: See Below Constitutional: Reports: No Symptoms HEENT: Reports: No Symptoms Respiratory: Reports: Shortness of Breath, Cough Cardiovascular: Reports: Chest Pain Endocrine: Reports: No Symptoms GI/Abdominal: Reports: No Symptoms : Reports: No Symptoms Musculoskeletal: Reports: No Symptoms ED EXAM, GENERAL - Physical Exam Exam: See Below Exam Limited By: No Limitations General Appearance: Alert, No Apparent Distress Ears: Normal External Exam Nose: Normal Inspection Head: Atraumatic, Normocephalic Neck: Normal Inspection Respiratory/Chest: No Respiratory Distress, Decreased Breath Sounds Cardiovascular: Regular Rate, Rhythm, No Edema, No Murmur GI/Abdominal: Soft, Non-Tender, No Organomegaly, No Mass Back Exam: Normal Inspection Course - Vital Signs Last Recorded V/S: Last Vital Signs Temp 97.7 F 06/06/19 08:39 Pulse 68 06/06/19 08:39 Resp 18 06/06/19 08:39 BP 112/79 06/06/19 08:39 Pulse Ox 98 06/06/19 08:58 - Orders/Labs/Meds Orders: Active Orders 24 hr Category Date Time Status Peripheral IV Care [RC] . DIRECTED Care 06/06/19 08:56 Active RT Aerosol Therapy [RC] ASDIRECTED Care 06/06/19 08:58 Active CXR [Chest 2V] [CR] Stat Exams 06/06/19 08:57 Taken Sodium Chloride 0.9% [Saline Flush] Med 06/06/19 08:56 Active 10 ml FLUSH ASDIRECTED PRN Peripheral IV Insertion Adult [OM.PC] Routine Oth 06/06/19 08:56 Ordered Medication Orders Sodium Chloride (Saline Flush) 10 ml FLUSH ASDIRECTED PRN PRN Reason: Keep Vein Open Last Admin: 06/06/19 09:17 Dose: 10 ml Labs: Laboratory Tests 06/06/19 06/06/19 Range/Units 09:15 09:15 WBC 6.78 (3.98-10.04) K/mm3 RBC 3.87 L (3.98-5.22) M/mm3 Hgb 12.3 (11.2-15.7) gm/dl Hct 37.7 (34.1-44.9) % MCV 97.4 H (79.4-94.8) fl MCH 31.8 (25.6-32.2) pg MCHC 32.6 (32.2-35.5) g/dl RDW Std Deviation 49.2 H (36.4-46.3) fL Plt Count 298 (182-369) K/mm3 MPV 9.7 (9.4-12.3) fl Neut % (Auto) 40.0 (34.0-71.1) % Lymph % (Auto) 44.1 (19.3-51.7) % Saunders % (Auto) 8.7 (4.7-12.5) % Eos % (Auto) 6.6 H (0.7-5.8) Baso % (Auto) 0.6 (0.1-1.2) % Neut # (Auto) 2.71 (1.56-6.13) K/mm3 Lymph # (Auto) 2.99 (1.18-3.74) K/mm3 Saunders # (Auto) 0.59 H (0.24-0.36) K/mm3 Eos # (Auto) 0.45 H (0.04-0.36) K/mm3 Baso # (Auto) 0.04 (0.01-0.08) K/mm3 C-Reactive Protein < 0.2 (<1.0) mg/dL Meds: Medications Generic Name Dose Route Start Last Admin Trade Name Freq PRN Reason Stop Dose Admin Sodium Chloride 10 ml 06/06/19 08:56 06/06/19 09:17 Saline Flush FLUSH 10 ml ASDIRECTED PRN Administration Keep Vein Open Discontinued Medications Generic Name Dose Route Start Last Admin Trade Name Freq PRN Reason Stop Dose Admin Albuterol/Ipratropium 3 ml 06/06/19 08:58 06/06/19 09:09 Duoneb 3.0-0.5 Mg/3 Ml NEB 06/06/19 08:59 3 ml ONETIME ONE Administration Methylprednisolone Sodium Succinate 125 mg 06/06/19 08:57 06/06/19 09:17 Solu-Medrol IVPUSH 06/06/19 08:58 125 mg ONETIME ONE Administration - Re-Assessments/Exams Free Text/Narrative Re-Assessment/Exam: 06/06/19 09:33 I ordered an IV saline lock, solu-medrol 125mg IV, labs, CXR and duo-neb. 06/06/19 10:09 Her CXR shows no changes from prior. He CBC and CRP look good. I will discharge her home with more cough medicine and a longer course of antibiotics. Departure - Departure Time of Disposition: 10:15 Disposition: Home, Self-Care 01 Condition: Good Clinical Impression: Laryngitis Acute bronchitis Qualifiers: Bronchitis organism: unspecified organism Qualified Code(s): J20.9 - Acute bronchitis, unspecified - Discharge Information *PRESCRIPTION DRUG MONITORING PROGRAM REVIEWED*: No *COPY OF PRESCRIPTION DRUG MONITORING REPORT IN PATIENT SANDOR: No Prescriptions: Codeine/Promethazine [Phenergan with Codeine] 5 - 10 ml PO Q6HR PRN #300 ml PRN Reason: Cough Amoxicillin 1,000 mg PO BID #40 tab Referrals: Tyrone Rivas MD [Primary Care Provider] - 1 Week Forms: ED Department Discharge Additional Instructions: Take the amoxicillin 2 pills 2 times per day for 10 days. Take the phenergan with codeine every 6 hours as needed for cough. Try to take a probiotic such as activia to help avoid diarrhea. Please return if you are worse. - My Orders Last 24 Hours: My Active Orders 06/06/19 08:56 Peripheral IV Care [RC] . DIRECTED Sodium Chloride 0.9% [Saline Flush] 10 ml FLUSH ASDIRECTED PRN Peripheral IV Insertion Adult [OM.PC] Routine 06/06/19 08:57 CXR [Chest 2V] [CR] Stat 06/06/19 08:58 RT Aerosol Therapy [RC] ASDIRECTED - Assessment/Plan Last 24 Hours: My Active Orders 06/06/19 08:56 Peripheral IV Care [RC] . DIRECTED Sodium Chloride 0.9% [Saline Flush] 10 ml FLUSH ASDIRECTED PRN Peripheral IV Insertion Adult [OM.PC] Routine 06/06/19 08:57 CXR [Chest 2V] [CR] Stat 06/06/19 08:58 RT Aerosol Therapy [RC] ASDIRECTED
--- NOTE | 2019-06-06 10:30 | CR ---
Chest: Two views of the chest were obtained. Comparison: Prior chest x-ray of 05/25/19. Heart size and mediastinum are within normal limits. Lungs are hyperinflated compatible with emphysematous change. No definite acute parenchymal process is appreciated. Scoliosis is noted within the spine with compression deformity also seen within the mid thoracic spine which is old. Impression: 1. Probable emphysematous change. 2. Other findings as noted above. 3. Nothing acute is definitely appreciated. Diagnostic code #2
== END 2019-06-06 10:28 | disposition home or self-care (01) ==
LOC: JD.ED 08:27
DX: J04.0 Acute laryngitis (principal); J20.9 Acute bronchitis, unspecified; I10 Essential (primary) hypertension; K21.9 Gastro-esophageal reflux disease without esophagitis; J44.9 Chronic obstructive pulmonary disease, unspecified; E78.00 Pure hypercholesterolemia, unspecified; I25.10 Atherosclerotic heart disease of native coronary artery without angina pectoris; E11.9 Type 2 diabetes mellitus without complications; F17.210 Nicotine dependence, cigarettes, uncomplicated; Z88.6 Allergy status to analgesic agent; Z88.1 Allergy status to other antibiotic agents; Z91.030 Bee allergy status; Z91.038 Other insect allergy status; Z91.011 Allergy to milk products; Z91.018 Allergy to other foods; Z79.899 Other long term (current) drug therapy; Z79.51 Long term (current) use of inhaled steroids; Z79.02 Long term (current) use of antithrombotics/antiplatelets
CPT/HCPCS: 36415; 71046; 85025; 86140; 94640; 96374; 99285; J2930; 99283; J7620-GY

== ENCOUNTER 2019-09-17 13:12 | Emergency (ER) | payer MEDICARE, OTHER, SELFPAY ==
[2019-09-17 14:21] VITALS: BP 92/64; PULSE 58
--- NOTE | 2019-09-17 15:25 | EDM.PDOC ---
<Valentine Badillo - Last Filed: 09/17/19 15:14> ED HPI GENERAL MEDICAL PROBLEM - General Chief Complaint: Respiratory Problem Stated Complaint: SINUS/LUNG COMPLAINT/SORE THROAT Time Seen by Provider: 09/17/19 14:21 Source of Information: Reports: Patient History Limitations: Reports: No Limitations - History of Present Illness INITIAL COMMENTS - FREE TEXT/NARRATIVE: Patient is a 69-year-old female who presents to the ED for sore throat, dry cough, sinus congestion, headache, and bilateral earaches that have been ongoing for the past 10 days. She states she saw her PCP, Dr. Rivas, about ten days ago and he prescribed her a Z-Tha. During the five days of the Z-Tha course her symptoms started to resolve, but they did not completely resolve. She finished with the Z-Tha about 3-4 days ago and since then her symptoms have been increasing in severity. Denies chest pain and shortness of breath. - Related Data Allergies Allergy/AdvReac Type Severity Reaction Status Date / Time hornet venom Allergy Cannot Verified 09/17/19 14:12 Remember ketoprofen Allergy Nausea Verified 09/17/19 14:12 lactose Allergy bloating Verified 09/17/19 14:12 Pork/Porcine Containing Allergy bloating Verified 09/17/19 14:12 Products venom-honey bee Allergy Cannot Verified 09/17/19 14:12 [bee venom (honey bee)] Remember doxycycline AdvReac Headache Verified 09/17/19 14:12 ibuprofen AdvReac Bleeding Verified 09/17/19 14:12 Home Meds: Home Meds Dicyclomine [Bentyl] 10 mg PO QID 05/09/16 [History] Furosemide 20 mg PO DAILY 05/09/16 [History] Glimepiride [Amaryl] 2 mg PO DAILY 05/09/16 [History] Loratadine [Claritin] 10 mg PO DAILY 05/09/16 [History] Omeprazole 40 mg PO DAILY 05/09/16 [History] Potassium Chloride 10 meq PO DAILY 05/09/16 [History] atenoloL [Atenolol] 50 tab PO DAILY 05/09/16 [History] diazePAM [Diazepam] 10 mg PO QID PRN 05/09/16 [History] Albuterol [Proair HFA] 1 - 2 puff INH Q4H PRN 09/03/17 [History] EPINEPHrine [Epipen] 1 dose IM ONETIME PRN 09/03/17 [History] Acetaminophen/Butalbital/Caff [Fioricet 325-50-40 MG] 1 tab PO Q6H PRN 07/09/18 [History] Budesonide [Rhinocort Allergy] 1 spray NASBOTH BID 07/09/18 [History] atorvaSTATin [Lipitor] 10 mg PO DAILY 07/09/18 [History] oxyCODONE HCl/Acetaminophen [Percocet 5-325 mg Tablet] 1 - 2 each PO Q6H PRN # 20 tablet 07/10/18 [Rx] Albuterol/Ipratropium [DuoNeb 3.0-0.5 MG/3 ML] 3 ml NEB Q6HR #25 ampule [Rx] Amitriptyline [Elavil] 50 mg PO BEDTIME 05/20/19 [History] Clopidogrel Bisulfate [Plavix] 75 mg PO DAILY 05/20/19 [History] Fluticasone Propionate [Flonase] 1 dose NASBOTH BID 05/20/19 [History] Ibandronate Sodium [Boniva] 150 mg PO Q30D 05/20/19 [History] Amoxicillin 1,000 mg PO BID #40 tab 09/17/19 [Rx] Codeine/Promethazine [Phenergan with Codeine] 5 - 10 ml PO Q6HR PRN #300 ml [Rx] Past Medical History HEENT History: Reports: Allergic Rhinitis, Cataract, Impaired Vision Other HEENT History: Wears glasses Cardiovascular History: Reports: Arrhythmia, CAD, High Cholesterol, Hypertension Respiratory History: Reports: COPD Other Respiratory History: coughing Gastrointestinal History: Reports: GERD, Hemorrhoids Other Gastrointestinal History: abdominal pain Genitourinary History: Reports: None 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 Musculoskeletal History: Reports: Back Pain, Chronic, Fracture, Osteoarthritis, Osteoporosis, Other (See Below) Other Musculoskeletal History: fracture ankle currently in boot Neurological History: Reports: Concussion, Headaches, Chronic, TIA Psychiatric History: Reports: Anxiety, Depression, Other (See Below) Endocrine/Metabolic History: Reports: Diabetes, Type II Hematologic History: Reports: None Immunologic History: Reports: None Oncologic (Cancer) History: Reports: None Dermatologic History: Reports: Other (See Below) Other Dermatologic History: bug bite - Infectious Disease History Infectious Disease History: Reports: None - Past Surgical History Head Surgeries/Procedures: Reports: None HEENT Surgical History: Reports: Cataract Surgery, Tonsillectomy Cardiovascular Surgical History: Reports: None Respiratory Surgical History: Reports: None GI Surgical History: Reports: Appendectomy, Other (See Below) Other GI Surgeries/Procedures: prolapsed hemorrhoid surgery Female Surgical History: Reports: Hysterectomy 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 Oncologic Surgical History: Reports: None Dermatological Surgical History: Reports: None Social & Family History - Family History Family Medical History: Noncontributory - Tobacco Use Smoking Status *Q: Current Every Day Smoker Years of Tobacco use: 20 Packs/Tins Daily: 0.5 - Caffeine Use Caffeine Use: Reports: None - Recreational Drug Use Recreational Drug Use: No - Living Situation & Occupation Living situation: Reports: , with Spouse Occupation: Retired ED ROS GENERAL - Review of Systems Review Of Systems: See Below Constitutional: Reports: No Symptoms. Denies: Fever, Chills, Weakness, Decreased Appetite HEENT: Reports: Ear Pain, Sinus Problem, Throat Pain. Denies: Ear Discharge, Eye Pain, Vertigo, Vision Change Respiratory: Reports: Cough (non-productive). Denies: Shortness of Breath Cardiovascular: Reports: No Symptoms. Denies: Chest Pain, Edema, Lightheadedness, Syncope GI/Abdominal: Reports: No Symptoms. Denies: Abdominal Pain, Diarrhea, Nausea, Vomiting Musculoskeletal: Reports: Back Pain (chronic and unchanged). Denies: Neck Pain Skin: Reports: No Symptoms. Denies: Rash, Erythema Neurological: Reports: No Symptoms. Denies: Dizziness, Headache, Numbness, Syncope, Tingling Psychiatric: Reports: No Symptoms ED EXAM, GENERAL - Physical Exam Exam: See Below Exam Limited By: No Limitations General Appearance: Alert, WD/WN, No Apparent Distress Eye Exam: Bilateral Eye: Normal Inspection, PERRL Ears: Normal External Exam, Normal Canal, Hearing Grossly Normal, Normal TMs Nose: Normal Inspection, Normal Mucosa, No Blood Throat/Mouth: Normal Inspection, Normal Lips, Normal Teeth, Normal Gums, Normal Oropharynx, Normal Voice, No Airway Compromise Head: Atraumatic, Normocephalic, Sinus Tenderness (frontal and maxillary) Neck: Normal Inspection, Supple, Non-Tender, Full Range of Motion Respiratory/Chest: No Respiratory Distress, Lungs Clear, Normal Breath Sounds, No Accessory Muscle Use, Chest Non-Tender Cardiovascular: Normal Peripheral Pulses, Regular Rate, Rhythm, No Edema, No Gallop, No Murmur, No Rub GI/Abdominal: Normal Bowel Sounds, Soft, Non-Tender, No Organomegaly, No Distention, No Mass Back Exam: Normal Inspection, Full Range of Motion. No: Vertebral Tenderness Extremities: Normal Inspection, Normal Range of Motion, Non-Tender, Normal Capillary Refill, No Pedal Edema Neurological: Alert, Oriented, Normal Cognition, Normal Gait, No Motor/Sensory Deficits Psychiatric: Normal Affect, Normal Mood Skin Exam: Warm, Dry, Intact, Normal Color, No Rash Lymphatic: No Adenopathy Course - Vital Signs Last Recorded V/S: Last Vital Signs Temp 97.9 F 09/17/19 14:13 Pulse 58 L 09/17/19 14:13 Resp 16 09/17/19 14:13 BP 92/64 09/17/19 14:13 Pulse Ox 98 09/17/19 14:13 - Orders/Labs/Meds Orders: Active Orders 24 hr Category Date Time Status Chest 2V [CR] Stat Exams 09/17/19 14:41 Taken Departure - Departure Disposition: Home, Self-Care 01 Clinical Impression: Bronchitis - Discharge Information Prescriptions: Codeine/Promethazine [Phenergan with Codeine] 5 - 10 ml PO Q6HR PRN #300 ml PRN Reason: Cough Amoxicillin 1,000 mg PO BID #40 tab Instructions: Acute Bronchitis, Adult, [id number] Referrals: Tyrone Rivas MD [Primary Care Provider] - Forms: ED Department Discharge Additional Instructions: You have been evaluated in the ED today for your cold like symptoms, cough, sore throat. You have been diagnosed with Bronchitis. You were given a prescription for amoxicillin, please take 2 tabs 2 times daily for the next 10 days. You are also given a prescription for some cough medication, take as directed. Please increase your fluid intake. Get plenty of rest as well. You should feel better in a few days. If your symptoms are not better in one week's time recommend that you follow up in a clinic or your primary care provider. Our [facility] clinic number is [phone], the [place] clinic is [phone]. Any family practice provider would be able to provide you with the services. Please return to the ED if your symptoms change or worsen. Sepsis Event Note - Evaluation Sepsis Screening Result: No Definite Risk - Focused Exam Vital Signs: Vital Signs Temp Pulse Resp BP Pulse Ox 09/17/19 14:13 97.9 F 58 L 16 92/64 98 Date Exam was Performed: 09/17/19 Time Exam was Performed: 15:14 - My Orders Last 24 Hours: My Active Orders 09/17/19 14:41 Chest 2V [CR] Stat - Assessment/Plan Last 24 Hours: My Active Orders 09/17/19 14:41 Chest 2V [CR] Stat <Carmella Burks - Last Filed: 09/17/19 15:34> Course - Re-Assessments/Exams Free Text/Narrative Re-Assessment/Exam: 09/17/19 15:32 I have read and reviewed the student's HPI and examined the patient and agree with Rod Badillo NP student. Chest x-ray does not show any sign of pneumonia or focal consolidation, however patient is recounting similar symptoms as she did back in May when she was diagnosed with bronchitis. Since the amoxicillin did help her symptoms, I will provide her with a prescription for this and also some cough medication and discharge her home at this time. Departure - Departure Time of Disposition: 15:33 Condition: Fair - Discharge Information *PRESCRIPTION DRUG MONITORING PROGRAM REVIEWED*: No *COPY OF PRESCRIPTION DRUG MONITORING REPORT IN PATIENT SANDOR: No Sepsis Event Note - Focused Exam Date Exam was Performed: 09/17/19 Time Exam was Performed: 15:31
--- NOTE | 2019-09-18 08:37 | CR ---
Chest: Two views of the chest were obtained. Comparison: Prior chest x-ray of 06/06/19. Heart size is within normal limits for AP technique. Tortuous thoracic aorta is noted. Old healed right and left-sided rib fractures are noted. Lung markings are slightly increased which appear stable from prior exam. No acute parenchymal change is seen. Minimal linear scarring is seen within the lateral left costophrenic angle which is stable. Anterior wedge deformity seen within the mid thoracic spine which is stable. Impression: 1. Findings as noted above which are felt to be stable. 2. Nothing acute is definitely seen. Diagnostic code #2 This report was dictated in [place] Standard Time
== END 2019-09-17 15:45 | disposition home or self-care (01) ==
LOC: JD.ED 13:12
DX: J40 Bronchitis, not specified as acute or chronic (principal); I25.10 Atherosclerotic heart disease of native coronary artery without angina pectoris; E78.00 Pure hypercholesterolemia, unspecified; I10 Essential (primary) hypertension; J44.9 Chronic obstructive pulmonary disease, unspecified; K21.9 Gastro-esophageal reflux disease without esophagitis; F41.9 Anxiety disorder, unspecified; E11.9 Type 2 diabetes mellitus without complications; F32.9 Major depressive disorder, single episode, unspecified; Z86.73 Personal history of transient ischemic attack (TIA), and cerebral infarction without residual deficits; F17.210 Nicotine dependence, cigarettes, uncomplicated; Z79.84 Long term (current) use of oral hypoglycemic drugs; Z91.030 Bee allergy status; Z91.018 Allergy to other foods; Z79.899 Other long term (current) drug therapy
CPT/HCPCS: 71046; 71046-26; 99283; 99284-25

== ENCOUNTER 2019-09-28 20:39 | Emergency (ER) | payer MEDICARE, SELFPAY ==
[2019-09-28 21:00] VITALS: BP 101/65; PULSE 63
--- NOTE | 2019-09-28 21:24 | EDM.PDOC ---
ED HPI GENERAL MEDICAL PROBLEM - General Chief Complaint: Respiratory Problem Stated Complaint: CONGESTION Time Seen by Provider: 09/28/19 20:43 Source of Information: Reports: Patient History Limitations: Reports: No Limitations - History of Present Illness INITIAL COMMENTS - FREE TEXT/NARRATIVE: Patient is a 69-year-old female who presents with complaints of barky cough, congestion, and ear pressure. States symptoms began around 10 September. Patient was seen in the emergency department on September 17, diagnosed with bronchitis, and given a prescription of amoxicillin and Phenergan with codeine. Patient states symptoms were improving, however returned after she finished her antibiotic. Patient states she had a similar instance in May of last year that required 2 rounds of amoxicillin to cure. Patient has a diagnosis of COPD. She denies any fever, chills, nausea, vomiting, or diarrhea. - Related Data Allergies Allergy/AdvReac Type Severity Reaction Status Date / Time hornet venom Allergy Cannot Verified 09/28/19 21:00 Remember ketoprofen Allergy Nausea Verified 09/28/19 21:00 lactose Allergy bloating Verified 09/28/19 21:00 Pork/Porcine Containing Allergy bloating Verified 09/28/19 21:00 Products venom-honey bee Allergy Cannot Verified 09/28/19 21:00 [bee venom (honey bee)] Remember doxycycline AdvReac Headache Verified 09/28/19 21:00 ibuprofen AdvReac Bleeding Verified 09/28/19 21:00 Home Meds: Home Meds Dicyclomine [Bentyl] 10 mg PO QID 05/09/16 [History] Furosemide 20 mg PO DAILY 05/09/16 [History] Glimepiride [Amaryl] 2 mg PO DAILY 05/09/16 [History] Loratadine [Claritin] 10 mg PO DAILY 05/09/16 [History] Omeprazole 40 mg PO DAILY 05/09/16 [History] Potassium Chloride 10 meq PO DAILY 05/09/16 [History] atenoloL [Atenolol] 50 tab PO DAILY 05/09/16 [History] diazePAM [Diazepam] 10 mg PO QID PRN 05/09/16 [History] Albuterol [Proair HFA] 1 - 2 puff INH Q4H PRN 09/03/17 [History] EPINEPHrine [Epipen] 1 dose IM ONETIME PRN 09/03/17 [History] Acetaminophen/Butalbital/Caff [Fioricet 325-50-40 MG] 1 tab PO Q6H PRN 07/09/18 [History] Budesonide [Rhinocort Allergy] 1 spray NASBOTH BID 07/09/18 [History] atorvaSTATin [Lipitor] 10 mg PO DAILY 07/09/18 [History] oxyCODONE HCl/Acetaminophen [Percocet 5-325 mg Tablet] 1 - 2 each PO Q6H PRN # 20 tablet 07/10/18 [Rx] Albuterol/Ipratropium [DuoNeb 3.0-0.5 MG/3 ML] 3 ml NEB Q6HR #25 ampule [Rx] Amitriptyline [Elavil] 50 mg PO BEDTIME 05/20/19 [History] Clopidogrel Bisulfate [Plavix] 75 mg PO DAILY 05/20/19 [History] Fluticasone Propionate [Flonase] 1 dose NASBOTH BID 05/20/19 [History] Ibandronate Sodium [Boniva] 150 mg PO Q30D 05/20/19 [History] Amoxicillin 1,000 mg PO BID #40 tab 09/17/19 [Rx] Codeine/Promethazine [Phenergan with Codeine] 5 - 10 ml PO Q6HR PRN #300 ml [Rx] Amoxicillin 1,000 mg PO BID 10 Days #38 tab 09/28/19 [Rx] Past Medical History HEENT History: Reports: Allergic Rhinitis, Cataract, Impaired Vision Other HEENT History: Wears glasses Cardiovascular History: Reports: Arrhythmia, CAD, High Cholesterol, Hypertension Respiratory History: Reports: COPD Other Respiratory History: coughing Gastrointestinal History: Reports: GERD, Hemorrhoids Other Gastrointestinal History: abdominal pain Genitourinary History: Reports: None 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 CLERK 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: 3 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 Musculoskeletal History: Reports: Back Pain, Chronic, Fracture, Osteoarthritis, Osteoporosis, Other (See Below) Other Musculoskeletal History: fracture ankle currently in boot Neurological History: Reports: Concussion, Headaches, Chronic, TIA Psychiatric History: Reports: Anxiety, Depression Endocrine/Metabolic History: Reports: Diabetes, Type II Hematologic History: Reports: None Immunologic History: Reports: None Oncologic (Cancer) History: Reports: None Dermatologic History: Reports: Other (See Below) Other Dermatologic History: bug bite - Infectious Disease History Infectious Disease History: Reports: None - Past Surgical History Head Surgeries/Procedures: Reports: None HEENT Surgical History: Reports: Cataract Surgery, Tonsillectomy Cardiovascular Surgical History: Reports: None Respiratory Surgical History: Reports: None GI Surgical History: Reports: Appendectomy, Other (See Below) Other GI Surgeries/Procedures: prolapsed hemorrhoid surgery Female Surgical History: Reports: Hysterectomy 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 Oncologic Surgical History: Reports: None Dermatological Surgical History: Reports: None Social & Family History - Family History Family Medical History: Noncontributory - Tobacco Use Smoking Status *Q: Current Every Day Smoker Years of Tobacco use: 55 Packs/Tins Daily: 0.5 - Caffeine Use Caffeine Use: Reports: None - Recreational Drug Use Recreational Drug Use: No - Living Situation & Occupation Living situation: Reports: , with Spouse Occupation: Retired ED ROS GENERAL - Review of Systems Review Of Systems: Comprehensive ROS is negative, except as noted in HPI. ED EXAM, GENERAL - Physical Exam Exam: See Below Exam Limited By: No Limitations General Appearance: Alert, WD/WN, No Apparent Distress Throat/Mouth: Normal Inspection, Normal Lips, Normal Teeth, Normal Gums, Normal Oropharynx, Normal Voice, No Airway Compromise Respiratory/Chest: No Respiratory Distress, Lungs Clear, No Accessory Muscle Use , Chest Non-Tender, Decreased Breath Sounds Cardiovascular: Normal Peripheral Pulses, Regular Rate, Rhythm, No Edema, No Gallop, No JVD, No Murmur, No Rub GI/Abdominal: Normal Bowel Sounds, Soft, Non-Tender, No Organomegaly, No Distention, No Abnormal Bruit, No Mass Neurological: Alert, Oriented, CN II-XII Intact, Normal Cognition, Normal Gait, Normal Reflexes, No Motor/Sensory Deficits Psychiatric: Normal Affect, Normal Mood Skin Exam: Warm, Dry, Intact, Normal Color, No Rash Lymphatic: No Adenopathy Course - Vital Signs Last Recorded V/S: Last Vital Signs Temp 98.7 F 09/28/19 20:57 Pulse 63 09/28/19 20:57 Resp 16 09/28/19 20:57 BP 101/65 09/28/19 20:57 Pulse Ox 97 09/28/19 20:57 - Orders/Labs/Meds Orders: Active Orders 24 hr Category Date Time Status Chest 2V [CR] Stat Exams 09/28/19 21:20 Taken Departure - Departure Time of Disposition: 22:19 Disposition: Home, Self-Care 01 Condition: Fair Clinical Impression: Bronchitis - Discharge Information *PRESCRIPTION DRUG MONITORING PROGRAM REVIEWED*: No *COPY OF PRESCRIPTION DRUG MONITORING REPORT IN PATIENT SANDOR: No Prescriptions: Amoxicillin 1,000 mg PO BID 10 Days #38 tab Instructions: Chronic Obstructive Pulmonary Disease Exacerbation, [id number] , Acute Bronchitis, Adult, [id number] Referrals: Tyrone Rivas MD [Primary Care Provider] - Forms: ED Department Discharge Additional Instructions: You were seen in the emergency department today for persistent cough for the last 2 weeks. You have been started on amoxicillin. A prescription has been send to [facility] in [facility]. Take this medication as prescribed and continue to use your cough syrup as needed. Return if your symptoms should worsen. Sepsis Event Note - Evaluation Sepsis Screening Result: No Definite Risk - Focused Exam Vital Signs: Vital Signs Temp Pulse Resp BP Pulse Ox 09/28/19 20:57 98.7 F 63 16 101/65 97 Date Exam was Performed: 09/28/19 Time Exam was Performed: 22:18 - My Orders Last 24 Hours: My Active Orders 09/28/19 21:20 Chest 2V [CR] Stat - Assessment/Plan Last 24 Hours: My Active Orders 09/28/19 21:20 Chest 2V [CR] Stat
[2019-09-28] MEDS ORDERED: Amoxicillin 500 MG Cap PO ONE (22:19)
--- NOTE | 2019-09-29 07:52 | CR ---
Chest: Two views of the chest were obtained. Comparison: Previous chest x-ray of 09/17/19. Heart size is normal. Tortuous thoracic aorta is seen. Lungs are clear with no acute parenchymal change. Compression deformity is noted within the mid thoracic spine which is old. Osteopenia is present. Minimal scoliosis is noted. Several old healed bilateral rib fractures are noted. Impression: 1. Stable findings as noted above. 2. Nothing acute is appreciated. Diagnostic code #2 This report was dictated in [place] Standard Time
== END 2019-09-28 22:32 | disposition home or self-care (01) ==
LOC: JD.ED 20:39
DX: J40 Bronchitis, not specified as acute or chronic (principal); I25.10 Atherosclerotic heart disease of native coronary artery without angina pectoris; E78.00 Pure hypercholesterolemia, unspecified; I10 Essential (primary) hypertension; J44.9 Chronic obstructive pulmonary disease, unspecified; K21.9 Gastro-esophageal reflux disease without esophagitis; E11.9 Type 2 diabetes mellitus without complications; F41.9 Anxiety disorder, unspecified; F32.9 Major depressive disorder, single episode, unspecified; F17.210 Nicotine dependence, cigarettes, uncomplicated; Z79.899 Other long term (current) drug therapy; Z79.84 Long term (current) use of oral hypoglycemic drugs; Z91.030 Bee allergy status; Z88.8 Allergy status to other drugs, medicaments and biological substances; Z79.02 Long term (current) use of antithrombotics/antiplatelets
CPT/HCPCS: 71046; 99283; A9270

== ENCOUNTER 2020-02-29 14:20 | Emergency (ER) | payer MEDICARE, OTHER, SELFPAY ==
--- NOTE | 2020-02-29 14:43 | EDM.PDOC ---
ED HPI GENERAL MEDICAL PROBLEM - General Chief Complaint: Respiratory Problem Stated Complaint: BEE STING BREATHING DIFFICULTY Time Seen by Provider: 02/29/20 14:43 Source of Information: Reports: Patient, Family (spouse) History Limitations: Reports: Other (Like she cannot get her breath.) - History of Present Illness INITIAL COMMENTS - FREE TEXT/NARRATIVE: 69-year-old female presents to the ED after being stung in the right buttock cheek by a hornet. He is known to be allergic to bee venom and wasp venom. She has had previous significant respiratory distress induced by being stung. She did use her EpiPen at home approximately 25 minutes ago but did not feel much relief. She still feels very short of breath and like she cannot get her air. Her reports that her voice is abnormal as well although it sounds normal to me. Patient is extremely apprehensive. She has no hives. She denies feeling any generalized pruritus. She states shortness of breath is what happened in the past. She is a cigarette smoker with mild COPD. She has not oxygen dependent. Not sure how old her EpiPen was. Onset: Today, Sudden Onset Date: 02/29/20 Onset Time: 14:15 Duration: Minutes: Location: Reports: Chest (Feels pressure central chest and unable to get a deep breath. Feels like the back of her throat is mildly swollen as well.) Quality: Reports: Other (Difficulty breathing unable to get a full deep breath) Severity: Severe (She believes her symptoms are severe. I believe they are mild to moderate) Improves with: Reports: None (She did use her EpiPen whether it was use properly or whether was out of date it did not provide her with any relief.) Worsens with: Reports: None Context: Reports: Other (Wasp sting right buttock). Denies: Activity, Exercise, Lifting, Sick Contact, Trauma Associated Symptoms: Reports: Chest Pain, Cough (ChronicChronic cough from cigarette smoking), cough w sputum, Shortness of Breath. 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 Received no relief from this.) Right Buttock Pain Score (Numeric/FACES): 10 - Related Data Allergies Allergy/AdvReac Type Severity Reaction Status Date / Time hornet venom Allergy Cannot Verified 09/28/19 21:00 Remember venom-honey bee Allergy Cannot Verified 09/28/19 21:00 [bee venom (honey bee)] Remember doxycycline AdvReac Headache Verified 09/28/19 21:00 ibuprofen AdvReac Bleeding Verified 09/28/19 21:00 ketoprofen AdvReac Nausea Verified 02/29/20 15:03 lactose AdvReac bloating Verified 02/29/20 15:03 Pork/Porcine Containing AdvReac bloating Verified 02/29/20 15:03 Products Home Meds: Home Meds Dicyclomine [Bentyl] 10 mg PO QID 05/09/16 [History] Furosemide 20 mg PO DAILY 05/09/16 [History] Glimepiride [Amaryl] 2 mg PO DAILY 05/09/16 [History] Loratadine [Claritin] 10 mg PO DAILY 05/09/16 [History] Omeprazole 40 mg PO DAILY 05/09/16 [History] Potassium Chloride 10 meq PO DAILY 05/09/16 [History] atenoloL [Atenolol] 50 tab PO DAILY 05/09/16 [History] diazePAM [Diazepam] 10 mg PO QID PRN 05/09/16 [History] Albuterol [Proair HFA] 1 - 2 puff INH Q4H PRN 09/03/17 [History] EPINEPHrine [Epipen] 1 dose IM ONETIME PRN 09/03/17 [History] Acetaminophen/Butalbital/Caff [Fioricet 325-50-40 MG] 1 tab PO Q6H PRN 07/09/18 [History] Budesonide [Rhinocort Allergy] 1 spray NASBOTH BID 07/09/18 [History] atorvaSTATin [Lipitor] 10 mg PO DAILY 07/09/18 [History] oxyCODONE HCl/Acetaminophen [Percocet 5-325 mg Tablet] 1 - 2 each PO Q6H PRN #20 tablet 07/10/18 [Rx] Albuterol/Ipratropium [DuoNeb 3.0-0.5 MG/3 ML] 3 ml NEB Q6HR #25 ampule 01/27/19 [Rx] Amitriptyline [Elavil] 50 mg PO BEDTIME 10/30/19 [History] Clopidogrel Bisulfate [Plavix] 75 mg PO DAILY 05/20/19 [History] Fluticasone Propionate [Flonase] 1 dose NASBOTH BID 05/20/19 [History] Ibandronate Sodium [Boniva] 150 mg PO Q30D 05/20/19 [History] Amoxicillin 1,000 mg PO BID #40 tab 09/17/19 [Rx] Codeine/Promethazine [Phenergan with Codeine] 5 - 10 ml PO Q6HR PRN #300 ml 09/17/19 [Rx] Amoxicillin 1,000 mg PO BID 10 Days #38 tab 09/28/19 [Rx] Past Medical History HEENT History: Reports: Allergic Rhinitis, Cataract, Impaired Vision Other HEENT History: Wears glasses Cardiovascular History: Reports: Arrhythmia, CAD, High Cholesterol, Hypertension Respiratory History: Reports: COPD Other Respiratory History: coughing Gastrointestinal History: Reports: GERD, Hemorrhoids Other Gastrointestinal History: abdominal pain Genitourinary History: Reports: None 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 FINANCE MANAGER 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: 3 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 Musculoskeletal History: Reports: Back Pain, Chronic, Fracture, Osteoarthritis, Osteoporosis, Other (See Below) Other Musculoskeletal History: fracture ankle currently in boot Neurological History: Reports: Concussion, Headaches, Chronic, TIA Psychiatric History: Reports: Anxiety, Depression Endocrine/Metabolic History: Reports: Diabetes, Type II Hematologic History: Reports: None Immunologic History: Reports: None Oncologic (Cancer) History: Reports: None Dermatologic History: Reports: Other (See Below) Other Dermatologic History: bug bite - Infectious Disease History Infectious Disease History: Reports: None - Past Surgical History Head Surgeries/Procedures: Reports: None HEENT Surgical History: Reports: Cataract Surgery, Tonsillectomy Cardiovascular Surgical History: Reports: None Respiratory Surgical History: Reports: None GI Surgical History: Reports: Appendectomy, Other (See Below) Other GI Surgeries/Procedures: prolapsed hemorrhoid surgery Female Surgical History: Reports: Hysterectomy 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 Oncologic Surgical History: Reports: None Dermatological Surgical History: Reports: None Social & Family History - Family History Family Medical History: Noncontributory - Tobacco Use Smoking Status *Q: Current Every Day Smoker Years of Tobacco use: 63 Packs/Tins Daily: 0.5 - Caffeine Use Caffeine Use: Reports: None - Living Situation & Occupation Living situation: Reports: , with Spouse Occupation: Retired ED ROS GENERAL - Review of Systems Review Of Systems: See Below Constitutional: Denies: Fever, Chills, Malaise, Weakness, Fatigue, Decreased Appetite, Weight Loss HEENT: Reports: Glasses Respiratory: Reports: Shortness of Breath, Wheezing, Cough, Sputum. Denies: Pleuritic Chest Pain Cardiovascular: Reports: Chest Pain (Until chest heaviness), Blood Pressure Pro blem ( since being stung by a wasp), Dyspnea on Exertion. Denies: Claudication, Edema, Lightheadedness, Orthopnea ( on medication for hypertension), Palpitations (Occasionally.) Endocrine: Reports: Fatigue GI/Abdominal: Reports: Other : Reports: Frequency (GERD.), Incontinence (Mostly urge incontinence) Musculoskeletal: Reports: Joint Pain (Knees hips low back and neck at times) Skin: Reports: Other (Burning at the site of recent sting by a hornet.) Neurological: Reports: No Symptoms Psychiatric: Reports: No Symptoms Hematologic/Lymphatic: Reports: No Symptoms Immunologic: Reports: No Symptoms ED EXAM, GENERAL - Physical Exam Exam: See Below Exam Limited By: No Limitations General Appearance: Alert, Anxious (Very anxious.), Moderate Distress, Other (Temperature is 36.2 with a heart rate of 66 and sinus respiratory 16 sats are 98% on room air BP 08/12/1953.) Eye Exam: Bilateral Eye: Normal Inspection, PERRL Throat/Mouth: Other (The uvula is erythematous from cigarette smoking but it is not swollen. There is no swelling of the floor of the mouth. Phonation is normal to me.) Head: Atraumatic ( mouth or tongue.), Normocephalic Neck: Normal Inspection, Supple, Non-Tender, Full Range of Motion Respiratory/Chest: No Respiratory Distress, Normal Breath Sounds (Creased air entry to the lower posterior lung sanchez by 25% due to COPD.), No Accessory Muscle Use, Decreased Breath Sounds. No: Rhonchi, Wheezing Cardiovascular: Regular Rate, Rhythm, No Edema, No Gallop, No Murmur, No Rub. No: Normal Peripheral Pulses Peripheral Pulses: 1+: Posterior Tibial (L), Posterior Tibial (R), Dorsalis Pedis (L), Dorsalis Pedis (R) GI/Abdominal: Normal Bowel Sounds, Soft, Non-Tender, No Organomegaly, No Abnormal Bruit, No Mass, Pelvis Stable Back Exam: Normal Inspection, Full Range of Motion. No: CVA Tenderness (L), CVA Tenderness (R) Extremities: Normal Inspection, Normal Range of Motion, Non-Tender, No Pedal Edema Neurological: Alert, Oriented, CN II-XII Intact, Normal Cognition Psychiatric: Normal Affect, Normal Mood Skin Exam: Warm, Dry, Intact, Normal Color, No Rash, Other (Urticaria. There is a slight wheal around the sting on the right buttock cheek but no other erythema.) Course - Vital Signs Last Recorded V/S: Last Vital Signs Temp 36.4 C 02/29/20 17:20 Pulse 70 02/29/20 17:20 Resp 12 02/29/20 17:20 BP 105/54 L 02/29/20 17:20 Pulse Ox 95 02/29/20 17:20 - Orders/Labs/Meds Orders: Active Orders 24 hr Category Date Time Status EKG Documentation Completion [RC] STAT Care 02/29/20 15:04 Active RT Aerosol Therapy [RC] ASDIRECTED Care 02/29/20 14:48 Active Meds: Medications Discontinued Medications Generic Name Dose Route Start Last Admin Trade Name Freq PRN Reason Stop Dose Admin Albuterol/Ipratropium 3 ml 02/29/20 14:48 02/29/20 15:06 Duoneb 3.0-0.5 Mg/3 Ml NEB 3 ml Q4H PRN Administration Shortness Of Breath/wheezing Dexamethasone 10 mg 02/29/20 14:45 02/29/20 15:06 Dexamethasone IVPUSH 02/29/20 14:46 Not Given ONETIME ONE Dexamethasone 10 mg 02/29/20 15:15 02/29/20 15:09 Dexamethasone IVPUSH 02/29/20 15:16 10 mg ONETIME ONE Administration Diphenhydramine HCl 50 mg 02/29/20 14:45 02/29/20 14:59 Benadryl IVPUSH 02/29/20 14:46 50 mg ONETIME ONE Administration Epinephrine HCl 0.3 mg 02/29/20 14:44 02/29/20 14:51 Adrenalin SUBCUT 02/29/20 14:45 0.3 mg ONETIME ONE Administration Famotidine 20 mg 02/29/20 14:45 02/29/20 15:12 Pepcid IVPUSH 02/29/20 14:46 20 mg ONETIME ONE Administration - Radiology Interpretation Free Text/Narrative:: 69-year-old female presents to the ED after being stung by presumably a wasp or hornet right buttock. She is allergic to venom from both bees and wasp. Within moments she started to feel like her throat was closing in and that she could not get her air. This is what has happened to her in the past. She has an EpiPen at home and did use it 25 minutes before coming to the ED with very little relief of chest discomfort. On examination her vital signs are normal with sats of 98% on room air. There is no inspiratory stridor. Lungs are clear to auscultation percussion all there is decreased air entry to the bases due to COPD. There is no swelling of the tongue or floor the mouth or the oropharynx. There is no change in phonation on my assessment. No urticaria or for generalized pruritus. Patient is extremely apprehensive. Plan Benadryl 50 mg IV. Dexamethasone 10 mg IV. Epinephrine 0.3 mg subcu forearm. Pepcid 20 mg IV. - Re-Assessments/Exams Free Text/Narrative Re-Assessment/Exam: 02/29/20 15:45: On recheck the patient is in no respiratory distress. She has not developed any urticaria. No generalized erythema. She has lost her voice which I believe to be due to histrionic event. O2 sats are 96 to 97% on room air. Chest is clear to auscultation without any wheezes. 02/29/20 17:05 recheck again patient is not exhibiting any respiratory distress. Lungs are clear to auscultation percussion. O2 sats are 97% on room air. She still aphonia but I believe this is histrionic as there is no respiratory stridor tongue and floor of mouth are not swollen. Voice to discharge her home to use Benadryl 50 mg every 6 hours as needed for pain or hive development which is highly unlikely to occur since she has had a good dose of steroids. Departure - Departure Time of Disposition: 17:06 Disposition: Home, Self-Care 01 Condition: Fair Clinical Impression: Accidental wasp sting Hymenoptera sting Qualifiers: Encounter type: initial encounter Injury intent: accidental or unintentional Qualified Code(s): T63.481A - Toxic effect of venom of other arthropod, accidental (unintentional), initial encounter Bee sting Qualifiers: Encounter type: initial encounter Injury intent: accidental or unintentional Qualified Code(s): T63.441A - Toxic effect of venom of bees, accidental (unintentional), initial encounter - Discharge Information *PRESCRIPTION DRUG MONITORING PROGRAM REVIEWED*: Not Applicable *COPY OF PRESCRIPTION DRUG MONITORING REPORT IN PATIENT SANDOR: Not Applicable Instructions: Bee, Wasp, or Hornet Sting, Adult Referrals: Tyrone Rivas MD [Primary Care Provider] - Forms: ED Department Discharge Additional Instructions: Evaluation in the emergency room today in regards to a suspect wasp sting to the right buttock which caused a localized urticaria or wheal with white blanching around the sting site. It appears this is most likely induced by a wasp and there was no stinger evident in the wound. This induced shortness of breath and loss of voice. However lungs are clear to auscultation percussion without any wheezing and you never developed any hives or generalized erythema or redness that would suggest a systemic response to the hymenoptera sting. You were treated with a combination of medications i.e. Benadryl 50 mg IV with dexamethasone 10 mg IV steroid to help stabilize and prevent further response of allergic reaction. Also Pepcid 20 mg IV which blocks the H2 receptors which can sometimes be stimulated by assisting. At the time of discharge he still had not regained your voice but your lungs are clear and your voice will return over time. You may repeat Benadryl 50 mg every 6 hours if needed for recurrence of itch swelling or shortness of breath. Next dose of Benadryl could be used around 10:30 tonight Sepsis Event Note (ED) - Evaluation Sepsis Screening Result: No Definite Risk - Focused Exam Vital Signs: Vital Signs Temp Pulse Resp BP Pulse Ox Pulse Ox 02/29/20 17:20 36.4 C 70 12 105/54 L 95 02/29/20 14:48 98 02/29/20 14:32 36.2 C 66 16 122/52 L 98 - My Orders Last 24 Hours: My Active Orders 02/29/20 14:48 RT Aerosol Therapy [RC] ASDIRECTED 02/29/20 15:04 EKG Documentation Completion [RC] STAT - Assessment/Plan Last 24 Hours: My Active Orders 02/29/20 14:48 RT Aerosol Therapy [RC] ASDIRECTED 02/29/20 15:04 EKG Documentation Completion [RC] STAT
[2020-02-29] MEDS ORDERED: EPINEPHrine 1 MG/ML SDV SUBCUT ONE (14:44)
[2020-02-29] MEDS ORDERED: diphenhydrAMINE 50 MG/ML SDV IVPUSH ONE (14:45)
[2020-02-29] MEDS ORDERED: Dexamethasone 4 MG/ML SDV IVPUSH ONE (14:45)
[2020-02-29] MEDS ORDERED: Famotidine 20 MG/2 ML SDV IVPUSH ONE (14:45)
[2020-02-29] MEDS ORDERED: Albuterol/Ipratropium 3.0-0.5 MG/3 ML Neb Soln NEB PRN (14:48)
[2020-02-29] MEDS ORDERED: Dexamethasone 10 MG/ML SDV IVPUSH ONE (15:15)
[2020-02-29 17:24] VITALS: BP 105/54; PULSE 70
== END 2020-02-29 17:20 | disposition home or self-care (01) ==
LOC: JD.ED 14:20
DX: T63.441A Toxic effect of venom of bees, accidental (unintentional), initial encounter (principal); T63.461A Toxic effect of venom of wasps, accidental (unintentional), initial encounter; I25.10 Atherosclerotic heart disease of native coronary artery without angina pectoris; T63.481A Toxic effect of venom of other arthropod, accidental (unintentional), initial encounter; E78.00 Pure hypercholesterolemia, unspecified; I10 Essential (primary) hypertension; J44.9 Chronic obstructive pulmonary disease, unspecified; K21.9 Gastro-esophageal reflux disease without esophagitis; F32.9 Major depressive disorder, single episode, unspecified; E11.9 Type 2 diabetes mellitus without complications; Z88.6 Allergy status to analgesic agent; Z91.011 Allergy to milk products; Z91.018 Allergy to other foods; Z79.02 Long term (current) use of antithrombotics/antiplatelets; Z79.84 Long term (current) use of oral hypoglycemic drugs; Z79.899 Other long term (current) drug therapy
CPT/HCPCS: 93005; 96372; 96374; 96375; 99284; J0171; J1100; J1200; J3490; J7620-GY

== ENCOUNTER 2020-06-24 14:40 | Emergency (ER) | payer MEDICARE, OTHER ==
[2020-06-24 15:27] VITALS: BP 137/74; PULSE 93
[2020-06-24] MEDS ORDERED: Sodium Chloride 0.9% 10 ML Syringe FLUSH PRN (15:40)
--- NOTE | 2020-06-24 16:20 | CR ---
Chest: Portable view of the chest was obtained. Comparison: No prior chest imaging is available. Findings: Heart size and mediastinum: Minimal tortuosity of the thoracic aorta is seen. Heart size is normal. Lungs: Lungs are clear with no acute parenchymal change. Osseous: Old healed left mid rib fracture is noted. No acute osseous abnormality is seen. Impression: 1. Findings as noted above. 2. Nothing acute is seen. Diagnostic code #2
[2020-06-24] MEDS ORDERED: methylPREDNISolone Sodium Succinate 125 MG/2 ML SDV IVPUSH PRN (16:36)
[2020-06-24] MEDS ORDERED: EPINEPHrine 1:10,000 1 MG/10 ML Syringe IM PRN (16:36)
[2020-06-24] MEDS ORDERED: Famotidine 20 MG/2 ML SDV IVPUSH PRN (16:36)
[2020-06-24] MEDS ORDERED: diphenhydrAMINE 50 MG/ML SDV IVPUSH PRN (16:36)
[2020-06-24] MEDS ORDERED: Sodium Chloride 0.9% 10 ML Syringe FLUSH SCH (16:45)
--- NOTE | 2020-06-24 18:51 | EDM.PDOC ---
ED HPI GENERAL MEDICAL PROBLEM - General Chief Complaint: Respiratory Problem Stated Complaint: COVID +/COUGH Time Seen by Provider: 06/24/20 15:28 Source of Information: Reports: Patient History Limitations: Reports: No Limitations - History of Present Illness INITIAL COMMENTS - FREE TEXT/NARRATIVE: The patient presents for a cough and COVID 19 infection. She get notified yes terday she was positive. She had a fever, cough and some shortness of breath. She has no chest pain, headache, abdominal pain, nausea or vomiting. She has no diarrhea. She does smoke and she does have a history of COPD. Onset: Gradual Duration: Day(s): Severity: Moderate Improves with: Reports: None Worsens with: Reports: None Associated Symptoms: Reports: Cough, Shortness of Breath. Denies: Chest Pain, Fever/Chills, Headaches, Nausea/Vomiting Treatments [facility]ENIOR [address] SQL DEVELOPER: Reports: Other (see below) Other Treatments [address]ENIOR [address] SQL DEVELOPER: tyleol Headache Pain Score (Numeric/FACES): 8 - Related Data Allergies Allergy/AdvReac Type Severity Reaction Status Date / Time hornet venom Allergy Unknown Cannot Verified 06/24/20 16:48 Remember venom-honey bee Allergy Unknown Cannot Verified 06/24/20 16:48 [bee venom (honey bee)] Remember ibuprofen AdvReac Intermediate Bleeding Verified 06/24/20 16:48 doxycycline AdvReac Mild Headache Verified 06/24/20 16:48 ketoprofen AdvReac Mild Nausea Verified 06/24/20 16:48 lactose AdvReac Mild bloating Verified 06/24/20 16:48 Pork/Porcine Containing AdvReac Mild bloating Verified 06/24/20 16:48 Products Home Meds: Home Meds Dicyclomine [Bentyl] 10 mg PO QID 05/09/16 [History] Furosemide 20 mg PO DAILY 05/09/16 [History] Glimepiride [Amaryl] 2 mg PO DAILY 05/09/16 [History] Loratadine [Claritin] 10 mg PO DAILY 05/09/16 [History] Omeprazole 40 mg PO DAILY 05/09/16 [History] Potassium Chloride 10 meq PO DAILY 05/09/16 [History] atenoloL [Atenolol] 50 tab PO DAILY 05/09/16 [History] diazePAM [Diazepam] 10 mg PO QID PRN 05/09/16 [History] Albuterol [Proair HFA] 1 - 2 puff INH Q4H PRN 09/03/17 [History] EPINEPHrine [Epipen] 1 dose IM ONETIME PRN 09/03/17 [History] Acetaminophen/Butalbital/Caff [Fioricet 325-50-40 MG] 1 tab PO Q6H PRN 07/09/18 [History] Budesonide [Rhinocort Allergy] 1 spray NASBOTH BID 07/09/18 [History] atorvaSTATin [Lipitor] 10 mg PO DAILY 07/09/18 [History] oxyCODONE HCl/Acetaminophen [Percocet 5-325 mg Tablet] 1 - 2 each PO Q6H PRN #20 tablet 07/10/18 [Rx] Albuterol/Ipratropium [DuoNeb 3.0-0.5 MG/3 ML] 3 ml NEB Q6HR #25 ampule 01/27/19 [Rx] Amitriptyline [Elavil] 50 mg PO BEDTIME 05/20/19 [History] Clopidogrel Bisulfate [Plavix] 75 mg PO DAILY 05/20/19 [History] Fluticasone Propionate [Flonase] 1 dose NASBOTH BID 05/20/19 [History] Ibandronate Sodium [Boniva] 150 mg PO Q30D 05/20/19 [History] Amoxicillin 1,000 mg PO BID #40 tab 09/17/19 [Rx] Codeine/Promethazine [Phenergan with Codeine] 5 - 10 ml PO Q6HR PRN #300 ml 09/17/19 [Rx] Amoxicillin 1,000 mg PO BID 10 Days #38 tab 09/28/19 [Rx] Past Medical History HEENT History: Reports: Allergic Rhinitis, Cataract, Impaired Vision Other HEENT History: Wears glasses Cardiovascular History: Reports: Arrhythmia, CAD, High Cholesterol, Hypertension Respiratory History: Reports: COPD Other Respiratory History: coughing Gastrointestinal History: Reports: GERD, Hemorrhoids Other Gastrointestinal History: abdominal pain Genitourinary History: Reports: None 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: 3 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 Musculoskeletal History: Reports: Back Pain, Chronic, Fracture, Osteoarthritis, Osteoporosis, Other (See Below) Other Musculoskeletal History: fracture ankle currently in boot Neurological History: Reports: Concussion, Headaches, Chronic, TIA Psychiatric History: Reports: Anxiety, Depression Endocrine/Metabolic History: Reports: Diabetes, Type II Hematologic History: Reports: None Immunologic History: Reports: None Oncologic (Cancer) History: Reports: None Dermatologic History: Reports: Other (See Below) Other Dermatologic History: bug bite - Infectious Disease History Infectious Disease History: Reports: None - Past Surgical History Head Surgeries/Procedures: Reports: None HEENT Surgical History: Reports: Cataract Surgery, Tonsillectomy Cardiovascular Surgical History: Reports: None Respiratory Surgical History: Reports: None GI Surgical History: Reports: Appendectomy, Other (See Below) Other GI Surgeries/Procedures: prolapsed hemorrhoid surgery Female Surgical History: Reports: Hysterectomy 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 Oncologic Surgical History: Reports: None Dermatological Surgical History: Reports: None Social & Family History - Family History Family Medical History: No Pertinent Family History - Tobacco Use Tobacco Use Status *Q: Current Every Day Tobacco User Years of Tobacco use: 53 Packs/Tins Daily: 0.4 - Caffeine Use Caffeine Use: Reports: Coffee, Soda - Recreational Drug Use Recreational Drug Use: No - Living Situation & Occupation Living situation: Reports: , with Spouse Occupation: Retired ED ROS GENERAL - Review of Systems Review Of Systems: See Below Constitutional: Reports: No Symptoms HEENT: Reports: No Symptoms Respiratory: Reports: Shortness of Breath, Cough Cardiovascular: Reports: No Symptoms Endocrine: Reports: No Symptoms GI/Abdominal: Reports: No Symptoms : Reports: No Symptoms Musculoskeletal: Reports: No Symptoms ED EXAM, GENERAL - Physical Exam Exam: See Below Exam Limited By: No Limitations General Appearance: Alert, No Apparent Distress Ears: Normal External Exam Nose: Normal Inspection Head: Atraumatic, Normocephalic Neck: Normal Inspection Respiratory/Chest: No Respiratory Distress, Decreased Breath Sounds Cardiovascular: Regular Rate, Rhythm, No Edema, No Murmur GI/Abdominal: Soft, Non-Tender, No Organomegaly, No Mass Back Exam: Normal Inspection Extremities: Normal Inspection Course - Vital Signs Last Recorded V/S: Last Vital Signs Temp 99.0 F 06/24/20 15:26 Pulse 93 06/24/20 15:26 Resp 20 06/24/20 15:26 BP 137/74 12/04/20 15:26 Pulse Ox 93 L 06/24/20 15:26 - Orders/Labs/Meds Orders: Active Orders 24 hr Category Date Time Status Cardiac Monitoring [RC] . DIRECTED Care 06/24/20 15:40 Active Peripheral IV Care [RC] . DIRECTED Care 06/24/20 15:40 Active Vital Signs [RC] Q15M Care 06/24/20 16:37 Active EPINEPHrine [EPINEPHrine 1:10,000] Med 06/24/20 16:36 Active 0.3 mg IM ONETIME PRN Famotidine [Pepcid] Med 06/24/20 16:36 Active 20 mg IVPUSH ONETIME PRN Sodium Chloride 0.9% [Saline Flush] Med 06/24/20 15:40 Active 10 ml FLUSH ASDIRECTED PRN Sodium Chloride 0.9% [Saline Flush] Med 06/24/20 16:45 Active 30 ml FLUSH ASDIRECTED diphenhydrAMINE [Benadryl] Med 06/24/20 16:36 Active 50 mg IVPUSH ONETIME PRN methylPREDNISolone Sod Succ [Solu-MEDROL] Med 06/24/20 16:36 Active 125 mg IVPUSH ONETIME PRN Peripheral IV Insertion Adult [OM.PC] Stat Oth 06/24/20 15:40 Ordered Medication Orders Diphenhydramine HCl (Benadryl) 50 mg IVPUSH ONETIME PRN PRN Reason: hypersensitivity reaction Epinephrine HCl (Epinephrine 1:10,000) 0.3 mg IM ONETIME PRN PRN Reason: hypersensitivity reaction Famotidine (Pepcid) 20 mg IVPUSH ONETIME PRN PRN Reason: hypersensitivity reaction Methylprednisolone Sodium Succinate (Solu-Medrol) 125 mg IVPUSH ONETIME PRN PRN Reason: hypersensitivity reaction Sodium Chloride (Saline Flush) 10 ml FLUSH ASDIRECTED PRN PRN Reason: Keep Vein Open Last Admin: 06/24/20 15:55 Dose: 10 ml Documented by: RENETTA Sodium Chloride (Saline Flush) 30 ml FLUSH ASDIRECTED FRANNIE Labs: Laboratory Tests 06/24/20 06/24/20 Range/Units 15:23 15:23 WBC 4.18 (3.98-10.04) K/mm3 RBC 3.80 L (3.98-5.22) M/mm3 Hgb 12.5 (11.2-15.7) gm/dl Hct 38.9 (34.1-44.9) % MCV 102.4 H D (79.4-94.8) fl MCH 32.9 H (25.6-32.2) pg MCHC 32.1 L (32.2-35.5) g/dl RDW Std Deviation 45.1 (36.4-46.3) fL Plt Count 249 (182-369) K/mm3 MPV 9.2 L (9.4-12.3) fl Neut % (Auto) 44.0 (34.0-71.1) % Lymph % (Auto) 38.5 (19.3-51.7) % Terrell % (Auto) 12.2 (4.7-12.5) % Eos % (Auto) 4.8 (0.7-5.8) Baso % (Auto) 0.5 (0.1-1.2) % Neut # (Auto) 1.84 (1.56-6.13) K/mm3 Lymph # (Auto) 1.61 (1.18-3.74) K/mm3 Terrell # (Auto) 0.51 H (0.24-0.36) K/mm3 Eos # (Auto) 0.20 (0.04-0.36) K/mm3 Baso # (Auto) 0.02 (0.01-0.08) K/mm3 Manual Slide Review Abnormal smear Sodium 140 (136-145) mEq/L Potassium 3.7 (3.5-5.1) mEq/L Chloride 105 (98-107) mEq/L Carbon Dioxide 26 (21-32) mEq/L Anion Gap 12.7 (5-15) BUN 13 (7-18) mg/dL Creatinine 0.8 (0.55-1.02) mg/dL Est Cr Clr Drug Dosing TNP Estimated GFR (MDRD) > 60 (>60) mL/min BUN/Creatinine Ratio 16.3 (14-18) Glucose 102 (83-115) mg/dL Calcium 8.9 (8.5-10.1) mg/dL Total Bilirubin 0.2 (0.2-1.0) mg/dL AST 18 (15-37) U/L ALT 21 (14-59) U/L Alkaline Phosphatase 65 (46-116) U/L Total Protein 6.8 (6.4-8.2) g/dl Albumin 3.4 (3.4-5.0) g/dl Globulin 3.4 gm/dL Albumin/Globulin Ratio 1.0 (1-2) Meds: Medications Generic Name Dose Route Start Last Admin Trade Name Freq PRN Reason Stop Dose Admin Diphenhydramine HCl 50 mg 06/24/20 16:36 Benadryl IVPUSH ONETIME PRN hypersensitivity reaction Epinephrine HCl 0.3 mg 06/24/20 16:36 Epinephrine 1:10,000 IM ONETIME PRN hypersensitivity reaction Famotidine 20 mg 06/24/20 16:36 Pepcid IVPUSH ONETIME PRN hypersensitivity reaction Methylprednisolone Sodium Succinate 125 mg 06/24/20 16:36 Solu-Medrol IVPUSH ONETIME PRN hypersensitivity reaction Sodium Chloride 10 ml 06/24/20 15:40 06/24/20 15:55 Saline Flush FLUSH 10 ml ASDIRECTED PRN Administration Keep Vein Open Sodium Chloride 30 ml 06/24/20 16:45 Saline Flush FLUSH ASDIRECTED FRANNIE Discontinued Medications Generic Name Dose Route Start Last Admin Trade Name Freq PRN Reason Stop Dose Admin Bamlanivimab 700 mg/ Sodium 270 mls @ 270 mls/hr 06/24/20 16:36 06/24/20 17 :12 Chloride IV 06/24/20 16:37 270 mls/hr ONETIME ONE Administration Protocol - Re-Assessments/Exams Free Text/Narrative Re-Assessment/Exam: 06/24/20 18:45 I ordered an IV saline lock, CXR and labs. Her CXR shows nothing acute. Her CBC and CMP look good. She has a history of COPD and she smokes. I feel she is a candidate for the bamlanivimab. I spoke with the patient to provide information about bamlanivimab treatment for the patient. I offered them the "Patient and Caregiver [facility] Bamlanivimad Fact Sheet" to read and review. I stated the drug has been approved by an emergency use authorization (EUA) process and has not fully been FDA reviewed or approved. The patient meets the EUA requirements. I discussed there are other potential treatment options that are currently not FDA approved to treat COVID 19. Offered opportunity to ask questions and all questions were answered. Patient voiced understanding and agreed to proceed with treatment for the patient. Departure - Departure Time of Disposition: 18:55 Disposition: Home, Self-Care 01 Condition: Good Clinical Impression: COVID-19 - Discharge Information *PRESCRIPTION DRUG MONITORING PROGRAM REVIEWED*: Not Applicable *COPY OF PRESCRIPTION DRUG MONITORING REPORT IN PATIENT SANDOR: Not Applicable Referrals: Tyrone Rivas MD [Primary Care Provider] - 1 Week Additional Instructions: Drink plenty of fluids. Take tylenol or motrin for any fever or pain. Keep taking your home meds. Please return if you are worse. Sepsis Event Note (ED) - Evaluation Sepsis Screening Result: No Definite Risk - Focused Exam Vital Signs: Vital Signs Temp Pulse Resp BP Pulse Ox 06/24/20 15:26 99.0 F 93 20 137/74 93 L - My Orders Last 24 Hours: My Active Orders 06/24/20 15:40 Cardiac Monitoring [RC] . DIRECTED Peripheral IV Care [RC] . DIRECTED Sodium Chloride 0.9% [Saline Flush] 10 ml FLUSH ASDIRECTED PRN Peripheral IV Insertion Adult [OM.PC] Stat 06/24/20 16:36 EPINEPHrine [EPINEPHrine 1:10,000] 0.3 mg IM ONETIME PRN Famotidine [Pepcid] 20 mg IVPUSH ONETIME PRN diphenhydrAMINE [Benadryl] 50 mg IVPUSH ONETIME PRN methylPREDNISolone Sod Succ [Solu-MEDROL] 125 mg IVPUSH ONETIME PRN 06/24/20 16:37 Vital Signs [RC] Q15M 06/24/20 16:45 Sodium Chloride 0.9% [Saline Flush] 30 ml FLUSH ASDIRECTED - Assessment/Plan Last 24 Hours: My Active Orders 06/24/20 15:40 Cardiac Monitoring [RC] . DIRECTED Peripheral IV Care [RC] . DIRECTED Sodium Chloride 0.9% [Saline Flush] 10 ml FLUSH ASDIRECTED PRN Peripheral IV Insertion Adult [OM.PC] Stat 06/24/20 16:36 EPINEPHrine [EPINEPHrine 1:10,000] 0.3 mg IM ONETIME PRN Famotidine [Pepcid] 20 mg IVPUSH ONETIME PRN diphenhydrAMINE [Benadryl] 50 mg IVPUSH ONETIME PRN methylPREDNISolone Sod Succ [Solu-MEDROL] 125 mg IVPUSH ONETIME PRN 06/24/20 16:37 Vital Signs [RC] Q15M 06/24/20 16:45 Sodium Chloride 0.9% [Saline Flush] 30 ml FLUSH ASDIRECTED
== END 2020-06-24 19:35 | disposition home or self-care (01) ==
LOC: JD.ED 14:40
DX: U07.1 COVID-19 (principal); I25.10 Atherosclerotic heart disease of native coronary artery without angina pectoris; E78.00 Pure hypercholesterolemia, unspecified; I10 Essential (primary) hypertension; J44.9 Chronic obstructive pulmonary disease, unspecified; K21.9 Gastro-esophageal reflux disease without esophagitis; M19.90 Unspecified osteoarthritis, unspecified site; F32.9 Major depressive disorder, single episode, unspecified; E11.9 Type 2 diabetes mellitus without complications; F17.210 Nicotine dependence, cigarettes, uncomplicated; Z79.02 Long term (current) use of antithrombotics/antiplatelets; Z79.84 Long term (current) use of oral hypoglycemic drugs; Z91.030 Bee allergy status; Z88.6 Allergy status to analgesic agent; Z88.1 Allergy status to other antibiotic agents; Z91.048 Other nonmedicinal substance allergy status; Z79.899 Other long term (current) drug therapy; Z79.82 Long term (current) use of aspirin
CPT/HCPCS: 36415; 71045; 71045-26; 80053; 85025; 96365; 99284; 99285-25; J7050

== ENCOUNTER 2020-10-08 11:25 | Emergency (ER) | payer MEDICARE, SELFPAY ==
--- NOTE | 2020-10-08 11:54 | EDM.PDOC ---
ED HPI GENERAL MEDICAL PROBLEM - General Chief Complaint: General Stated Complaint: SORE THROAT, EAR PAIN,COUGH, SINUS PAIN FOOT PAIN Time Seen by Provider: 10/08/20 11:38 Source of Information: Reports: Patient History Limitations: Reports: No Limitations - History of Present Illness INITIAL COMMENTS - FREE TEXT/NARRATIVE: The patient presents with a cough, shortness of breath and left foot pain. The cough and shortness of breath has been going on for a few days. She will get bronchitis each year about this time. She still smokes and she has COPD. She also has left foot pain. This started about a week ago. She denies any injury. She usually is in a wheel chair but she tried to get up and walk around more a week ago. She did not injure it but it has been hurting. Onset: Gradual Duration: Week(s): Location: Reports: Lower Extremity, Left (foot) Quality: Reports: Sharp Severity: Moderate Improves with: Reports: None Worsens with: Reports: None Associated Symptoms: Reports: Cough, Shortness of Breath. Denies: Chest Pain, Fever/Chills, Headaches, Nausea/Vomiting Left Foot Pain Score (Numeric/FACES): 10 - Related Data Allergies Allergy/AdvReac Type Severity Reaction Status Date / Time hornet venom Allergy Unknown Cannot Verified 10/08/20 11:40 Remember venom-honey bee Allergy Unknown Cannot Verified 10/08/20 11:40 [bee venom (honey bee)] Remember ibuprofen AdvReac Intermediate Bleeding Verified 10/08/20 11:40 doxycycline AdvReac Mild Headache Verified 10/08/20 11:40 ketoprofen AdvReac Mild Nausea Verified 10/08/20 11:40 lactose AdvReac Mild bloating Verified 10/08/20 11:40 Pork/Porcine Containing AdvReac Mild bloating Verified 10/08/20 11:40 Products Home Meds: Home Meds Dicyclomine [Bentyl] 10 mg PO QID 05/09/16 [History] Furosemide 20 mg PO DAILY 05/09/16 [History] Glimepiride [Amaryl] 2 mg PO DAILY 05/09/16 [History] Loratadine [Claritin] 10 mg PO DAILY 05/09/16 [History] Omeprazole 40 mg PO DAILY 05/09/16 [History] Potassium Chloride 10 meq PO DAILY 05/09/16 [History] atenoloL [Atenolol] 50 tab PO DAILY 05/09/16 [History] diazePAM [Diazepam] 10 mg PO QID PRN 05/09/16 [History] Albuterol [Proair HFA] 1 - 2 puff INH Q4H PRN 09/03/17 [History] EPINEPHrine [Epipen] 1 dose IM ONETIME PRN 09/03/17 [History] Acetaminophen/Butalbital/Caff [Fioricet 325-50-40 MG] 1 tab PO Q6H PRN 07/09/18 [History] Budesonide [Rhinocort Allergy] 1 spray NASBOTH BID 07/09/18 [History] atorvaSTATin [Lipitor] 10 mg PO DAILY 07/09/18 [History] oxyCODONE HCl/Acetaminophen [Percocet 5-325 mg Tablet] 1 - 2 each PO Q6H PRN #20 tablet 07/10/18 [Rx] Albuterol/Ipratropium [DuoNeb 3.0-0.5 MG/3 ML] 3 ml NEB Q6HR #25 ampule 01/27/19 [Rx] Amitriptyline [Elavil] 50 mg PO BEDTIME 05/20/19 [History] Clopidogrel Bisulfate [Plavix] 75 mg PO DAILY 05/20/19 [History] Fluticasone Propionate [Flonase] 1 dose NASBOTH BID 05/20/19 [History] Ibandronate Sodium [Boniva] 150 mg PO Q30D 05/20/19 [History] Codeine/Promethazine [Phenergan with Codeine] 5 - 10 ml PO Q6HR PRN #300 ml 09/17/19 [Rx] Amoxicillin 1,000 mg PO BID #40 tab 10/08/20 [Rx] Past Medical History HEENT History: Reports: Allergic Rhinitis, Cataract, Impaired Vision Other HEENT History: Wears glasses Cardiovascular History: Reports: Arrhythmia, CAD, High Cholesterol, Hypertension Respiratory History: Reports: COPD Other Respiratory History: coughing Gastrointestinal History: Reports: GERD, Hemorrhoids Other Gastrointestinal History: abdominal pain Genitourinary History: Reports: None 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 Musculoskeletal History: Reports: Back Pain, Chronic, Fracture, Osteoarthritis, Osteoporosis, Other (See Below) Other Musculoskeletal History: fracture ankle currently in boot Neurological History: Reports: Concussion, Headaches, Chronic, TIA Psychiatric History: Reports: Anxiety, Depression Endocrine/Metabolic History: Reports: Diabetes, Type II Hematologic History: Reports: None Immunologic History: Reports: None Oncologic (Cancer) History: Reports: None Dermatologic History: Reports: Other (See Below) Other Dermatologic History: bug bite - Infectious Disease History Infectious Disease History: Reports: Novel Coronavirus - Past Surgical History Head Surgeries/Procedures: Reports: None HEENT Surgical History: Reports: Cataract Surgery, Tonsillectomy Cardiovascular Surgical History: Reports: None Respiratory Surgical History: Reports: None GI Surgical History: Reports: Appendectomy, Other (See Below) Other GI Surgeries/Procedures: prolapsed hemorrhoid surgery Female Surgical History: Reports: Hysterectomy 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 Oncologic Surgical History: Reports: None Dermatological Surgical History: Reports: None Social & Family History - Family History Family Medical History: No Pertinent Family History - Tobacco Use Tobacco Use Status *Q: Current Every Day Tobacco User Years of Tobacco use: 18 Packs/Tins Daily: 0.5 - Caffeine Use Caffeine Use: Reports: None - Recreational Drug Use Recreational Drug Use: No - Living Situation & Occupation Living situation: Reports: , with Spouse Occupation: Retired ED ROS GENERAL - Review of Systems Review Of Systems: See Below Constitutional: Reports: No Symptoms HEENT: Reports: No Symptoms Respiratory: Reports: Shortness of Breath, Cough Cardiovascular: Reports: No Symptoms Endocrine: Reports: No Symptoms GI/Abdominal: Reports: No Symptoms : Reports: No Symptoms Musculoskeletal: Reports: Other (Left foot pain) ED EXAM, GENERAL - Physical Exam Exam: See Below Exam Limited By: No Limitations General Appearance: Alert, No Apparent Distress Ears: Normal External Exam Nose: Normal Inspection Head: Atraumatic, Normocephalic Neck: Normal Inspection Respiratory/Chest: No Respiratory Distress, Decreased Breath Sounds Cardiovascular: Regular Rate, Rhythm, No Edema, No Murmur GI/Abdominal: Soft, Non-Tender, No Organomegaly, No Mass Back Exam: Normal Inspection Extremities: Normal Inspection Course - Vital Signs Last Recorded V/S: Last Vital Signs Temp 98.3 F 10/08/20 11:38 Pulse 69 10/08/20 11:38 Resp 20 10/08/20 11:38 BP 115/70 10/08/20 11:38 Pulse Ox 96 10/08/20 11:38 - Orders/Labs/Meds Orders: Active Orders 24 hr Category Date Time Status Foot Comp Min 3V Lt [CR] Stat Exams 10/08/20 11:50 Taken - Re-Assessments/Exams Free Text/Narrative Re-Assessment/Exam: 10/08/20 11:54 I have ordered an x-ray of her left foot. 10/08/20 12:24 Her x-ray shows no fracture but she does have osteopenia. Departure - Departure Time of Disposition: 12:25 Disposition: Home, Self-Care 01 Condition: Good Clinical Impression: Bronchitis Sprain of left foot Qualifiers: Encounter type: initial encounter Qualified Code(s): S93.602A - Unspecified sprain of left foot, initial encounter - Discharge Information *PRESCRIPTION DRUG MONITORING PROGRAM REVIEWED*: No *COPY OF PRESCRIPTION DRUG MONITORING REPORT IN PATIENT SANDOR: No Prescriptions: Amoxicillin 1,000 mg PO BID #40 tab Referrals: Tyrone Rivas MD [Primary Care Provider] - 1 Week Forms: ED Department Discharge Additional Instructions: Take the amoxicillin 1,000mg by mouth 2 times per day. Take your other medication as prescribed. Wrap your left foot. Ice for 15 minutes 3 times per day for a 3 to 5 days. Follow up with your doctor within a week. Please return if you are worse. Sepsis Event Note (ED) - Evaluation Sepsis Screening Result: No Definite Risk - Focused Exam Vital Signs: Vital Signs Temp Pulse Resp BP Pulse Ox 10/08/20 11:38 98.3 F 69 20 115/70 96 - My Orders Last 24 Hours: My Active Orders 10/08/20 11:50 Foot Comp Min 3V Lt [CR] Stat - Assessment/Plan Last 24 Hours: My Active Orders 10/08/20 11:50 Foot Comp Min 3V Lt [CR] Stat
[2020-10-08 12:36] VITALS: BP 140/72; PULSE 98
--- NOTE | 2020-10-09 09:49 | CR ---
Left foot: 4 views of the left foot were obtained. Comparison: Prior left foot exam of 06/30/18. Plate and screws are noted within the distal fibula. Bony structures are osteopenic. No acute fracture, dislocation or other bony abnormality is appreciated. Impression: 1. Prior ankle surgery. 2. Osteopenia. 3. Nothing acute is appreciated. Diagnostic code #2
== END 2020-10-08 12:45 | disposition home or self-care (01) ==
LOC: JD.ED 11:25
DX: S93.602A Unspecified sprain of left foot, initial encounter (principal); J40 Bronchitis, not specified as acute or chronic; I25.10 Atherosclerotic heart disease of native coronary artery without angina pectoris; E78.00 Pure hypercholesterolemia, unspecified; I10 Essential (primary) hypertension; K21.9 Gastro-esophageal reflux disease without esophagitis; E11.9 Type 2 diabetes mellitus without complications; F17.200 Nicotine dependence, unspecified, uncomplicated; Z86.16 Personal history of COVID-19; Z86.73 Personal history of transient ischemic attack (TIA), and cerebral infarction without residual deficits; Z91.030 Bee allergy status; Z88.6 Allergy status to analgesic agent; Z88.1 Allergy status to other antibiotic agents; Z91.011 Allergy to milk products; Z91.018 Allergy to other foods; Z91.038 Other insect allergy status; Z79.02 Long term (current) use of antithrombotics/antiplatelets; Z79.84 Long term (current) use of oral hypoglycemic drugs; Z79.899 Other long term (current) drug therapy; X58.XXXA Exposure to other specified factors, initial encounter
CPT/HCPCS: 73630-26-LT; 73630-LT; 99283; 99283-25

== ENCOUNTER 2020-12-13 14:36 | Emergency (ER) | payer MEDICARE, OTHER ==
[2020-12-13 14:54] VITALS: BP 109/50; PULSE 69
--- NOTE | 2020-12-13 16:29 | EDM.PDOC ---
ED HPI GENERAL MEDICAL PROBLEM - General Chief Complaint: Respiratory Problem Stated Complaint: COUGH/CONGESTION Time Seen by Provider: 12/13/20 14:56 Source of Information: Reports: Patient History Limitations: Reports: No Limitations - History of Present Illness INITIAL COMMENTS - FREE TEXT/NARRATIVE: 70-year-old female presents the emergency department today with complaints of cough, sore throat, bilateral ear pain, and sinus pressure. She states that this all started about 4 days ago. She denies any recent fever, chills, nausea, vomiting or diarrhea. She denies any headache. She states that she believes she has a sinus infection and needs antibiotics today. Headache Pain Score (Numeric/FACES): 10 Ear Pain Score (Numeric/FACES): 8 Throat Pain Score (Numeric/FACES): 8 - Related Data Allergies Allergy/AdvReac Type Severity Reaction Status Date / Time hornet venom Allergy Unknown Cannot Verified 10/08/20 11:40 Remember venom-honey bee Allergy Unknown Cannot Verified 10/08/20 11:40 [bee venom (honey bee)] Remember ibuprofen AdvReac Intermediate Bleeding Verified 10/08/20 11:40 doxycycline AdvReac Mild Headache Verified 10/08/20 11:40 ketoprofen AdvReac Mild Nausea Verified 10/08/20 11:40 lactose AdvReac Mild bloating Verified 10/08/20 11:40 Pork/Porcine Containing AdvReac Mild bloating Verified 10/08/20 11:40 Products Home Meds: Home Meds Dicyclomine [Bentyl] 10 mg PO QID 05/09/16 [History] Furosemide 20 mg PO DAILY 05/09/16 [History] Glimepiride [Amaryl] 2 mg PO DAILY 05/09/16 [History] Loratadine [Claritin] 10 mg PO DAILY 05/09/16 [History] Omeprazole 40 mg PO DAILY 05/09/16 [History] Potassium Chloride 10 meq PO DAILY 05/09/16 [History] atenoloL [Atenolol] 50 tab PO DAILY 05/09/16 [History] diazePAM [Diazepam] 10 mg PO QID PRN 05/09/16 [History] Albuterol [Proair HFA] 1 - 2 puff INH Q4H PRN 09/03/17 [History] EPINEPHrine [Epipen] 1 dose IM ONETIME PRN 09/03/17 [History] Acetaminophen/Butalbital/Caff [Fioricet 325-50-40 MG] 1 tab PO Q6H PRN 07/09/18 [History] Budesonide [Rhinocort Allergy] 1 spray NASBOTH BID 07/09/18 [History] atorvaSTATin [Lipitor] 10 mg PO DAILY 07/09/18 [History] oxyCODONE HCl/Acetaminophen [Percocet 5-325 mg Tablet] 1 - 2 each PO Q6H PRN #20 tablet 07/10/18 [Rx] Albuterol/Ipratropium [DuoNeb 3.0-0.5 MG/3 ML] 3 ml NEB Q6HR #25 ampule 01/27/19 [Rx] Amitriptyline [Elavil] 50 mg PO BEDTIME 05/20/19 [History] Clopidogrel Bisulfate [Plavix] 75 mg PO DAILY 05/20/19 [History] Fluticasone Propionate [Flonase] 1 dose NASBOTH BID 05/20/19 [History] Ibandronate Sodium [Boniva] 150 mg PO Q30D 05/20/19 [History] Codeine/Promethazine [Phenergan with Codeine] 5 - 10 ml PO Q6HR PRN #300 ml 09/17/19 [Rx] Amoxicillin 1,000 mg PO BID #40 tab 10/08/20 [Rx] Past Medical History HEENT History: Reports: Allergic Rhinitis, Cataract, Impaired Vision Other HEENT History: Wears glasses Cardiovascular History: Reports: Arrhythmia, CAD, High Cholesterol, Hypertension Respiratory History: Reports: COPD Other Respiratory History: coughing Gastrointestinal History: Reports: GERD, Hemorrhoids Other Gastrointestinal History: abdominal pain Genitourinary History: Reports: None PLATINUMSMITH History: Reports: Other PLATINUMSMITH History: 3 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 Musculoskeletal History: Reports: Back Pain, Chronic, Fracture, Osteoarthritis, Osteoporosis, Other (See Below) Other Musculoskeletal History: fracture ankle currently in boot Neurological History: Reports: Concussion, Headaches, Chronic, TIA Psychiatric History: Reports: Anxiety, Depression Endocrine/Metabolic History: Reports: Diabetes, Type II Hematologic History: Reports: None Immunologic History: Reports: None Oncologic (Cancer) History: Reports: None Dermatologic History: Reports: Other (See Below) Other Dermatologic History: bug bite - Infectious Disease History Infectious Disease History: Reports: Novel Coronavirus - Past Surgical History Head Surgeries/Procedures: Reports: None HEENT Surgical History: Reports: Cataract Surgery, Tonsillectomy Cardiovascular Surgical History: Reports: None Respiratory Surgical History: Reports: None GI Surgical History: Reports: Appendectomy, Other (See Below) Other GI Surgeries/Procedures: prolapsed hemorrhoid surgery Female Surgical History: Reports: Hysterectomy 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 Oncologic Surgical History: Reports: None Dermatological Surgical History: Reports: None Social & Family History - Family History Family Medical History: No Pertinent Family History - Tobacco Use Tobacco Use Status *Q: Current Every Day Tobacco User Years of Tobacco use: 54 Packs/Tins Daily: 0.5 - Caffeine Use Caffeine Use: Reports: Coffee, Tea - Recreational Drug Use Recreational Drug Use: No - Living Situation & Occupation Living situation: Reports: , with Spouse Occupation: Retired ED ROS GENERAL - Review of Systems Review Of Systems: Comprehensive ROS is negative, except as noted in HPI. ED EXAM, GENERAL - Physical Exam Exam: See Below Exam Limited By: No Limitations General Appearance: Alert, WD/WN, No Apparent Distress Ears: Normal External Exam, Normal Canal, Hearing Grossly Normal, Normal TMs Nose: Normal Inspection, Normal Mucosa Throat/Mouth: Normal Inspection, Normal Lips, Normal Gums, Normal Oropharynx, No Airway Compromise. No: Normal Voice (Patient does have a raspy voice) Head: Atraumatic. No: Sinus Tenderness Neck: Normal Inspection, Supple, Non-Tender. No: Lymphadenopathy (L), Lymphadenopathy (R) Respiratory/Chest: No Respiratory Distress, Lungs Clear (Fine crackles noted to bilateral bases), No Accessory Muscle Use, Chest Non-Tender, Crackles (Bilateral bases) Cardiovascular: Normal Peripheral Pulses, Regular Rate, Rhythm, No Edema, No Murmur Peripheral Pulses: 2+: Radial (L), Radial (R) GI/Abdominal: Normal Bowel Sounds, Soft, Non-Tender, No Distention (Female) Exam: Deferred Rectal (Female) Exam: Deferred Back Exam: Normal Inspection Extremities: Normal Inspection Neurological: Alert, Oriented, Normal Cognition Psychiatric: Normal Affect, Normal Mood Skin Exam: Warm, Dry, Intact, Normal Color, No Rash Lymphatic: No Adenopathy Course - Vital Signs Text/Narrative:: Patient presents with a 4-day history of cough, sore throat, bilateral ear pain, and sinus pressure. She denies any fever, chills, nausea, vomiting, or diarrhea. She denies any headache. She is a pack-a-day smoker for the past 30+ years. She reports that she is diabetic for which she takes oral agents. At the time of my assessment as I was interviewing the patient her significant other who was sitting beside the bed would talk over the top of her and answer my questions. At that time I asked him to please allow the patient to answer the questions for me. I did assess the patient her ears were unremarkable, her throat was not erythematous or edematous. There was no purulent drainage on her tonsils. The patient's lymph nodes were not swollen. She did have some fine crackles noted to the bilateral bases. I had elected to order a chest x-ray on this patient and I discussed with her the fact that if this was negative I likely would not prescribe any antibiotics as it has only been 4 days and this is likely viral in origin. At that time the patient's significant other got very angry and stated between me and the patient and told her he would be taking her to [place] because I would not do anything for them. The patient at the time stated that she wanted to stay and wait to see what showed up on chest x- ray however he demanded that they leave. I did try to reinforce the fact that I wanted to do a chest x-ray to see and rule out a pneumonia however he quickly pushed me aside and grabbed her wheelchair and started to transfer her into it. At that time nursing staff brought the patient AMA papers. I did notify them that leaving AGAINST MEDICAL ADVICE could result in . Last Recorded V/S: Last Vital Signs Temp 98.8 F 12/13/20 14:53 Pulse 69 12/13/20 14:53 Resp 20 12/13/20 14:53 BP 109/50 L 12/13/20 14:53 Pulse Ox 98 12/13/20 14:53 Departure - Departure Time of Disposition: 15:43 Disposition: Against Medical Advice 07 Condition: Good Clinical Impression: Sinus congestion - Discharge Information Referrals: Tyrone Rivas MD [Primary Care Provider] - Sepsis Event Note (ED) - Evaluation Sepsis Screening Result: No Definite Risk - Focused Exam Vital Signs: Vital Signs Temp Pulse Resp BP Pulse Ox 12/13/20 14:53 98.8 F 69 20 109/50 L 98
== END 2020-12-13 15:38 | disposition left against medical advice (07) ==
LOC: JD.ED 14:36
DX: R09.81 Nasal congestion (principal); I25.10 Atherosclerotic heart disease of native coronary artery without angina pectoris; E78.00 Pure hypercholesterolemia, unspecified; I10 Essential (primary) hypertension; J44.9 Chronic obstructive pulmonary disease, unspecified; K21.9 Gastro-esophageal reflux disease without esophagitis; E11.9 Type 2 diabetes mellitus without complications; Z91.030 Bee allergy status; Z88.6 Allergy status to analgesic agent; Z88.1 Allergy status to other antibiotic agents; Z91.048 Other nonmedicinal substance allergy status; Z72.0 Tobacco use; Z86.73 Personal history of transient ischemic attack (TIA), and cerebral infarction without residual deficits
CPT/HCPCS: 99282; 99283

== ENCOUNTER 2020-12-18 12:50 | Emergency (ER) | payer MEDICARE, SELFPAY ==
[2020-12-18 13:25] VITALS: BP 104/54
--- NOTE | 2020-12-18 13:51 | EDM.PDOC ---
ED HPI GENERAL MEDICAL PROBLEM - General Chief Complaint: Respiratory Problem Stated Complaint: CHEST CONGESTION Time Seen by Provider: 12/18/20 13:21 Source of Information: Reports: Patient, RN Notes Reviewed History Limitations: Reports: No Limitations - History of Present Illness INITIAL COMMENTS - FREE TEXT/NARRATIVE: Patient is a 70-year-old female presenting to the emergency department with complaints of a 2-week history of congestion, postnasal drip, ear pain, sore throat, and cough. She reports that she gets symptoms similar to this every year and requires antibiotics for treatment of this. Denies any fever or chills. She did present to this emergency department 5 days ago with similar complaints and left AMA after becoming upset. She today returns because the symptoms have continued. Denies any history of chronic respiratory conditions but is a smoker with a [id number] history. Chest Pain Score (Numeric/FACES): 10 - Related Data Allergies Allergy/AdvReac Type Severity Reaction Status Date / Time hornet venom Allergy Unknown Cannot Verified 12/18/20 13:25 Remember venom-honey bee Allergy Unknown Cannot Verified 12/18/20 13:25 [bee venom (honey bee)] Remember ibuprofen AdvReac Intermediate Bleeding Verified 12/18/20 13:25 doxycycline AdvReac Mild Headache Verified 12/18/20 13:25 ketoprofen AdvReac Mild Nausea Verified 12/18/20 13:25 lactose AdvReac Mild bloating Verified 12/18/20 13:25 Pork/Porcine Containing AdvReac Mild bloating Verified 12/18/20 13:25 Products Home Meds: Home Meds Dicyclomine [Bentyl] 10 mg PO QID 05/09/16 [History] Furosemide 20 mg PO DAILY 05/09/16 [History] Glimepiride [Amaryl] 2 mg PO DAILY 05/09/16 [History] Loratadine [Claritin] 10 mg PO DAILY 05/09/16 [History] Omeprazole 40 mg PO DAILY 05/09/16 [History] Potassium Chloride 10 meq PO DAILY 05/09/16 [History] atenoloL [Atenolol] 50 tab PO DAILY 05/09/16 [History] diazePAM [Diazepam] 10 mg PO QID PRN 05/09/16 [History] Albuterol [Proair HFA] 1 - 2 puff INH Q4H PRN 09/03/17 [History] EPINEPHrine [Epipen] 1 dose IM ONETIME PRN 09/03/17 [History] Acetaminophen/Butalbital/Caff [Fioricet 325-50-40 MG] 1 tab PO Q6H PRN 07/09/18 [History] Budesonide [Rhinocort Allergy] 1 spray NASBOTH BID 07/09/18 [History] atorvaSTATin [Lipitor] 10 mg PO DAILY 07/09/18 [History] oxyCODONE HCl/Acetaminophen [Percocet 5-325 mg Tablet] 1 - 2 each PO Q6H PRN #20 tablet 07/10/18 [Rx] Albuterol/Ipratropium [DuoNeb 3.0-0.5 MG/3 ML] 3 ml NEB Q6HR #25 ampule 01/27/19 [Rx] Amitriptyline [Elavil] 50 mg PO BEDTIME 05/20/19 [History] Clopidogrel Bisulfate [Plavix] 75 mg PO DAILY 05/20/19 [History] Fluticasone Propionate [Flonase] 1 dose NASBOTH BID 05/20/19 [History] Ibandronate Sodium [Boniva] 150 mg PO Q30D 05/20/19 [History] Codeine/Promethazine [Phenergan with Codeine] 5 - 10 ml PO Q6HR PRN #300 ml 09/17/19 [Rx] Amoxicillin 1,000 mg PO BID #40 tab 10/08/20 [Rx] Amoxicillin/Clavulanate K [Augmentin 875-125 MG] 1 tab PO BID 5 Days #10 tab 12/18/20 [Rx] Past Medical History HEENT History: Reports: Allergic Rhinitis, Cataract, Impaired Vision Other HEENT History: Wears glasses Cardiovascular History: Reports: Arrhythmia, CAD, High Cholesterol, Hypertension Respiratory History: Reports: COPD Other Respiratory History: coughing Gastrointestinal History: Reports: GERD, Hemorrhoids Other Gastrointestinal History: abdominal pain Genitourinary History: Reports: None CHIEF INVESTIGATOR History: Reports: Other CHIEF INVESTIGATOR History: 3 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 Musculoskeletal History: Reports: Back Pain, Chronic, Fracture, Osteoarthritis, Osteoporosis, Other (See Below) Other Musculoskeletal History: fracture ankle currently in boot Neurological History: Reports: Concussion, Headaches, Chronic, TIA Psychiatric History: Reports: Anxiety, Depression Endocrine/Metabolic History: Reports: Diabetes, Type II Hematologic History: Reports: None Immunologic History: Reports: None Oncologic (Cancer) History: Reports: None Dermatologic History: Reports: Other (See Below) Other Dermatologic History: bug bite - Infectious Disease History Infectious Disease History: Reports: Novel Coronavirus - Past Surgical History HEENT Surgical History: Reports: Cataract Surgery, Tonsillectomy GI Surgical History: Reports: Appendectomy, Other (See Below) Other GI Surgeries/Procedures: prolapsed hemorrhoid surgery Female Surgical History: Reports: Hysterectomy 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 Oncologic Surgical History: Reports: None Dermatological Surgical History: Reports: None Social & Family History - Family History Family Medical History: No Pertinent Family History - Caffeine Use Caffeine Use: Reports: Coffee, Tea - Living Situation & Occupation Living situation: Reports: , with Spouse Occupation: Retired ED ROS GENERAL - Review of Systems Review Of Systems: See Below Constitutional: Reports: No Symptoms. Denies: Fever, Chills, Weakness HEENT: Reports: Ear Pain, Rhinitis, Sinus Problem, Throat Pain. Denies: Vertigo Respiratory: Reports: Cough, Sputum. Denies: Shortness of Breath, Wheezing Cardiovascular: Reports: No Symptoms Endocrine: Reports: No Symptoms GI/Abdominal: Reports: No Symptoms. Denies: Abdominal Pain, Diarrhea, Nausea, Vomiting : Reports: No Symptoms Musculoskeletal: Reports: No Symptoms Skin: Reports: No Symptoms Neurological: Reports: No Symptoms Psychiatric: Reports: No Symptoms Hematologic/Lymphatic: Reports: No Symptoms Immunologic: Reports: No Symptoms ED EXAM, GENERAL - Physical Exam Exam: See Below Exam Limited By: No Limitations General Appearance: Alert, WD/WN, No Apparent Distress Ears: Normal External Exam, Normal Canal, Hearing Grossly Normal, Normal TMs Throat/Mouth: Normal Inspection, Normal Lips, Normal Teeth, Normal Gums, Normal Oropharynx, Normal Voice, No Airway Compromise Respiratory/Chest: No Respiratory Distress, Lungs Clear, Normal Breath Sounds, No Accessory Muscle Use, Chest Non-Tender Cardiovascular: Normal Peripheral Pulses, Regular Rate, Rhythm, No Edema, No Gallop, No JVD, No Murmur, No Rub GI/Abdominal: Normal Bowel Sounds, Soft, Non-Tender, No Organomegaly, No Distention, No Abnormal Bruit, No Mass Neurological: Alert, Oriented, CN II-XII Intact, Normal Cognition, Normal Gait, Normal Reflexes, No Motor/Sensory Deficits Psychiatric: Normal Affect Skin Exam: Warm, Dry, Intact, Normal Color, No Rash Course - Vital Signs Last Recorded V/S: Last Vital Signs Temp 96.4 F L 12/18/20 13:21 Pulse 60 12/18/20 13:21 Resp 16 12/18/20 13:21 BP 104/54 L 12/18/20 13:21 Pulse Ox 95 12/18/20 13:21 - Orders/Labs/Meds Orders: Active Orders 24 hr Category Date Time Status Chest 2V [CR] Stat Exams 12/18/20 13:35 Ordered - Re-Assessments/Exams Free Text/Narrative Re-Assessment/Exam: Patient is a 70-year-old female presenting to the emergency part with complaints of a 2-week history of sinus congestion with postnasal drip, sore throat, ear pain, cough, chest congestion. Exam findings are grossly unremarkable. Lung sounds are clear. I ordered a two-view chest x-ray. 12/18/20 14:09 Chest x-ray shows signs of hyperinflation but there is no evidence of pneumonia. Given that patient has been ill for 2 weeks, we will treat for bacterial sinusitis with Augmentin. Patient uses [facility], however they are not open today. I did offer to send the prescriptions to [facility], however she requested them to be sent to [facility] and she will start treatment in the morning. Discharge instructions as documented. Departure - Departure Time of Disposition: 14:10 Disposition: Home, Self-Care 01 Condition: Good Clinical Impression: Sinusitis Qualifiers: Sinusitis location: unspecified location Chronicity: acute Recurrence: non- recurrent Qualified Code(s): J01.90 - Acute sinusitis, unspecified - Discharge Information *PRESCRIPTION DRUG MONITORING PROGRAM REVIEWED*: No *COPY OF PRESCRIPTION DRUG MONITORING REPORT IN PATIENT SANDOR: No Prescriptions: Amoxicillin/Clavulanate K [Augmentin 875-125 MG] 1 tab PO BID 5 Days #10 tab Instructions: Sinusitis, Adult, [id number] Referrals: Tyrone Rivas MD [Primary Care Provider] - Forms: ED Department Discharge Additional Instructions: You were seen in the emergency department today for 2-week history of sinus congestion, ear pain, postnasal drip, sore throat, and cough. Chest x-ray was completed and showed no evidence of pneumonia. You been started on Augmentin for treatment of bacterial sinusitis. Take this medication as prescribed. Recommend follow-up with your primary care provider if symptoms do not improve by c onclusion of treatment. Return to ER as needed. Sepsis Event Note (ED) - Evaluation Sepsis Screening Result: No Definite Risk - Focused Exam Vital Signs: Vital Signs Temp Pulse Resp BP Pulse Ox 12/18/20 13:21 96.4 F L 60 16 104/54 L 95 - My Orders Last 24 Hours: My Active Orders 12/18/20 13:35 Chest 2V [CR] Stat - Assessment/Plan Last 24 Hours: My Active Orders 12/18/20 13:35 Chest 2V [CR] Stat
[2020-12-18 14:34] VITALS: PULSE 71
--- NOTE | 2020-12-19 11:47 | CR ---
Chest: 2 views of the chest were obtained. Comparison: Prior chest x-ray 06/24/20 and 09/28/19. Heart size is normal. Tortuous thoracic aorta is seen. Lungs show no acute parenchymal change. Bilateral healed rib fractures are noted. Mild anterior wedge deformity is seen within the mid thoracic spine which is stable. Minimal scattered degenerative change within the spine with mild scoliosis is noted. Impression: 1. Miley findings as noted above. 2. Nothing acute is definitely appreciated on 2 view chest x-ray. Diagnostic code #2
== END 2020-12-18 14:34 | disposition home or self-care (01) ==
LOC: JD.ED 12:50
DX: J01.90 Acute sinusitis, unspecified (principal); I25.10 Atherosclerotic heart disease of native coronary artery without angina pectoris; E78.00 Pure hypercholesterolemia, unspecified; I10 Essential (primary) hypertension; K21.9 Gastro-esophageal reflux disease without esophagitis; E11.9 Type 2 diabetes mellitus without complications; J44.9 Chronic obstructive pulmonary disease, unspecified; Z79.899 Other long term (current) drug therapy; Z88.1 Allergy status to other antibiotic agents; Z91.011 Allergy to milk products; Z91.030 Bee allergy status; Z88.8 Allergy status to other drugs, medicaments and biological substances
CPT/HCPCS: 71046; 71046-26; 99283; 99283-25

== ENCOUNTER 2021-02-09 04:50 | Emergency (ER) | payer MEDICARE, OTHER ==
[2021-02-09 05:06] VITALS: BP 146/75; PULSE 72
--- NOTE | 2021-02-09 05:30 | EDM.PDOC ---
ED HPI GENERAL MEDICAL PROBLEM - General Chief Complaint: General Stated Complaint: DEHYDRATION Time Seen by Provider: 02/09/21 05:08 Source of Information: Reports: Patient History Limitations: Reports: Other (The patient is unable to provide a meaningful history) - History of Present Illness INITIAL COMMENTS - FREE TEXT/NARRATIVE: Ms. Rico is a pleasant 70-year-old woman who is now brought to the ED by her boyfriend, who, she states, is here because he thinks he is dehydrated - her boyfriend is also a patient in the ED. The patient states that since her boyfriend was coming to the ED, he wanted her to get checked out, as well. When asked if there were any specific medical issues she was concerned about, she reported that she has been experiencing earaches since childhood, a sore throat since last night, and a headache this morning. She states that she thinks she has a cold. No recent fever, chills, cough, dyspnea, chest pain or discomfort, or palpitations. Here in the ED, the patient's initial BP is found to be mildly elevated at 146/75, otherwise, she is hemodynamically stable, afebrile, saturating 95% on room air. She appears to be comfortable, in no acute distress. Prior to last night, the patient denies having a recent fever, chills, sore throat, nasal or sinus congestion, cough, dyspnea, chest pain, palpitations, nausea, vomiting, constipation, diarrhea, abdominal pain, urinary symptoms, recent weight gain or weight loss, recent bloody bowel movements or black bowel movements, recent joint aches, headaches, or rashes. The patient's PCP is Dr. Tyrone Rivas. Generalized Pain Score (Numeric/FACES): 8 - Related Data Allergies Allergy/AdvReac Type Severity Reaction Status Date / Time hornet venom Allergy Unknown Cannot Verified 02/09/21 05:01 Remember venom-honey bee Allergy Unknown Cannot Verified 02/09/21 05:01 [bee venom (honey bee)] Remember ibuprofen AdvReac Intermediate Bleeding Verified 02/09/21 05:01 doxycycline AdvReac Mild Headache Verified 02/09/21 05:01 ketoprofen AdvReac Mild Nausea Verified 02/09/21 05:01 lactose AdvReac Mild bloating Verified 02/09/21 05:01 Pork/Porcine Containing AdvReac Mild bloating Verified 02/09/21 05:01 Products Home Meds: Home Meds Dicyclomine [Bentyl] 10 mg PO QID 05/09/16 [History] Furosemide 20 mg PO DAILY 05/09/16 [History] Glimepiride [Amaryl] 2 mg PO DAILY 05/09/16 [History] Loratadine [Claritin] 10 mg PO DAILY 05/09/16 [History] Omeprazole 40 mg PO DAILY 05/09/16 [History] Potassium Chloride 10 meq PO DAILY 05/09/16 [History] atenoloL [Atenolol] 50 tab PO DAILY 05/09/16 [History] diazePAM [Diazepam] 10 mg PO QID PRN 05/09/16 [History] Albuterol [Proair HFA] 1 - 2 puff INH Q4H PRN 09/03/17 [History] EPINEPHrine [Epipen] 1 dose IM ONETIME PRN 09/03/17 [History] Acetaminophen/Butalbital/Caff [Fioricet 325-50-40 MG] 1 tab PO Q6H PRN 07/09/18 [History] Budesonide [Rhinocort Allergy] 1 spray NASBOTH BID 07/09/18 [History] atorvaSTATin [Lipitor] 10 mg PO DAILY 07/09/18 [History] oxyCODONE HCl/Acetaminophen [Percocet 5-325 mg Tablet] 1 - 2 each PO Q6H PRN #20 tablet 07/10/18 [Rx] Albuterol/Ipratropium [DuoNeb 3.0-0.5 MG/3 ML] 3 ml NEB Q6HR #25 ampule 01/27/19 [Rx] Amitriptyline [Elavil] 50 mg PO BEDTIME 05/20/19 [History] Clopidogrel Bisulfate [Plavix] 75 mg PO DAILY 05/20/19 [History] Fluticasone Propionate [Flonase] 1 dose NASBOTH BID 05/20/19 [History] Ibandronate Sodium [Boniva] 150 mg PO Q30D 05/20/19 [History] Codeine/Promethazine [Phenergan with Codeine] 5 - 10 ml PO Q6HR PRN #300 ml 09/17/19 [Rx] Amoxicillin 1,000 mg PO BID #40 tab 10/08/20 [Rx] Amoxicillin/Clavulanate K [Augmentin 875-125 MG] 1 tab PO BID 5 Days #10 tab 12/18/20 [Rx] Past Medical History HEENT History: Reports: Allergic Rhinitis, Impaired Vision (wears glasses) Cardiovascular History: Reports: CAD, High Cholesterol, Hypertension Gastrointestinal History: Reports: GERD, Hemorrhoids Musculoskeletal History: Reports: Fracture (ankle), Osteoarthritis, Osteoporosis Psychiatric History: Reports: Anxiety, Depression Endocrine/Metabolic History: Reports: Diabetes, Type II - Infectious Disease History Infectious Disease History: Reports: Novel Coronavirus (May 2020) - Past Surgical History HEENT Surgical History: Reports: Cataract Surgery, Tonsillectomy GI Surgical History: Reports: Appendectomy, Other (See Below) (Hemorrhoidectomy) Female Surgical History: Reports: Hysterectomy Neurological Surgical History: Reports: Sacral Spine Social & Family History - Family History Family Medical History: No Pertinent Family History - Tobacco Use Tobacco Use Status *Q: Unknown Ever Used Tobacco - Caffeine Use Caffeine Use: Reports: None - Living Situation & Occupation Living situation: Reports: , with Spouse Occupation: Retired ED ROS GENERAL - Review of Systems Review Of Systems: Comprehensive ROS is negative, except as noted in HPI. Musculoskeletal: Reports: Back Pain (chronic) ED EXAM, GENERAL - Physical Exam Exam: See Below Exam Limited By: No Limitations General Appearance: Alert, WD/WN, No Apparent Distress Eye Exam: Bilateral Eye: EOMI, Normal Inspection Ears: Normal External Exam, Normal Canal, Hearing Grossly Normal, Normal TMs Nose: Normal Inspection, Normal Mucosa, No Blood Throat/Mouth: Normal Inspection, Normal Lips, Normal Teeth, Normal Gums, Normal Oropharynx (no oropharyngeal erythema or swelling), Normal Voice, No Airway Compromise Head: Atraumatic, Normocephalic Neck: Normal Inspection, Supple, Non-Tender, Full Range of Motion. No: Lymphadenopathy (L), Lymphadenopathy (R) Respiratory/Chest: No Respiratory Distress, Lungs Clear, Normal Breath Sounds, No Accessory Muscle Use Cardiovascular: Normal Peripheral Pulses, Regular Rate, Rhythm, No Edema, No Gallop, No JVD, No Murmur, No Rub Peripheral Pulses: 3+: Radial (L), Radial (R) GI/Abdominal: Normal Bowel Sounds, Soft, Non-Tender, No Organomegaly, No Distention, No Abnormal Bruit, No Mass Back Exam: Normal Inspection, Full Range of Motion, NT Extremities: Normal Inspection, Normal Range of Motion, No Pedal Edema, Normal Capillary Refill Neurological: Alert, Oriented, Normal Cognition, No Motor/Sensory Deficits Psychiatric: Normal Affect Skin Exam: Warm, Dry, Intact, Normal Color, No Rash Course - Vital Signs Last Recorded V/S: Last Vital Signs Temp 36.9 C 02/09/21 05:02 Pulse 72 02/09/21 05:02 Resp 18 02/09/21 05:02 BP 146/75 H 02/09/21 05:02 Pulse Ox 95 02/09/21 05:02 - Re-Assessments/Exams Free Text/Narrative Re-Assessment/Exam: 02/09/21 05:25 As above, the patient was brought to the ED by her boyfriend, because he thinks that he is dehydrated, but he also wanted her to be checked out. Her only complaints are of a lifetime of earaches, a sore throat since last night, and a headache this morning. She stated that she thinks she has a cold. No recent fever. Her physical exam is unremarkable. I see no suggestion of an ear or oral pharyngeal infection. Given her age, physical exam, and since she previously underwent a tonsillectomy, I do not see an indication to check for Group A strep. The patient stated that she wants me to prescribe an antibiotic. I explained that I do not see a bacterial infection that requires an antibiotic. She stated that her PCP had prescribed an antibiotic for a cold 1 or 2 weeks ago. I don't know if that is true or not, but at this time, I do not see an indication for an antibiotic. She stated that she is immunocompromised and therefore feels that she needs an antibiotic, however, she was unable to tell me what illness makes her immunocompromised. I will discharge the patient home, and if she wants an antibiotic, she will need to see her PCP. Departure - Departure Time of Disposition: 05:27 Disposition: Home, Self-Care 01 Condition: Good Clinical Impression: Viral URI - Discharge Information *PRESCRIPTION DRUG MONITORING PROGRAM REVIEWED*: Not Applicable *COPY OF PRESCRIPTION DRUG MONITORING REPORT IN PATIENT SANDOR: Not Applicable Instructions: Upper Respiratory Infection, Adult, [id number] Referrals: Tyrone Rivas MD [Primary Care Provider] - Forms: ED Department Discharge Additional Instructions: You were seen in the emergency room for your aches since childhood, a sore throat since last night, and a headache this morning. No abnormalities were found on physical exam. You do not have an ear infection. No sign of a throat infection was found. Based on your history and physical exam, you are most likely suffering from a viral upper respiratory infection. As discussed, antibiotics are not indicated for viral upper respiratory infections. If your symptoms persist, please follow-up with your PCP, Dr. Rivas, for further evaluation. Sepsis Event Note (ED) - Evaluation Sepsis Screening Result: No Definite Risk
== END 2021-02-09 05:44 | disposition home or self-care (01) ==
LOC: JD.ED 04:50
DX: J06.9 Acute upper respiratory infection, unspecified (principal); I25.10 Atherosclerotic heart disease of native coronary artery without angina pectoris; E78.00 Pure hypercholesterolemia, unspecified; I10 Essential (primary) hypertension; K21.9 Gastro-esophageal reflux disease without esophagitis; E11.9 Type 2 diabetes mellitus without complications; Z79.899 Other long term (current) drug therapy; Z91.030 Bee allergy status; Z88.1 Allergy status to other antibiotic agents; Z88.6 Allergy status to analgesic agent; Z91.011 Allergy to milk products; Z88.8 Allergy status to other drugs, medicaments and biological substances
CPT/HCPCS: 99282; 99283

== ENCOUNTER 2021-04-05 16:33 | Emergency (ER) | payer MEDICARE, SELFPAY ==
[2021-04-05 17:29] VITALS: BP 114/66; PULSE 54
--- NOTE | 2021-04-05 19:18 | EDM.PDOC ---
ED HPI GENERAL MEDICAL PROBLEM - General Chief Complaint: Upper Extremity Injury/Pain Stated Complaint: ARM PAIN Time Seen by Provider: 04/05/21 19:06 Source of Information: Reports: Patient, Family History Limitations: Reports: No Limitations - History of Present Illness INITIAL COMMENTS - FREE TEXT/NARRATIVE: Patient is a 70-year-old female who fell 5 days ago and her daughter scratch landing on her left shoulder and her tailbone and is continuing pain to her shoulder since. Patient states the pain does travel down to her forearm but she has full range of motion of her wrist and elbow without any swelling or tenderness in either area. I see no ecchymosis or hematoma or swelling to her shoulder either but she is tender to touch in this area. Patient has been taking some OxyContin and is in the pain clinic for chronic pain. She denies any head trauma or neck pain any torso pain or trauma or shortness of breath. She had no abdominal injury with this fall and all her other extremities are at baseline. Duration: Day(s): (5) Location: Reports: Upper Extremity, Left Quality: Reports: Ache Severity: Moderate Improves with: Reports: None Worsens with: Reports: Movement Context: Reports: Trauma Associated Symptoms: Reports: No Other Symptoms Left Upper Arm Pain Score (Numeric/FACES): 10 - Related Data Allergies Allergy/AdvReac Type Severity Reaction Status Date / Time hornet venom Allergy Unknown Cannot Verified 02/09/21 05:01 Remember venom-honey bee Allergy Unknown Cannot Verified 02/09/21 05:01 [bee venom (honey bee)] Remember ibuprofen AdvReac Intermediate Bleeding Verified 02/09/21 05:01 doxycycline AdvReac Mild Headache Verified 02/09/21 05:01 ketoprofen AdvReac Mild Nausea Verified 02/09/21 05:01 lactose AdvReac Mild bloating Verified 02/09/21 05:01 Pork/Porcine Containing AdvReac Mild bloating Verified 02/09/21 05:01 Products Home Meds: Home Meds Dicyclomine [Bentyl] 10 mg PO QID 05/09/16 [History] Furosemide 20 mg PO DAILY 05/09/16 [History] Glimepiride [Amaryl] 2 mg PO DAILY 05/09/16 [History] Loratadine [Claritin] 10 mg PO DAILY 05/09/16 [History] Omeprazole 40 mg PO DAILY 05/09/16 [History] Potassium Chloride 10 meq PO DAILY 05/09/16 [History] atenoloL [Atenolol] 50 tab PO DAILY 05/09/16 [History] diazePAM [Diazepam] 10 mg PO QID PRN 05/09/16 [History] Albuterol [Proair HFA] 1 - 2 puff INH Q4H PRN 09/03/17 [History] EPINEPHrine [Epipen] 1 dose IM ONETIME PRN 09/03/17 [History] Acetaminophen/Butalbital/Caff [Fioricet 325-50-40 MG] 1 tab PO Q6H PRN 07/09/18 [History] Budesonide [Rhinocort Allergy] 1 spray NASBOTH BID 07/09/18 [History] atorvaSTATin [Lipitor] 10 mg PO DAILY 07/09/18 [History] oxyCODONE HCl/Acetaminophen [Percocet 5-325 mg Tablet] 1 - 2 each PO Q6H PRN #20 tablet 07/10/18 [Rx] Albuterol/Ipratropium [DuoNeb 3.0-0.5 MG/3 ML] 3 ml NEB Q6HR #25 ampule 01/27/19 [Rx] Amitriptyline [Elavil] 50 mg PO BEDTIME 05/20/19 [History] Clopidogrel Bisulfate [Plavix] 75 mg PO DAILY 05/20/19 [History] Fluticasone Propionate [Flonase] 1 dose NASBOTH BID 05/20/19 [History] Ibandronate Sodium [Boniva] 150 mg PO Q30D 05/20/19 [History] Codeine/Promethazine [Phenergan with Codeine] 5 - 10 ml PO Q6HR PRN #300 ml 09/17/19 [Rx] Amoxicillin 1,000 mg PO BID #40 tab 10/08/20 [Rx] Amoxicillin/Clavulanate K [Augmentin 875-125 MG] 1 tab PO BID 5 Days #10 tab 12/18/20 [Rx] Lidocaine 5% [Lidoderm 5%] 1 patch TOP DAILY PRN #10 patch 04/05/21 [Rx] Past Medical History HEENT History: Reports: Allergic Rhinitis, Impaired Vision Other HEENT History: Wears glasses Cardiovascular History: Reports: CAD, High Cholesterol, Hypertension Respiratory History: Reports: COPD Other Respiratory History: coughing Gastrointestinal History: Reports: GERD, Hemorrhoids Other Gastrointestinal History: abdominal pain Genitourinary History: Reports: None 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 SENIOR ENERGY TRADER History: 3 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 Musculoskeletal History: Reports: Fracture, Osteoarthritis, Osteoporosis Other Musculoskeletal History: fracture ankle Neurological History: Reports: Concussion, Headaches, Chronic, TIA Psychiatric History: Reports: Anxiety, Depression Endocrine/Metabolic History: Reports: Diabetes, Type II Hematologic History: Reports: None Immunologic History: Reports: None Oncologic (Cancer) History: Reports: None Dermatologic History: Reports: Other (See Below) Other Dermatologic History: bug bite - Infectious Disease History Infectious Disease History: Reports: Novel Coronavirus - Past Surgical History Head Surgeries/Procedures: Reports: None HEENT Surgical History: Reports: Cataract Surgery, Tonsillectomy Cardiovascular Surgical History: Reports: None Respiratory Surgical History: Reports: None GI Surgical History: Reports: Appendectomy, Other (See Below) Other GI Surgeries/Procedures: prolapsed hemorrhoid surgery Female Surgical History: Reports: Hysterectomy 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 Oncologic Surgical History: Reports: None Dermatological Surgical History: Reports: None Social & Family History - Family History Family Medical History: No Pertinent Family History - Tobacco Use Tobacco Use Status *Q: Current Every Day Tobacco User Years of Tobacco use: 50 Packs/Tins Daily: 0.5 - Caffeine Use Caffeine Use: Reports: Coffee - Recreational Drug Use Recreational Drug Use: No - Living Situation & Occupation Living situation: Reports: , with Spouse Occupation: Retired Review of Systems - Review of Systems Review Of Systems: Comprehensive ROS is negative, except as noted in HPI. Constitutional: Reports: No Symptoms Musculoskeletal: Reports: Shoulder Pain (On the left side.) Neurological: Reports: No Symptoms Psychiatric: Reports: No Symptoms ED EXAM, GENERAL - Physical Exam Exam: See Below Exam Limited By: No Limitations General Appearance: Alert, Other (Patient is somewhat listless.) Head: Atraumatic, Normocephalic Neck: Normal Inspection, Supple Respiratory/Chest: No Respiratory Distress GI/Abdominal: No Distention Back Exam: Normal Inspection Extremities: Arm Pain, Limited Range of Motion (With patient's left shoulder.) Neurological: Alert, CN II-XII Intact Skin Exam: Warm, Dry Course - Vital Signs Text/Narrative:: X-ray shows no fracture of the shoulder. I am placing patient in knee immobilizer will give her a prescription for Lidoderm. I am not giving her any additional pain medication. She may try some [id number] Voltaren gel. She may follow-up with her PCP if symptoms continue. Last Recorded V/S: Last Vital Signs Temp 99.6 F 04/05/21 17:26 Pulse 54 L 04/05/21 17:26 Resp 20 04/05/21 17:26 BP 114/66 04/05/21 17:26 Pulse Ox 94 L 04/05/21 17:26 - Orders/Labs/Meds Orders: Active Orders 24 hr Category Date Time Status Shoulder Comp Lt [CR] Stat Exams 04/05/21 19:14 Taken Lidocaine 4% [Aspercreme 4%] Med 04/05/21 19:30 Active 1 each TOP DAILY PRN Medication Orders Lidocaine (Lidocaine 4% 1 Each Patch) 1 each TOP DAILY PRN PRN Reason: Pain Last Admin: 04/05/21 19:58 Dose: 1 each Documented by: AURA Emmanuels: Medications Generic Name Dose Route Start Last Admin Trade Name Freq PRN Reason Stop Dose Admin Lidocaine 1 each 04/05/21 19:30 04/05/21 19:58 Lidocaine 4% 1 Each Patch TOP 1 each DAILY PRN Administration Pain Departure - Departure Time of Disposition: 20:53 Disposition: Home, Self-Care 01 Condition: Good Clinical Impression: Injury of left rotator cuff, Sprain of shoulder - Discharge Information Instructions: How To Use a Sling, [id number], Shoulder Pain, [id number] Referrals: Tyrone Rivas MD [Primary Care Provider] - Forms: ED Department Discharge Additional Instructions: [id number] Voltaren as needed. Lidoderm if it is helping with pain symptoms. Follow-up with orthopedic provider if not improving. Return to ER symptoms are worse. Sepsis Event Note (ED) - Focused Exam Vital Signs: Vital Signs Temp Pulse Resp BP Pulse Ox 04/05/21 17:26 99.6 F 54 L 20 114/66 94 L - My Orders Last 24 Hours: My Active Orders 04/05/21 19:14 Shoulder Comp Lt [CR] Stat 04/05/21 19:30 Lidocaine 4% [Aspercreme 4%] 1 each TOP DAILY PRN - Assessment/Plan Last 24 Hours: My Active Orders 04/05/21 19:14 Shoulder Comp Lt [CR] Stat 04/05/21 19:30 Lidocaine 4% [Aspercreme 4%] 1 each TOP DAILY PRN
[2021-04-05] MEDS ORDERED: Lidocaine 4% 1 each Patch TOP PRN (19:30)
--- NOTE | 2021-04-06 07:22 | CR ---
Left shoulder: 4 views of the left shoulder were obtained. Comparison: No prior left shoulder study is available. Glenohumeral joint appears within normal limits. Mild inferior spurring is noted off the acromion process at the acromioclavicular joint. No acute fracture, dislocation or other bony abnormality is seen. There are multiple old healed left-sided rib fractures being seen. Impression: 1. Slight inferior spurring off the acromioclavicular joint. 2. Old healed left-sided rib fractures are noted. 3. Nothing acute is appreciated on left shoulder study. Diagnostic code #2
== END 2021-04-05 21:10 | disposition home or self-care (01) ==
LOC: JD.ED 16:33
DX: S43.422A Sprain of left rotator cuff capsule, initial encounter (principal); I25.10 Atherosclerotic heart disease of native coronary artery without angina pectoris; E78.00 Pure hypercholesterolemia, unspecified; I10 Essential (primary) hypertension; J44.9 Chronic obstructive pulmonary disease, unspecified; E11.9 Type 2 diabetes mellitus without complications; K21.9 Gastro-esophageal reflux disease without esophagitis; Z86.73 Personal history of transient ischemic attack (TIA), and cerebral infarction without residual deficits; Z91.030 Bee allergy status; Z91.011 Allergy to milk products; Z88.1 Allergy status to other antibiotic agents; Z88.8 Allergy status to other drugs, medicaments and biological substances; Z79.899 Other long term (current) drug therapy; Z72.0 Tobacco use; W18.39XA Other fall on same level, initial encounter
CPT/HCPCS: 73030-26-LT; 73030-LT; 99283; 99283-25

== ENCOUNTER 2021-11-28 17:59 | Emergency (ER) | payer MEDICARE, OTHER, SELFPAY ==
[2021-11-28 18:12] VITALS: BP 113/84; PULSE 94
== END 2021-11-28 20:07 | disposition home or self-care (01) ==
LOC: JD.ED 17:59
DX: S99.912A Unspecified injury of left ankle, initial encounter (principal); I25.10 Atherosclerotic heart disease of native coronary artery without angina pectoris; I10 Essential (primary) hypertension; E78.00 Pure hypercholesterolemia, unspecified; J44.9 Chronic obstructive pulmonary disease, unspecified; E11.9 Type 2 diabetes mellitus without complications; M19.90 Unspecified osteoarthritis, unspecified site; Z91.030 Bee allergy status; Z88.8 Allergy status to other drugs, medicaments and biological substances; Z88.1 Allergy status to other antibiotic agents; Z91.011 Allergy to milk products; Z79.02 Long term (current) use of antithrombotics/antiplatelets; Z79.899 Other long term (current) drug therapy; Z86.73 Personal history of transient ischemic attack (TIA), and cerebral infarction without residual deficits; W01.0XXA Fall on same level from slipping, tripping and stumbling without subsequent striking against object, initial encounter
CPT/HCPCS: 73590-26-LT; 73590-LT; 73630-26-LT; 73630-LT; 99283-25

== ENCOUNTER 2021-12-15 18:54 | Emergency (ER) | payer MEDICARE ==
[2021-12-15 20:22] VITALS: BP 118/78; PULSE 77
== END 2021-12-15 20:21 | disposition home or self-care (01) ==
LOC: JD.ED 18:54
DX: J01.90 Acute sinusitis, unspecified (principal); I25.10 Atherosclerotic heart disease of native coronary artery without angina pectoris; E78.00 Pure hypercholesterolemia, unspecified; I10 Essential (primary) hypertension; J44.9 Chronic obstructive pulmonary disease, unspecified; K21.9 Gastro-esophageal reflux disease without esophagitis; Z91.030 Bee allergy status; Z88.1 Allergy status to other antibiotic agents; Z91.011 Allergy to milk products; Z88.8 Allergy status to other drugs, medicaments and biological substances; Z91.018 Allergy to other foods; Z79.899 Other long term (current) drug therapy; Z86.73 Personal history of transient ischemic attack (TIA), and cerebral infarction without residual deficits
CPT/HCPCS: 99282

== ENCOUNTER 2023-07-20 20:18 | Emergency (ER) | payer MEDICARE, OTHER ==
[2023-07-20 21:22] LABS: CORONAVIRUS COVID-19 NAA NEGATIVE (NEGATIVE); INFLUENZA A NAA POSITIVE (NEGATIVE); RESPIRATORY SYNCYTIAL VIR NAA NEGATIVE (NEGATIVE)
[2023-07-20] MEDS ORDERED: Ondansetron 4 MG Tab.DIS PO ONE (21:32)
[2023-07-20] MEDS ORDERED: predniSONE 20 MG Tab PO ONE (21:33)
[2023-07-20 23:05] VITALS: BP 109/62; PULSE 89
== END 2023-07-20 22:53 | disposition home or self-care (01) ==
LOC: JD.ED 20:18
DX: J10.1 Influenza due to other identified influenza virus with other respiratory manifestations (principal); Z20.822 Contact with and (suspected) exposure to COVID-19; I25.10 Atherosclerotic heart disease of native coronary artery without angina pectoris; E78.00 Pure hypercholesterolemia, unspecified; I10 Essential (primary) hypertension; J44.9 Chronic obstructive pulmonary disease, unspecified; K21.9 Gastro-esophageal reflux disease without esophagitis; E11.9 Type 2 diabetes mellitus without complications; Z86.16 Personal history of COVID-19; Z91.030 Bee allergy status; Z91.011 Allergy to milk products
CPT/HCPCS: 0241U; 71045; 99284; A9270; J7512

== ENCOUNTER 2025-05-03 03:07 | Emergency (ER) | payer MEDICARE, OTHER ==
[2025-05-03 03:19] VITALS: BP 129/64; PULSE 74
[2025-05-03] MEDS: Acetaminophen/Butalbital/Caffeine 325-50-40 MG Tab PO ONE (03:55)
== END 2025-05-03 03:59 | disposition home or self-care (01) ==
LOC: JD.ED 03:07
DX: Z76.0 Encounter for issue of repeat prescription (principal); E78.00 Pure hypercholesterolemia, unspecified; J44.89 Other specified chronic obstructive pulmonary disease; K21.9 Gastro-esophageal reflux disease without esophagitis; E11.9 Type 2 diabetes mellitus without complications; F17.210 Nicotine dependence, cigarettes, uncomplicated; Z91.018 Allergy to other foods; Z91.030 Bee allergy status; Z88.8 Allergy status to other drugs, medicaments and biological substances; Z91.0110 Allergy to milk products, unspecified; Z91.014 Allergy to mammalian meats; Z79.84 Long term (current) use of oral hypoglycemic drugs; Z79.899 Other long term (current) drug therapy; Z79.02 Long term (current) use of antithrombotics/antiplatelets
CPT/HCPCS: 99281; A9270-GY